=== PATIENT | male | born 1990 | race Caucasian/White ===

== ENCOUNTER 2019-03-31 14:30 | Outpatient (RCR) | payer OTHER, MEDICAID, SELFPAY ==
--- NOTE | 2017-08-19 11:21 | PT.OTN ---
Current Diagnoses Spastic hemiplegia affecting right dominant side (08/19/17) Cerebral infarction due to unspecified occlusion or stenosis of left middle cerebral artery (08/19/17) Difficulty in walking, not elsewhere classified (08/19/17) Repeated falls (08/19/17) Apraxia (08/19/17) Weakness (08/19/17) Transition note: On August 17, 2017 our therapy services consisting of Speech, Occupational, and Physical Therapy transitioned from the [employer] electronic documentation system to a new [employer] electronic documentation system.?? All documentation prior to August 17 can be found under [employer] saved data. From August 17 forward all medical record documentation will be in [employer] 6.1.
--- NOTE | 2017-08-19 18:11 | PT.OTN ---
Current Diagnoses Spastic hemiplegia affecting right dominant side (08/19/17) Cerebral infarction due to unspecified occlusion or stenosis of left middle cerebral artery (08/19/17) Difficulty in walking, not elsewhere classified (08/19/17) Repeated falls (08/19/17) Apraxia (08/19/17) Weakness (08/19/17) Physical Therapy Treatment Note PT-OP-A Visit Information Start: 08/19/17 08:09 Freq: Status: Active Protocol: Activity Type Activity Date Activity User E-Sign Co-Sign Detail Recorded Client Recorded Date Recorded By Document 08/19/17 11:25 [facility] [id number] 08/19/17 11:28 [facility] 08/19/17 11:25 Out-Patient Physical Therapy Visit Information [Visit Information] -Visit Type Treatment Note -Visit Start Time 11:17 -Visit Stop Time 12:15 -Total Visit Minutes 58 -Visit Number 23 -Number of WIRE WRAPPER MACHINE OPERATOR Visits 0 PT-OP-C Subjective Start: 08/19/17 08:09 Freq: Status: Active Protocol: Activity Type Activity Date Activity User E-Sign Co-Sign Detail Recorded Client Recorded Date Recorded By Document 08/19/17 11:14 [facility] [id number] 08/19/17 11:25 [facility] 08/19/17 11:14 OP-PT Subjective [Patient Comments] -Patient Comments No new c/o, hasn't ridden exerise bike yet: I forgot. Planted seeds in greenhouse. No falls recently ; fell while pulling wheel [place] 1 month ago, no injury. PT-OP-Q Treatments Start: 08/19/17 08:09 Freq: Status: Active Protocol: Activity Type Activity Date Activity User E-Sign Co-Sign Detail Recorded Client Recorded Date Recorded By Document 08/19/17 18:06 [facility] [id number] 08/19/17 18:10 [facility] 08/19/17 18:06 Cardio Equipment [Bicycle (Upright)] -Duration (Minutes) 10 -Resistance 9 -Seat Position 6 -Other 4 rounds of 30 :30 intervals Gym Equipment [Shuttle Balance] 1 -Details side to side and fwd/bck without AFO -Reps/Duration 10 Gait Training [Gait Activity] 2 -Description Gait with emphasis on narrowing gait -Surface short carpet -Distance/Duration 6 min -Comments no AFO 1 -Description stair gait on multiple staircases -Device Used rail or PT manual -Comments gait indoors and outdoors 4 , 6, with and without rail ( PT assist without rail) PT-OP-R Modalities Start: 08/19/17 08:09 Freq: Status: Active Protocol: Activity Type Activity Date Activity User E-Sign Co-Sign Detail Recorded Client Recorded Date Recorded By Document 08/19/17 18:10 [facility] [id number] 08/19/17 18:11 [facility] 08/19/17 18:10 Electric Stimulation [Electric Stimulation] [place] Stimulation -Duration (Minutes) 10 -Contraction Type Normal -High/Low High -Cycle 10/10 -Patient Position Sitting PT-OP-T Assessment and Plan Start: 08/19/17 08:09 Freq: Status: Active Protocol: Activity Type Activity Date Activity User E-Sign Co-Sign Detail Recorded Client Recorded Date Recorded By Document 08/19/17 18:10 [facility] [id number] 08/19/17 18:11 [facility] 08/19/17 18:10 Physical Therapy Assessment [Progress Towards Goals] -Progress Towards Goals Progressing Toward Goals Physical Therapy Plan [Next Visit Focus/Plan] -Next Visit Plan Progress PT for improved gait, balance, strength, functional activities
--- NOTE | 2017-08-26 16:48 | PT.OTN ---
Current Diagnoses Spastic hemiplegia affecting right dominant side (08/26/17) Cerebral infarction due to unspecified occlusion or stenosis of left middle cerebral artery (08/26/17) Difficulty in walking, not elsewhere classified (08/26/17) Repeated falls (08/26/17) Apraxia (08/26/17) Weakness (08/26/17) Physical Therapy Treatment Note PT-OP-A Visit Information Start: 08/19/17 08:09 Freq: Status: Active Protocol: Document 08/19/17 11:25 SAK (Rec: 08/19/17 11:28 SAK [id number]) Out-Patient Physical Therapy Visit Information Visit Information Visit Type Treatment Note Visit Start Time 11:17 Visit Stop Time 12:15 Total Visit Minutes 58 Visit Number 23 Number of DATABASES SOFTWARE CONSULTANT Visits 0 PT-OP-C Subjective Start: 08/19/17 08:09 Freq: Status: Active Protocol: Document 08/26/17 11:25 SAK (Rec: 08/26/17 12:59 [facility] [id number]) OP-PT Subjective Patient Comments Patient Comments LE's fatigued after lots of gardening yesterday Patient Reported Progress Improving PT-OP-Q Treatments Start: 08/19/17 08:09 Freq: Status: Active Protocol: Document 08/26/17 11:25 SAK (Rec: 08/26/17 12:59 [facility] [id number]) Cardio Equipment Bicycle (Upright) Duration (Minutes) 10 Resistance 9 Seat Position 6 Other 4 rounds of 30:30 intervals Gym Equipment Shuttle Balance 1 Details side to side and fwd/bck without AFO Reps/Duration 10 Comments no AFO Sport Cord 1 Exercise Details forward, back, side Cord/Resistance 2 Gait Training Gait Activity 2 Description Gait with emphasis on narrowing gait Surface short carpet Distance/Duration 6 min Comments no AFO, mirror for visual feedback, verbal and manual cues for gluteal activation, upright posture for safe gait PT-OP-R Modalities Start: 08/19/17 08:09 Freq: Status: Active Protocol: Document 08/26/17 11:25 SAK (Rec: 08/26/17 12:59 [facility] [id number]) Electric Stimulation Electric Stimulation [place] Stimulation Duration (Minutes) 10 Contraction Type Normal High/Low High Cycle 10/10 Patient Position Sitting PT-OP-T Assessment and Plan Start: 08/19/17 08:09 Freq: Status: Active Protocol: Document 08/26/17 16:32 [facility] (Rec: 08/26/17 16:48 [facility] [id number]) Physical Therapy Assessment Progress Towards Goals Progress Comments Improved gait with use of sport cord and focus on correct gluteal activation and sequencing as well as hutson bag on head for improved core control and upright posture with gait and decreased lateral sway. Physical Therapy Plan Frequency and Duration Frequency of Treatment 2x/Week Duration of Treatment 3 months Plan of Care Start Date 07/21/17 Plan of Care End Date 10/19/17 Therapeutic Interventions Therapeutic Interventions Aquatic Therapy Balance Training Gait Training Home Exercise Program Neuromuscular Re-education Patient/Caregiver Education Self-Care/Home Management Therapeutic Activities Therapeutic Exercises
--- NOTE | 2017-09-23 13:46 | PT.OTN ---
Current Diagnoses Spastic hemiplegia affecting right dominant side (09/23/17) Cerebral infarction due to unspecified occlusion or stenosis of left middle cerebral artery (09/23/17) Difficulty in walking, not elsewhere classified (09/23/17) Repeated falls (09/23/17) Apraxia (09/23/17) Weakness (09/23/17) Physical Therapy Treatment Note PT-OP-A Visit Information Start: 08/19/17 08:09 Freq: Status: Active Protocol: Document 09/23/17 11:22 [facility] (Rec: 09/23/17 13:45 [facility] [id number]) Out-Patient Physical Therapy Visit Information Visit Information Visit Type Treatment Note Visit Start Time 11:15 Visit Stop Time 12:00 Total Visit Minutes 45 PT-OP-C Subjective Start: 08/19/17 08:09 Freq: Status: Active Protocol: Document 09/23/17 11:22 [facility] (Rec: 09/23/17 13:45 [facility] [id number]) OP-PT Subjective Patient Comments Patient Comments Reports he has been using his outdoor tricycle. Notes he wants to work on steps PT-OP-Q Treatments Start: 08/19/17 08:09 Freq: Status: Active Protocol: Document 09/23/17 11:22 [facility] (Rec: 09/23/17 13:45 [facility] [id number]) Cardio Equipment Bicycle (Upright) Duration (Minutes) 10 Resistance 9 Seat Position 6 Other 4 rounds of 30:30 intervals Gym Equipment Shuttle Balance 2 Details shuttle squats 1 Details side to side and fwd/bck without AFO Reps/Duration 10 Comments no AFO balance in each position then wt shifting Therapeutic Exercises Standing Exercises 1 Standing Exercise Name lunge on bosu Reps/Minutes 15 Gait Training Gait Activity 3 Description up 6 in steps and down 4 in steps Comments no rails PT-OP-R Modalities Start: 08/19/17 08:09 Freq: Status: Active Protocol: Document 08/26/17 11:25 [facility] (Rec: 08/26/17 12:59 [facility]AK [id number]) Electric Stimulation Electric Stimulation Bulgarian Stimulation Duration (Minutes) 10 Contraction Type Normal High/Low High Cycle 10/10 Patient Position Sitting PT-OP-T Assessment and Plan Start: 08/19/17 08:09 Freq: Status: Active Protocol: Document 09/23/17 11:22 [facility] (Rec: 09/23/17 13:45 [facility] [id number]) Physical Therapy Assessment Assessment Summary Assessment Pt did well with ascending stairs without rail with minor imbalance but had difficulty w/ decent. Encouraged to cont working on SLS. Unable to get stim contraction today. Physical Therapy Plan Frequency and Duration Frequency of Treatment 2x/Week Duration of Treatment 3 months Plan of Care Start Date 07/21/17 Plan of Care End Date 10/19/17 Therapeutic Interventions Therapeutic Interventions Aquatic Therapy Balance Training Gait Training Home Exercise Program Neuromuscular Re-education Patient/Caregiver Education Self-Care/Home Management Therapeutic Activities Therapeutic Exercises Next Visit Focus/Plan Next Visit Plan Cont to work on strength & balance Please Sign and Return: I have reviewed this Plan of Care and certify that the skilled therapy services above are required to meet the patient?s needs. Physician Signature Date Printed Name and Credentials Clinical Instructor Signature Printed Name and Credentials
--- NOTE | 2017-09-27 14:51 | PT.OTN ---
Current Diagnoses Spastic hemiplegia affecting right dominant side (09/27/17) Cerebral infarction due to unspecified occlusion or stenosis of left middle cerebral artery (09/27/17) Difficulty in walking, not elsewhere classified (09/27/17) Repeated falls (09/27/17) Apraxia (09/27/17) Weakness (09/27/17) Physical Therapy Treatment Note PT-OP-A Visit Information Start: 08/19/17 08:09 Freq: Status: Active Protocol: Document 09/27/17 11:30 [facility] (Rec: 09/27/17 14:51 TMS [email or web address]) Out-Patient Physical Therapy Visit Information Visit Information Visit Type Treatment Note Visit Start Time 11:00 Visit Stop Time 11:45 Total Visit Minutes 45 Number of FAMILY AND MARRIAGE COUNSELLOR Visits 1 PT-OP-C Subjective Start: 08/19/17 08:09 Freq: Status: Active Protocol: Document 09/27/17 11:30 [facility] (Rec: 09/27/17 14:51 [facility]MS [email or web address]) OP-PT Subjective Patient Comments Patient Comments Pt. has estefania godoy. PT-OP-Q Treatments Start: 08/19/17 08:09 Freq: Status: Active Protocol: Document 09/23/17 11:22 [facility] (Rec: 09/23/17 13:45 [facility] [id number]) Cardio Equipment Bicycle (Upright) Duration (Minutes) 10 Resistance 9 Seat Position 6 Other 4 rounds of 30:30 intervals Gym Equipment Shuttle Balance 2 Details shuttle squats 1 Details side to side and fwd/bck without AFO Reps/Duration 10 Comments no AFO balance in each position then wt shifting Therapeutic Exercises Standing Exercises 1 Standing Exercise Name lunge on bosu Reps/Minutes 15 Gait Training Gait Activity 3 Description up 6 in steps and down 4 in steps Comments no rails PT-OP-R Modalities Start: 08/19/17 08:09 Freq: Status: Active Protocol: Document 08/26/17 11:25 [facility]AK (Rec: 08/26/17 12:59 SAK [id number]) Electric Stimulation Electric Stimulation Estonian Stimulation Duration (Minutes) 10 Contraction Type Normal High/Low High Cycle 10/10 Patient Position Sitting PT-OP-S Aquatic Treatment Start: 09/27/17 14:34 Freq: Status: Active Protocol: Document 09/27/17 11:30 [facility] (Rec: 09/27/17 14:51 [facility] [email or web address]) Aquatics Treatment Pool Entry/Exit Pool Entry/Exit Method Stairs Assistance Standby Assistance Comments Down;step over step. Up; Step over for 2, step to for 2. Water Walking Sideways Water Level Chest Level Level of Assistance Standby Assistance Forwards Water Level Chest Level Level of Assistance Standby Assistance Comments Cues Lower Extremity Exercises 5 Details Single leg standing Body Position Standing Water Level Waist Level 4 Details Step ups Body Position Standing Water Level Waist Level Comments 4 and 6 inch boxes 3 Details Lunges Body Position Standing Water Level Waist Level Equipment St 2 Details Squats Body Position Standing Water Level Chest Level 1 Details Clock steps Body Position Standing Water Level Chest Level Lower Extremity Stretches 1 Details Gastroc stretching Body Position Standing Water Level Waist Level Comments Manual assist Orange Activities Orange Activities Bicycle [place] Hip Abduction/Adduction Sit Kicks Equipment Belt Duration 3 minutes of each Swim Strokes Backstroke Comments 6 minutes PT-OP-T Assessment and Plan Start: 08/19/17 08:09 Freq: Status: Active Protocol: Document 09/27/17 11:30 [facility] (Rec: 09/27/17 14:51 [facility] [id number]) Physical Therapy Assessment Assessment Summary Assessment Pt. able to step over step descending into pool, only able to step over step for 2 steps ascending. Able to self correct with balance activities. Physical Therapy Plan Frequency and Duration Frequency of Treatment 2x/Week Duration of Treatment 3 months Plan of Care Start Date 07/21/17 Plan of Care End Date 10/19/17 Next Visit Focus/Plan Next Visit Plan Cont to work on strength & balance Please Sign and Return: I have reviewed this Plan of Care and certify that the skilled therapy services above are required to meet the patient?s needs. Physician Signature Date Printed Name and Credentials Clinical Instructor Signature Printed Name and Credentials
--- NOTE | 2017-10-19 17:08 | PT.OTN ---
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 (10/18/17) Difficulty in walking, not elsewhere classified (10/18/17) Repeated falls (10/18/17) Apraxia (10/18/17) Weakness (10/18/17) Physical Therapy Treatment Note PT-OP-A Visit Information Start: 08/19/17 08:09 Freq: Status: Active Protocol: Document 10/18/17 12:15 SAK (Rec: 10/19/17 17:08 [facility] [id number]) Out-Patient Physical Therapy Visit Information Visit Information Visit Type Treatment Note Visit Start Time 12:15 Visit Stop Time 13:00 Total Visit Minutes 45 Number of SHOPPER'S AIDE Visits 0 PT-OP-C Subjective Start: 08/19/17 08:09 Freq: Status: Active Protocol: Document 10/18/17 12:15 SAK (Rec: 10/19/17 17:08 [facility] [id number]) OP-PT Subjective Patient Comments Patient Comments Reports he feels he is walking faster, continues to benefit from PT. No recent falls or seizures. Patient Reported Progress Improving PT-OP-Q Treatments Start: 08/19/17 08:09 Freq: Status: Active Protocol: Document 09/23/17 11:22 LR (Rec: 09/23/17 13:45 [facility] [id number]) Cardio Equipment Bicycle (Upright) Duration (Minutes) 10 Resistance 9 Seat Position 6 Other 4 rounds of 30:30 intervals Gym Equipment Shuttle Balance 2 Details shuttle squats 1 Details side to side and fwd/bck without AFO Reps/Duration 10 Comments no AFO balance in each position then wt shifting Therapeutic Exercises Standing Exercises 1 Standing Exercise Name lunge on bosu Reps/Minutes 15 Gait Training Gait Activity 3 Description up 6 in steps and down 4 in steps Comments no rails PT-OP-R Modalities Start: 08/19/17 08:09 Freq: Status: Active Protocol: Document 08/26/17 11:25 SAK (Rec: 08/26/17 12:59 SAK [id number]) Electric Stimulation Electric Stimulation [place] Stimulation Duration (Minutes) 10 Contraction Type Normal High/Low High Cycle 10/10 Patient Position Sitting PT-OP-S Aquatic Treatment Start: 09/27/17 14:34 Freq: Status: Active Protocol: Document 10/18/17 12:15 [facility] (Rec: 10/19/17 17:08 [facility] [id number]) Aquatics Treatment Pool Entry/Exit Pool Entry/Exit Method Stairs Assistance Standby Assistance Comments Down;step over step. Up; Step over for 2, step to for 2. Water Walking Backwards Water Level Chest Level Level of Assistance Standby Assistance Comments cues Sideways Water Level Chest Level Level of Assistance Standby Assistance Comments cues Forwards Water Level Chest Level Level of Assistance Standby Assistance Comments Cues Lower Extremity Exercises 5 Details Single leg standing Body Position Standing Water Level Waist Level 4 Details Step ups Body Position Standing Water Level Waist Level Comments 4 and 6 inch boxes 3 Details Lunges Body Position Standing Water Level Waist Level Equipment St 2 Details Squats Body Position Standing Water Level Chest Level Lower Extremity Stretches 1 Details Gastroc stretching Body Position Standing Water Level Waist Level Comments Manual assist Upper Extremity Exercises 1 Details shoulder hor ab/ad, flex/ext, push/pull Body Position Standing Water Level Chest Level Equipment pink resistance barbell Comments cues for core engagement Cary Activities Cary Activities Bicycle [place] Hip Abduction/Adduction Sit Kicks Equipment Belt Swim Strokes Backstroke Comments 5 minutes PT-OP-T Assessment and Plan Start: 08/19/17 08:09 Freq: Status: Active Protocol: Document 10/18/17 12:15 [facility] (Rec: 10/19/17 17:08 [facility] [id number]) Physical Therapy Assessment Rehab Potential Rehabilitation Potential Good Impairments Impairments Balance Functional Activities Functional Mobility Gait Strength Tone Progress Towards Goals Progress Towards Goals Progressing Toward Goals Progress Comments Limited PT over hpast month due to patient vacation, PT vacation and illness. Assessment Summary Assessment Patient continues to benefit from PT, recommend continued combination of land and aquatic PT. Physical Therapy Plan Frequency and Duration Frequency of Treatment 2x/Week Duration of Treatment 3 months Plan of Care Start Date 10/18/17 Plan of Care End Date 01/17/18 Therapeutic Interventions Therapeutic Interventions Aquatic Therapy Balance Training Gait Training Home Exercise Program Neuromuscular Re-education Patient/Caregiver Education Self-Care/Home Management Therapeutic Activities Therapeutic Exercises Next Visit Focus/Plan Next Note Type Re-Evaluation Next Visit Plan Patient seen for aquatic therapy today, unable to perform objective reassessment measures; will reassess next session.
--- NOTE | 2017-10-24 09:43 | PT.OTN ---
Current Diagnoses Spastic hemiplegia affecting right dominant side (10/21/17) Cerebral infarction due to unspecified occlusion or stenosis of left middle cerebral artery (10/21/17) Difficulty in walking, not elsewhere classified (10/21/17) Repeated falls (10/21/17) Apraxia (10/21/17) Weakness (10/21/17) Physical Therapy Treatment Note PT-OP-A Visit Information Start: 08/19/17 08:09 Freq: Status: Active Protocol: Document 10/21/17 11:15 SAK (Rec: 10/24/17 09:43 [facility] [id number]) Out-Patient Physical Therapy Visit Information Visit Information Visit Type Re-Evaluation Visit Start Time 11:15 Visit Stop Time 13:10 Total Visit Minutes 55 Number of SLITTER OPERATOR Visits 0 PT-OP-C Subjective Start: 08/19/17 08:09 Freq: Status: Active Protocol: Document 10/21/17 11:15 SAK (Rec: 10/24/17 09:43 [facility] [id number]) OP-PT Subjective Patient Comments Patient Comments Reports he feels he is walking faster, continues to benefit from PT. No recent falls or seizures. Mother reports noting balance difficulty especially with some functional tasks such as in/ out of car, gait on uneven surfaces. Patient Reported Progress Improving PT-OP-Q Treatments Start: 08/19/17 08:09 Freq: Status: Active Protocol: Document 10/21/17 11:15 SAK (Rec: 10/24/17 09:43 [facility] [id number]) Cardio Equipment Bicycle (Upright) Duration (Minutes) 10 Resistance 9 Seat Position 6 Other 4 rounds of 30:30 intervals Therapeutic Exercises Standing Exercises 2 Standing Exercise Name HC stretch Equipment Used LINNETTE Reps/Minutes 2 1 Standing Exercise Name lunge on bosu Reps/Minutes 15x Gait Training Gait Activity 3 Description up 6 in steps and down 4 in steps Comments no rails 2 Description Gait with emphasis on narrowing gait Surface short carpet Distance/Duration 6 min Comments no AFO, mirror for visual feedback, verbal and manual cues for gluteal activation, upright posture for safe gait Neuro Re-Education Treatment Balance Activities 3 Details lunge walk Reps/Duration 2 min 2 Details obstacle course including stepping over hurdles onto foam, balance beam Comments catches right LE on yana when it is trailing leg, mod assist for balance outside of parallel bars. Fatigues quickly 1 Details SLS Comments mirror for visual feedback. 1 sec right, 12 sec left Self-Care/Home Management Treatment Education Other Education Increase emphasis on SLS, lunge walk for balance and hip stability PT-OP-R Modalities Start: 08/19/17 08:09 Freq: Status: Active Protocol: Document 08/26/17 11:25 [facility] (Rec: 08/26/17 12:59 [facility] [id number]) Electric Stimulation Electric Stimulation Turkish Stimulation Duration (Minutes) 10 Contraction Type Normal High/Low High Cycle 10/10 Patient Position Sitting PT-OP-S Aquatic Treatment Start: 09/27/17 14:34 Freq: Status: Active Protocol: Document 10/18/17 12:15 [facility] (Rec: 10/19/17 17:08 [facility] [id number]) Aquatics Treatment Pool Entry/Exit Pool Entry/Exit Method Stairs Assistance Standby Assistance Comments Down;step over step. Up; Step over for 2, step to for 2. Water Walking Backwards Water Level Chest Level Level of Assistance Standby Assistance Comments cues Sideways Water Level Chest Level Level of Assistance Standby Assistance Comments cues Forwards Water Level Chest Level Level of Assistance Standby Assistance Comments Cues Lower Extremity Exercises 5 Details Single leg standing Body Position Standing Water Level Waist Level 4 Details Step ups Body Position Standing Water Level Waist Level Comments 4 and 6 inch boxes 3 Details Lunges Body Position Standing Water Level Waist Level Equipment St 2 Details Squats Body Position Standing Water Level Chest Level Lower Extremity Stretches 1 Details Gastroc stretching Body Position Standing Water Level Waist Level Comments Manual assist Upper Extremity Exercises 1 Details shoulder hor ab/ad, flex/ext, push/pull Body Position Standing Water Level Chest Level Equipment pink resistance barbell Comments cues for core engagement Holcomb Activities Holcomb Activities Bicycle Cross Country Hip Abduction/Adduction Sit Kicks Equipment Belt Swim Strokes Backstroke Comments 5 minutes PT-OP-T Assessment and Plan Start: 08/19/17 08:09 Freq: Status: Active Protocol: Document 10/21/17 11:15 [facility] (Rec: 10/24/17 09:43 [facility] [id number]) Physical Therapy Assessment Rehab Potential Rehabilitation Potential Good Impairments Impairments Balance Functional Activities Functional Mobility Gait Strength Tone Goals Five Impairment strength Touch Up Painter Goal (LTG) Patient will improve his LE strength to be able to step over a 6 object independently and safely with either LE without catching foot or losing balance LTG Duration 3 months Four Impairment functional mobility Retirement Goal (LTG) Patient able to perform car transfers and floor transfers with ease, without loss of balance to improve his safety and quality of life LTG Duration 3 months Three Impairment Patient education Retirement Goal (LTG) Progress HEP, patient to be independent and compliant with updated HEP as his function continues to improve LTG Duration 3 months Two Impairment balance Touch Up Painter Goal (LTG) Improve Dynamic gait index to 19 or greater out of 24 for decreased fall risk LTG Duration 3 months One Impairment functional mobility/gait Retirement Goal (LTG) Patient to improve 6 min walk test test to 1200 feet. LTG Duration 3 months Progress Towards Goals Progress Comments Improved his 6 min walk test from 703 feet to 923 feet since last tested, and improved his Dynamic Gait Index score from 8 to 13/24; improved fulnctional gaitspeed , no device but wearing AFO, improved stability with gait but still fall risk. Assessment Summary Assessment Patient continues to benefit from PT, recommend continued combination of land and aquatic PT. Recommend continued PT Physical Therapy Plan Frequency and Duration Frequency of Treatment 2x/Week Duration of Treatment 3 months Plan of Care Start Date 10/21/17 Plan of Care End Date 01/21/18 Therapeutic Interventions Therapeutic Interventions Aquatic Therapy Balance Training Gait Training Home Exercise Program Neuromuscular Re-education Patient/Caregiver Education Self-Care/Home Management Therapeutic Activities Therapeutic Exercises Next Visit Focus/Plan Next Note Type Treatment Note Next Visit Plan Progress with balance, gait, strengthening, functional mobility training
--- NOTE | 2017-10-24 09:43 | PT.OPPOC ---
Current Diagnoses Spastic hemiplegia affecting right dominant side (10/21/17) Cerebral infarction due to unspecified occlusion or stenosis of left middle cerebral artery (10/21/17) Difficulty in walking, not elsewhere classified (10/21/17) Repeated falls (10/21/17) Apraxia (10/21/17) Weakness (10/21/17) Provider Visit Care Team Role Provider Type H Naman Olmstead MD Family Provider Non-Staff Primary Care Provider Specialty: Medical Address: [address] [place] [address], [place], [address] Email: Marietta Lawler Attending Provider Non-Staff Specialty: Medical Address: [address] [place] [address], [address] Email: Plan Of Care PT-OP-T Assessment and Plan Start: 08/19/17 08:09 Freq: Status: Active Protocol: Document 10/21/17 11:15 SAK (Rec: 10/24/17 09:43 SAK [id number]) Physical Therapy Assessment Rehab Potential Rehabilitation Potential Good Impairments Impairments Balance Functional Activities Functional Mobility Gait Strength Tone Goals Five Impairment strength Half-Way Goal (LTG) Patient will improve his LE strength to be able to step over a 6 object independently and safely with either LE without catching foot or losing balance LTG Duration 3 months Four Impairment functional mobility Half-Way Goal (LTG) Patient able to perform car transfers and floor transfers with ease, without loss of balance to improve his safety and quality of life LTG Duration 3 months Three Impairment Patient education Extrusion Operator Goal (LTG) Progress HEP, patient to be independent and compliant with updated HEP as his function continues to improve LTG Duration 3 months Two Impairment balance Extrusion Operator Goal (LTG) Improve Dynamic gait index to 19 or greater out of 24 for decreased fall risk LTG Duration 3 months One Impairment functional mobility/gait Half-Way Goal (LTG) Patient to improve 6 min walk test test to 1200 feet. LTG Duration 3 months Progress Towards Goals Progress Comments Improved his 6 min walk test from 703 feet to 923 feet since last tested, and improved his Dynamic Gait Index score from 8 to 13/24; improved fulnctional gaitspeed , no device but wearing AFO, improved stability with gait but still fall risk. Assessment Summary Assessment Patient continues to benefit from PT, recommend continued combination of land and aquatic PT. Recommend continued PT Physical Therapy Plan Frequency and Duration Frequency of Treatment 2x/Week Duration of Treatment 3 months Plan of Care Start Date 10/21/17 Plan of Care End Date 01/21/18 Therapeutic Interventions Therapeutic Interventions Aquatic Therapy Balance Training Gait Training Home Exercise Program Neuromuscular Re-education Patient/Caregiver Education Self-Care/Home Management Therapeutic Activities Therapeutic Exercises Next Visit Focus/Plan Next Note Type Treatment Note Next Visit Plan Progress with balance, gait, strengthening, functional mobility training Plan of Care Dates Plan of Care Start Date 10/21/17 Plan of Care End Date 01/21/18 Please Sign and Return: I have reviewed this Plan of Care and certify that the skilled therapy services above are required to meet the patient?s needs. Physician Signature Date Printed Name and Credentials Clinical Instructor Signature Printed Name and Credentials
--- NOTE | 2017-10-28 12:54 | PT.OTN ---
Current Diagnoses Spastic hemiplegia affecting right dominant side (10/28/17) Cerebral infarction due to unspecified occlusion or stenosis of left middle cerebral artery (10/28/17) Difficulty in walking, not elsewhere classified (10/28/17) Repeated falls (10/28/17) Apraxia (10/28/17) Weakness (10/28/17) Physical Therapy Treatment Note PT-OP-A Visit Information Start: 08/19/17 08:09 Freq: Status: Active Protocol: Document 10/28/17 11:15 SAK (Rec: 10/28/17 12:54 [facility] [id number]) Out-Patient Physical Therapy Visit Information Visit Information Visit Type Treatment Note Visit Start Time 11:15 Visit Stop Time 13:10 Total Visit Minutes 60 Number of SOCIAL MEDIA CAMPAIGN MANAGER Visits 0 PT-OP-C Subjective Start: 08/19/17 08:09 Freq: Status: Active Protocol: Document 10/28/17 11:15 SAK (Rec: 10/28/17 12:54 [facility] [id number]) OP-PT Subjective Patient Comments Patient Comments Mother expressed concern over patient difficulty transferring into family pick- up. PT-OP-Q Treatments Start: 08/19/17 08:09 Freq: Status: Active Protocol: Document 10/28/17 11:15 SAK (Rec: 10/28/17 12:54 [facility] [id number]) Gym Equipment Shuttle Balance 1 Details side to side and fwd/bck without AFO Reps/Duration 10 Comments no AFO balance in each position then wt shifting Therapeutic Exercises Standing Exercises 1 Standing Exercise Name lunge on bosu Side bilateral Reps/Minutes 10x ea Comments CG to mod assist for bal Therapeutic Activity Therapeutic Activity 1 Name transfer training into pick-up Reps/Minutes 15 min Comments Problem-solving transfer into passenger side front and back seats. After instruction patient able to transfer with ease. Unable to transfer into right side of back seat without assistance, step-stool recommended. Gait Training Gait Activity 5 Description stepping over hurdles Level of Assistance CG to min assist 4 Description backward gait Level of Assistance SBA, cues Surface level Treatment Focus increased hip extension Neuro Re-Education Treatment Balance Activities 2 Details balance beam Comments wearing AFO. CG to mod assist for balance. Improved from last session. PT-OP-R Modalities Start: 08/19/17 08:09 Freq: Status: Active Protocol: Document 08/26/17 11:25 SAK (Rec: 08/26/17 12:59 [facility] [id number]) Electric Stimulation Electric Stimulation [place] Stimulation Duration (Minutes) 10 Contraction Type Normal High/Low High Cycle 10/10 Patient Position Sitting PT-OP-S Aquatic Treatment Start: 09/27/17 14:34 Freq: Status: Active Protocol: Document 10/18/17 12:15 [facility] (Rec: 10/19/17 17:08 [facility] [id number]) Aquatics Treatment Pool Entry/Exit Pool Entry/Exit Method Stairs Assistance Standby Assistance Comments Down;step over step. Up; Step over for 2, step to for 2. Water Walking Backwards Water Level Chest Level Level of Assistance Standby Assistance Comments cues Sideways Water Level Chest Level Level of Assistance Standby Assistance Comments cues Forwards Water Level Chest Level Level of Assistance Standby Assistance Comments Cues Lower Extremity Exercises 5 Details Single leg standing Body Position Standing Water Level Waist Level 4 Details Step ups Body Position Standing Water Level Waist Level Comments 4 and 6 inch boxes 3 Details Lunges Body Position Standing Water Level Waist Level Equipment St 2 Details Squats Body Position Standing Water Level Chest Level Lower Extremity Stretches 1 Details Gastroc stretching Body Position Standing Water Level Waist Level Comments Manual assist Upper Extremity Exercises 1 Details shoulder hor ab/ad, flex/ext, push/pull Body Position Standing Water Level Chest Level Equipment pink resistance barbell Comments cues for core engagement [place] Activities [place] Activities Bicycle [place] Hip Abduction/Adduction Sit Kicks Equipment Belt Swim Strokes Backstroke Comments 5 minutes PT-OP-T Assessment and Plan Start: 08/19/17 08:09 Freq: Status: Active Protocol: Document 10/28/17 11:15 [facility] (Rec: 10/28/17 12:54 [facility] [id number]) Physical Therapy Assessment Assessment Summary Assessment Good performance of transfer into passenger side of pick-up after training. Recommend step stool for driver material handler's side back seat Physical Therapy Plan Frequency and Duration Frequency of Treatment 2x/Week Duration of Treatment 3 months Plan of Care Start Date 10/21/17 Plan of Care End Date 01/21/18 Therapeutic Interventions Therapeutic Interventions Aquatic Therapy Balance Training Gait Training Home Exercise Program Neuromuscular Re-education Patient/Caregiver Education Self-Care/Home Management Therapeutic Activities Therapeutic Exercises Next Visit Focus/Plan Next Note Type Treatment Note Next Visit Plan Progress with balance, gait, strengthening, functional mobility training. Emphasize increased active hip extension strength for transfer and activation for improved gait.
--- NOTE | 2017-11-01 13:00 | PT.OTN ---
Current Diagnoses Spastic hemiplegia affecting right dominant side (11/01/17) Cerebral infarction due to unspecified occlusion or stenosis of left middle cerebral artery (11/01/17) Difficulty in walking, not elsewhere classified (11/01/17) Repeated falls (11/01/17) Apraxia (11/01/17) Weakness (11/01/17) Physical Therapy Treatment Note PT-OP-A Visit Information Start: 08/19/17 08:09 Freq: Status: Active Protocol: Document 11/01/17 13:00 TMS (Rec: 11/01/17 15:41 TMS [email or web address]) Out-Patient Physical Therapy Visit Information Visit Information Visit Type Treatment Note Visit Start Time 12:15 Visit Stop Time 13:00 Total Visit Minutes 45 Number of FUR REMODELER Visits 1 PT-OP-C Subjective Start: 08/19/17 08:09 Freq: Status: Active Protocol: Document 11/01/17 13:00 TMS (Rec: 11/01/17 15:41 TMS [email or web address]) OP-PT Subjective Patient Comments Patient Comments No new complaints. PT-OP-Q Treatments Start: 08/19/17 08:09 Freq: Status: Active Protocol: Document 10/28/17 11:15 SAK (Rec: 10/28/17 12:54 SAK [id number]) Gym Equipment Shuttle Balance 1 Details side to side and fwd/bck without AFO Reps/Duration 10 Comments no AFO balance in each position then wt shifting Therapeutic Exercises Standing Exercises 1 Standing Exercise Name lunge on bosu Side bilateral Reps/Minutes 10x ea Comments CG to mod assist for bal Therapeutic Activity Therapeutic Activity 1 Name transfer training into pick-up Reps/Minutes 15 min Comments Problem-solving transfer into passenger side front and back seats. After instruction patient able to transfer with ease. Unable to transfer into right side of back seat without assistance, step-stool recommended. Gait Training Gait Activity 5 Description stepping over hurdles Level of Assistance CG to min assist 4 Description backward gait Level of Assistance SBA, cues Surface level Treatment Focus increased hip extension Neuro Re-Education Treatment Balance Activities 2 Details balance beam Comments wearing AFO. CG to mod assist for balance. Improved from last session. PT-OP-R Modalities Start: 08/19/17 08:09 Freq: Status: Active Protocol: Document 08/26/17 11:25 SAK (Rec: 08/26/17 12:59 SAK [id number]) Electric Stimulation Electric Stimulation [place] Stimulation Duration (Minutes) 10 Contraction Type Normal High/Low High Cycle 10/10 Patient Position Sitting PT-OP-S Aquatic Treatment Start: 09/27/17 14:34 Freq: Status: Active Protocol: Document 11/01/17 13:00 TMS (Rec: 11/01/17 15:41 TMS [id number]) Aquatics Treatment Pool Entry/Exit Pool Entry/Exit Method Stairs Assistance Standby Assistance Comments Down;step over step. Up; Step over for 2, step to for 2. Water Walking Sideways Water Level Chest Level Level of Assistance Standby Assistance Forwards Water Level Chest Level Level of Assistance Standby Assistance Comments Cues Lower Extremity Exercises 5 Details Single leg standing Body Position Standing Water Level Chest Level 4 Details Step ups Body Position Standing Water Level Waist Level Comments 4 inch box (at pt's request) 3 Details Lunges Body Position Standing Water Level Waist Level 2 Details Squats Body Position Standing Water Level Chest Level Lower Extremity Stretches 2 Details Hamstring stretching Body Position Standing Water Level Waist Level Comments Manual 1 Details Gastroc stretching Body Position Standing Water Level Waist Level Comments Manual assist Upper Extremity Exercises 1 Details shoulder hor ab/ad, flex/ext, push/pull Body Position Standing Water Level Chest Level Equipment pink resistance barbell [place] Activities [place] Activities Bicycle [place] Hip Abduction/Adduction Equipment Belt Comments Tethered Swim Strokes Backstroke Comments 5 minutes PT-OP-T Assessment and Plan Start: 08/19/17 08:09 Freq: Status: Active Protocol: Document 11/01/17 13:00 TMS (Rec: 11/01/17 15:41 TMS [email or web address]) Physical Therapy Assessment Assessment Summary Assessment Good ROM of right U.E. with back stroke. Pt. requested to use 4 inch boxes vs. 6 inch today secondary right foot tightness. Physical Therapy Plan Frequency and Duration Frequency of Treatment 2x/Week Duration of Treatment 3 months Plan of Care Start Date 10/21/17 Plan of Care End Date 01/21/18 Next Visit Focus/Plan Next Note Type Treatment Note Next Visit Plan Progress with balance, gait, strengthening, functional mobility training. Emphasize increased active hip extension strength for transfer and activation for improved gait.
--- NOTE | 2017-11-04 15:06 | PT.OTN ---
Current Diagnoses Spastic hemiplegia affecting right dominant side (11/04/17) Cerebral infarction due to unspecified occlusion or stenosis of left middle cerebral artery (11/04/17) Difficulty in walking, not elsewhere classified (11/04/17) Repeated falls (11/04/17) Apraxia (11/04/17) Weakness (11/04/17) Physical Therapy Treatment Note PT-OP-A Visit Information Start: 08/19/17 08:09 Freq: Status: Active Protocol: Document 11/04/17 11:15 GGD (Rec: 11/04/17 15:06 GGD [email or web address]) Out-Patient Physical Therapy Visit Information Visit Information Visit Type Treatment Note Visit Start Time 11:15 Visit Stop Time 12:10 Total Visit Minutes 55 Number of LOG CLERK Visits 2 PT-OP-C Subjective Start: 08/19/17 08:09 Freq: Status: Active Protocol: Document 11/04/17 11:15 GGD (Rec: 11/04/17 15:06 GGD [email or web address]) OP-PT Subjective Patient Comments Patient Comments Pt state he is a little tired. PT-OP-Q Treatments Start: 08/19/17 08:09 Freq: Status: Active Protocol: Document 11/04/17 11:15 GGD (Rec: 11/04/17 15:06 GGD [email or web address]) Cardio Equipment Bicycle (Upright) Duration (Minutes) 5 Resistance 9 Seat Position 6 Gym Equipment Shuttle Balance 1 Details side to side and fwd/bck without AFO Reps/Duration 10 Comments Red no AFO balance in each position then wt shifting Therapeutic Exercises Standing Exercises 3 Standing Exercise Name side steps and backwards Resistance yellow Equipment Used T-band Reps/Minutes 2 1 Standing Exercise Name lunge on bosu Side bilateral Reps/Minutes 10x ea Comments CG to mod assist for bal Gait Training Gait Activity 5 Description stepping over hurdles Level of Assistance CG to min assist Neuro Re-Education Treatment Balance Activities 2 Details balance beam Comments wearing AFO. CG to mod assist for balance. Improved from last session. 1 Details SLS Comments mirror for visual feedback. 1 sec right, 12 sec left PT-OP-T Assessment and Plan Start: 08/19/17 08:09 Freq: Status: Active Protocol: Document 11/04/17 11:15 GGD (Rec: 11/04/17 15:06 GGD [email or web address]) Physical Therapy Assessment Goals Five Impairment strength Alf Goal (LTG) Patient will improve his LE strength to be able to step over a 6 object independently and safely with either LE without catching foot or losing balance LTG Duration 3 months Four Impairment functional mobility Stock Manager Goal (LTG) Patient able to perform car transfers and floor transfers with ease, without loss of balance to improve his safety and quality of life LTG Duration 3 months Three Impairment Patient education Stock Manager Goal (LTG) Progress HEP, patient to be independent and compliant with updated HEP as his function continues to improve LTG Duration 3 months Two Impairment balance Alf Goal (LTG) Improve Dynamic gait index to 19 or greater out of 24 for decreased fall risk LTG Duration 3 months One Impairment functional mobility/gait Stock Manager Goal (LTG) Patient to improve 6 min walk test test to 1200 feet. LTG Duration 3 months Assessment Summary Assessment Pt improving balance with balance beem and shuttle balance. He need cues for backwards gait. Physical Therapy Plan Frequency and Duration Frequency of Treatment 2x/Week Duration of Treatment 3 months Plan of Care Start Date 10/21/17 Plan of Care End Date 01/21/18 Next Visit Focus/Plan Next Note Type Treatment Note Next Visit Plan Progress with balance, gait, strengthening, functional mobility training. Emphasize increased active hip extension strength for transfer and activation for improved gait.
--- NOTE | 2017-11-21 14:18 | PT.OTN ---
Current Diagnoses Spastic hemiplegia affecting right dominant side (11/18/17) Cerebral infarction due to unspecified occlusion or stenosis of left middle cerebral artery (11/18/17) Difficulty in walking, not elsewhere classified (11/18/17) Repeated falls (11/18/17) Apraxia (11/18/17) Weakness (11/18/17) Physical Therapy Treatment Note PT-OP-A Visit Information Start: 08/19/17 08:09 Freq: Status: Active Protocol: Document 11/18/17 11:15 SAK (Rec: 11/21/17 14:17 SAK [id number]) Out-Patient Physical Therapy Visit Information Visit Information Visit Type Treatment Note Visit Start Time 11:15 Visit Stop Time 12:15 Total Visit Minutes 60 Number of MANAGER OF INVESTIGATIONS Visits 3 PT-OP-C Subjective Start: 08/19/17 08:09 Freq: Status: Active Protocol: Document 11/18/17 11:15 SAK (Rec: 11/21/17 14:17 SAK [id number]) OP-PT Subjective Patient Comments Patient Comments Reports improved car transfers , difficulty with gait due to continued lack of dorsiflexor strength. Patient Reported Progress Improving PT-OP-Q Treatments Start: 08/19/17 08:09 Freq: Status: Active Protocol: Document 11/18/17 11:15 SAK (Rec: 11/21/17 14:17 SAK [id number]) Cardio Equipment Bicycle (Upright) Duration (Minutes) 5 Resistance 9 Seat Position 6 Other 4 rounds of 30:30 intervals Gait Training Gait Activity 7 Description step-ups on 4 box (up forward , down backward) Level of Assistance SB to min assist for balance Comments Due to mother expressing patient's difficulty when attempting step at exercise class 6 Description Gait with emphasis on symmetry Comments Patient demonstrates increased side flex to right with lack of hip extension on the right during stance due to hip extensor weakness, plantarflexor weakness, and during swing due to dorsiflexor weakness. 4 Description backward gait Level of Assistance SBA, cues Surface level Treatment Focus increased hip extension Neuro Re-Education Treatment Balance Activities 5 Details BOSU lunge Reps/Duration 10x 4 Details obstacle course Equipment foam pods, hurdles, different height boxes, balance beam Reps/Duration 15 min Comments CG to mod assist for balance PT-OP-R Modalities Start: 08/19/17 08:09 Freq: Status: Active Protocol: Document 11/18/17 11:15 SAK (Rec: 11/21/17 14:18 SAK [id number]) Electric Stimulation Electric Stimulation Cuban Stimulation Duration (Minutes) 10 Contraction Type Normal High/Low High Cycle 10/10 Patient Position Sitting PT-OP-S Aquatic Treatment Start: 09/27/17 14:34 Freq: Status: Active Protocol: Document 11/01/17 13:00 TMS (Rec: 11/01/17 15:41 TMS [email or web address]) Aquatics Treatment Pool Entry/Exit Pool Entry/Exit Method Stairs Assistance Standby Assistance Comments Down;step over step. Up; Step over for 2, step to for 2. Water Walking Sideways Water Level Chest Level Level of Assistance Standby Assistance Forwards Water Level Chest Level Level of Assistance Standby Assistance Comments Cues Lower Extremity Exercises 5 Details Single leg standing Body Position Standing Water Level Chest Level 4 Details Step ups Body Position Standing Water Level Waist Level Comments 4 inch box (at pt's request) 3 Details Lunges Body Position Standing Water Level Waist Level 2 Details Squats Body Position Standing Water Level Chest Level Lower Extremity Stretches 2 Details Hamstring stretching Body Position Standing Water Level Waist Level Comments Manual 1 Details Gastroc stretching Body Position Standing Water Level Waist Level Comments Manual assist Upper Extremity Exercises 1 Details shoulder hor ab/ad, flex/ext, push/pull Body Position Standing Water Level Chest Level Equipment pink resistance barbell [place] Activities [place] Activities Bicycle [place] Hip Abduction/Adduction Equipment Belt Comments Tethered Swim Strokes Backstroke Comments 5 minutes PT-OP-T Assessment and Plan Start: 08/19/17 08:09 Freq: Status: Active Protocol: Document 11/18/17 11:15 [facility] (Rec: 11/21/17 14:17 [facility] [id number]) Physical Therapy Assessment Impairments Impairments Balance Functional Activities Functional Mobility Gait Strength Tone Assessment Summary Assessment Patient requires CG to mod assist for balance on uneven surfaces but is improving. Has difficulty self-correcting gait due to learned patterns of movement and weakness Physical Therapy Plan Frequency and Duration Frequency of Treatment 2x/Week Duration of Treatment 3 months Plan of Care Start Date 10/21/17 Plan of Care End Date 01/21/18 Next Visit Focus/Plan Next Note Type Treatment Note Next Visit Plan Continue PT with focus on balance, strengthening, gait training, FES to ankle df.
--- NOTE | 2017-11-22 13:00 | PT.OTN ---
Current Diagnoses Spastic hemiplegia affecting right dominant side (11/22/17) Cerebral infarction due to unspecified occlusion or stenosis of left middle cerebral artery (11/22/17) Difficulty in walking, not elsewhere classified (11/22/17) Repeated falls (11/22/17) Apraxia (11/22/17) Weakness (11/22/17) Physical Therapy Treatment Note PT-OP-A Visit Information Start: 08/19/17 08:09 Freq: Status: Active Protocol: Document 11/22/17 13:00 TMS (Rec: 11/22/17 16:26 TMS [email or web address]) Out-Patient Physical Therapy Visit Information Visit Information Visit Type Treatment Note Visit Start Time 12:15 Visit Stop Time 13:00 Total Visit Minutes 45 Number of TOBACCO STRIPPER Visits 1 PT-OP-C Subjective Start: 08/19/17 08:09 Freq: Status: Active Protocol: Document 11/22/17 13:00 TMS (Rec: 11/22/17 16:26 TMS [email or web address]) OP-PT Subjective Patient Comments Patient Comments Pt. reports that he registered at [facility] for classes this Fall. PT-OP-Q Treatments Start: 08/19/17 08:09 Freq: Status: Active Protocol: Document 11/18/17 11:15 SAK (Rec: 11/21/17 14:17 SAK [id number]) Cardio Equipment Bicycle (Upright) Duration (Minutes) 5 Resistance 9 Seat Position 6 Other 4 rounds of 30:30 intervals Gait Training Gait Activity 7 Description step-ups on 4 box (up forward , down backward) Level of Assistance SB to min assist for balance Comments Due to mother expressing patient's difficulty when attempting step at exercise class 6 Description Gait with emphasis on symmetry Comments Patient demonstrates increased side flex to right with lack of hip extension on the right during stance due to hip extensor weakness, plantarflexor weakness, and during swing due to dorsiflexor weakness. 4 Description backward gait Level of Assistance SBA, cues Surface level Treatment Focus increased hip extension Neuro Re-Education Treatment Balance Activities 5 Details BOSU lunge Reps/Duration 10x 4 Details obstacle course Equipment foam pods, hurdles, different height boxes, balance beam Reps/Duration 15 min Comments CG to mod assist for balance PT-OP-R Modalities Start: 08/19/17 08:09 Freq: Status: Active Protocol: Document 11/18/17 11:15 SAK (Rec: 11/21/17 14:18 [facility] [id number]) Electric Stimulation Electric Stimulation Togolese Stimulation Duration (Minutes) 10 Contraction Type Normal High/Low High Cycle 10/10 Patient Position Sitting PT-OP-S Aquatic Treatment Start: 09/27/17 14:34 Freq: Status: Active Protocol: Document 11/22/17 13:00 TMS (Rec: 11/22/17 16:26 TMS [email or web address]) Aquatics Treatment Pool Entry/Exit Pool Entry/Exit Method Stairs Assistance Standby Assistance Water Walking Forwards Water Level Chest Level Level of Assistance Standby Assistance Comments Cues, with and without fins. Lower Extremity Exercises 5 Details Single leg standing Body Position Standing Water Level Chest Level 1 Details Right hip AB/AD. Body Position Standing Water Level Chest Level Lower Extremity Stretches 1 Details Gastroc stretching Body Position Standing Water Level Waist Level Comments Manual assist Upper Extremity Stretches 1 Details Horizontal AB/AD Body Position Standing Water Level Chest Level Equipment Large resistance barbells Reps/Duration x 15 reps Swim Strokes Flutter Equipment Fins Kickboard Comments Min-A Backstroke Other Equipment Used With and without fins Comments 5 minutes PT-OP-T Assessment and Plan Start: 08/19/17 08:09 Freq: Status: Active Protocol: Document 11/22/17 13:00 TMS (Rec: 11/22/17 16:26 TMS [email or web address]) Physical Therapy Assessment Assessment Summary Assessment Pt. felt awkward walking with fins on but able to do, had difficulty keeping legs up at surface for fluttering with fins on. Physical Therapy Plan Frequency and Duration Frequency of Treatment 2x/Week Duration of Treatment 3 months Plan of Care Start Date 10/21/17 Plan of Care End Date 01/21/18 Next Visit Focus/Plan Next Note Type Treatment Note Next Visit Plan Continue PT with focus on balance, strengthening, gait training, FES to ankle df.
--- NOTE | 2017-11-25 12:14 | PT.OTN ---
Current Diagnoses Spastic hemiplegia affecting right dominant side (11/25/17) Cerebral infarction due to unspecified occlusion or stenosis of left middle cerebral artery (11/25/17) Difficulty in walking, not elsewhere classified (11/25/17) Repeated falls (11/25/17) Apraxia (11/25/17) Weakness (11/25/17) Physical Therapy Treatment Note PT-OP-A Visit Information Start: 08/19/17 08:09 Freq: Status: Active Protocol: Document 11/25/17 11:15 SAK (Rec: 11/25/17 12:13 SAK [id number]) Out-Patient Physical Therapy Visit Information Visit Information Visit Type Treatment Note Visit Start Time 12:15 Visit Stop Time 13:15 Total Visit Minutes 60 Number of MATERIAL ATTENDANT Visits 1 PT-OP-C Subjective Start: 08/19/17 08:09 Freq: Status: Active Protocol: Document 11/22/17 13:00 TMS (Rec: 11/22/17 16:26 TMS [email or web address]) OP-PT Subjective Patient Comments Patient Comments Pt. reports that he registered at [facility] for classes this Fall. PT-OP-Q Treatments Start: 08/19/17 08:09 Freq: Status: Active Protocol: Document 11/25/17 11:15 SAK (Rec: 11/25/17 12:13 SAK [id number]) Gait Training Gait Activity 7 Description step-ups on 4 box (up forward , down backward) Level of Assistance SB to min assist for balance 3 Description forward/bck quick steps Device Used Metronome Level of Assistance SBA Surface level Comments Max speed 68 Neuro Re-Education Treatment Balance Activities 6 Details Fitter Reps/Duration 6 min Comments low resistance, CG to mod assist for balance with bilateral UE support 4 Details obstacle course Equipment foam pods, hurdles, different height boxes, balance beam Reps/Duration 20 min Comments CG to mod assist for balance Self-Care/Home Management Treatment Education Other Education Download metronome carlos for use at home PT-OP-R Modalities Start: 08/19/17 08:09 Freq: Status: Active Protocol: Document 11/25/17 11:15 SAK (Rec: 11/25/17 12:13 SAK [id number]) Electric Stimulation Electric Stimulation Cambodian Stimulation Duration (Minutes) 10 Contraction Type Normal High/Low High Cycle 10/10 Patient Position Sitting PT-OP-S Aquatic Treatment Start: 09/27/17 14:34 Freq: Status: Active Protocol: Document 11/22/17 13:00 TMS (Rec: 11/22/17 16:26 TMS [email or web address]) Aquatics Treatment Pool Entry/Exit Pool Entry/Exit Method Stairs Assistance Standby Assistance Water Walking Forwards Water Level Chest Level Level of Assistance Standby Assistance Comments Cues, with and without fins. Lower Extremity Exercises 5 Details Single leg standing Body Position Standing Water Level Chest Level 1 Details Right hip AB/AD. Body Position Standing Water Level Chest Level Lower Extremity Stretches 1 Details Gastroc stretching Body Position Standing Water Level Waist Level Comments Manual assist Upper Extremity Stretches 1 Details Horizontal AB/AD Body Position Standing Water Level Chest Level Equipment Large resistance barbells Reps/Duration x 15 reps Swim Strokes Flutter Equipment Fins Kickboard Comments Min-A Backstroke Other Equipment Used With and without fins Comments 5 minutes PT-OP-T Assessment and Plan Start: 08/19/17 08:09 Freq: Status: Active Protocol: Document 11/25/17 11:15 SAK (Rec: 11/25/17 12:13 SAK [id number]) Physical Therapy Assessment Goals Five Impairment strength [facility] Goal (LTG) Patient will improve his LE strength to be able to step over a 6 object independently and safely with either LE without catching foot or losing balance LTG Duration 3 months Four Impairment functional mobility Auto Design Checker Goal (LTG) Patient able to perform car transfers and floor transfers with ease, without loss of balance to improve his safety and quality of life LTG Duration 3 months Three Impairment Patient education Auto Design Checker Goal (LTG) Progress HEP, patient to be independent and compliant with updated HEP as his function continues to improve LTG Duration 3 months Two Impairment balance Auto Design Checker Goal (LTG) Improve Dynamic gait index to 19 or greater out of 24 for decreased fall risk LTG Duration 3 months One Impairment functional mobility/gait Auto Design Checker Goal (LTG) Patient to improve 6 min walk test test to 1200 feet. LTG Duration 3 months Assessment Summary Assessment Decreasing upper extremity support with obstacle course, much difficulty with fitter especially with weight-shift to right Physical Therapy Plan Frequency and Duration Frequency of Treatment 2x/Week Duration of Treatment 3 months Plan of Care Start Date 10/21/17 Plan of Care End Date 01/21/18 Therapeutic Interventions Therapeutic Interventions Aquatic Therapy Balance Training Gait Training Home Exercise Program Neuromuscular Re-education Patient/Caregiver Education Self-Care/Home Management Therapeutic Activities Therapeutic Exercises Next Visit Focus/Plan Next Note Type Treatment Note Next Visit Plan Patient to take 1 month off from PT, is going camping and doing other family activities. Then will return for continued PT.
--- NOTE | 2017-12-31 14:41 | PT.OTN ---
Current Diagnoses Spastic hemiplegia affecting right dominant side (12/31/17) Cerebral infarction due to unspecified occlusion or stenosis of left middle cerebral artery (12/31/17) Difficulty in walking, not elsewhere classified (12/31/17) Repeated falls (12/31/17) Apraxia (12/31/17) Weakness (12/31/17) Physical Therapy Treatment Note PT-OP-A Visit Information Start: 08/19/17 08:09 Freq: Status: Active Protocol: Document 12/31/17 13:33 LRN (Rec: 12/31/17 14:41 LRN [id number]) Out-Patient Physical Therapy Visit Information Visit Information Visit Type Treatment Note Visit Start Time 13:33 Visit Stop Time 14:30 Total Visit Minutes 57 Number of AUGER PRESS OPERATOR Visits 0 PT-OP-C Subjective Start: 08/19/17 08:09 Freq: Status: Active Protocol: Document 12/31/17 13:33 LRN (Rec: 12/31/17 14:41 LRN [id number]) OP-PT Subjective Patient Comments Patient Comments Walking on grass faster without a cane, at home. States the grass is bumpy. PT-OP-Q Treatments Start: 08/19/17 08:09 Freq: Status: Active Protocol: Document 12/31/17 13:33 LRN (Rec: 12/31/17 14:41 LRN [id number]) Cardio Equipment Bicycle (Upright) Duration (Minutes) 5 Resistance 9 Seat Position 6 Other 4 rounds of 30:30 intervals Gait Training Gait Activity 7 Description step-ups on 4 box (up forward , down backward) Level of Assistance SB to min assist for balance 6 Description Side step-ups on 4 steps Distance/Duration 5x each direction Comments CGA as needed Neuro Re-Education Treatment Balance Activities 6 Details Fitter Reps/Duration 8 min Comments low resistance, CG to mod assist for balance with bilateral UE support 4 Details obstacle course Equipment foam pods, hurdles, different height boxes, balance beam Reps/Duration 20 min Comments CG to mod assist for balance PT-OP-R Modalities Start: 08/19/17 08:09 Freq: Status: Active Protocol: Document 12/31/17 13:33 LRN (Rec: 12/31/17 14:41 LRN [id number]) Electric Stimulation Electric Stimulation Egyptian Stimulation Duration (Minutes) 10 Intensity 39 Contraction Type Normal High/Low High Cycle 10/10 Patient Position Sitting Comments Electrodes on R anterior tib for ankle DF PT-OP-S Aquatic Treatment Start: 09/27/17 14:34 Freq: Status: Active Protocol: Document 11/22/17 13:00 TMS (Rec: 11/22/17 16:26 TMS [email or web address]) Aquatics Treatment Pool Entry/Exit Pool Entry/Exit Method Stairs Assistance Standby Assistance Water Walking Forwards Water Level Chest Level Level of Assistance Standby Assistance Comments Cues, with and without fins. Lower Extremity Exercises 5 Details Single leg standing Body Position Standing Water Level Chest Level 1 Details Right hip AB/AD. Body Position Standing Water Level Chest Level Lower Extremity Stretches 1 Details Gastroc stretching Body Position Standing Water Level Waist Level Comments Manual assist Upper Extremity Stretches 1 Details Horizontal AB/AD Body Position Standing Water Level Chest Level Equipment Large resistance barbells Reps/Duration x 15 reps Swim Strokes Flutter Equipment Fins Kickboard Comments Min-A Backstroke Other Equipment Used With and without fins Comments 5 minutes PT-OP-T Assessment and Plan Start: 08/19/17 08:09 Freq: Status: Active Protocol: Document 12/31/17 13:33 LRN (Rec: 12/31/17 14:41 LRN [id number]) Physical Therapy Assessment Goals Five Impairment strength [place] Goal (LTG) Patient will improve his LE strength to be able to step over a 6 object independently and safely with either LE without catching foot or losing balance LTG Duration 3 months Four Impairment functional mobility [facility] Goal (LTG) Patient able to perform car transfers and floor transfers with ease, without loss of balance to improve his safety and quality of life LTG Duration 3 months Three Impairment Patient education [place] Goal (LTG) Progress HEP, patient to be independent and compliant with updated HEP as his function continues to improve LTG Duration 3 months Two Impairment balance [place]yer Goal (LTG) Improve Dynamic gait index to 19 or greater out of 24 for decreased fall risk LTG Duration 3 months One Impairment functional mobility/gait Last Sawyer Goal (LTG) Patient to improve 6 min walk test test to 1200 feet. LTG Duration 3 months Assessment Summary Assessment Pt more confident with Fitter. Added on obstacle course, BOSU to balance board stepping . Physical Therapy Plan Frequency and Duration Frequency of Treatment 2x/Week Duration of Treatment 3 months Plan of Care Start Date 10/21/17 Plan of Care End Date 01/21/18 Next Visit Focus/Plan Next Note Type Re-Evaluation Next Visit Plan Reassess needed by 01/21/18. Continue for balance, strengthening, gait training, FES for ankle DF.
--- NOTE | 2018-01-07 14:34 | PT.OTN ---
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 (Rec: 01/07/18 14:34 [facility] [id number]) Out-Patient Physical Therapy Visit Information Visit Information Visit Type Treatment Note Visit Start Time 13:45 Visit Stop Time 14:30 Total Visit Minutes 45 Number of MANAGER OF SUSTAINABILITY Visits 0 PT-OP-C Subjective Start: 08/19/17 08:09 Freq: Status: Active Protocol: Document 01/07/18 13:34 [facility] (Rec: 01/07/18 14:34 [facility] [id number]) OP-PT Subjective Patient Comments Patient Comments Pt reports his stim unit doesn 't go high enough PT-OP-Q Treatments Start: 08/19/17 08:09 Freq: Status: Active Protocol: Document 01/07/18 13:34 [facility] (Rec: 01/07/18 14:34 [facility] [id number]) Cardio Equipment Elliptical Duration (Minutes) 3 Resistance none Gym Equipment Shuttle Recovery Bilateral Squats Resistance 150 Shuttle Recovery Platform Stable Reps/Time 2x15 Gait Training Gait Activity 7 Description step-ups on 4 box (up forward , down backward) Level of Assistance SB to min assist for balance Comments side stepping on 4 in and 6 in for fwd/back Neuro Re-Education Treatment Balance Activities 5 Details BOSU lunge Reps/Duration 10x 4 Details obstacle course Equipment foam pods, hurdles, different height boxes, balance beam Reps/Duration 20 min Comments CG to mod assist for balance PT-OP-R Modalities Start: 08/19/17 08:09 Freq: Status: Active Protocol: Document 12/31/17 13:33 LRN (Rec: 12/31/17 14:41 [facility]N [id number]) Electric Stimulation Electric Stimulation Mauritanian Stimulation Duration (Minutes) 10 Intensity 39 Contraction Type Normal High/Low High Cycle 10/10 Patient Position Sitting Comments Electrodes on R anterior tib for ankle DF PT-OP-S Aquatic Treatment Start: 09/27/17 14:34 Freq: Status: Active Protocol: Document 11/22/17 13:00 TMS (Rec: 11/22/17 16:26 TMS [id number]) Aquatics Treatment Pool Entry/Exit Pool Entry/Exit Method Stairs Assistance Standby Assistance Water Walking Forwards Water Level Chest Level Level of Assistance Standby Assistance Comments Cues, with and without fins. Lower Extremity Exercises 5 Details Single leg standing Body Position Standing Water Level Chest Level 1 Details Right hip AB/AD. Body Position Standing Water Level Chest Level Lower Extremity Stretches 1 Details Gastroc stretching Body Position Standing Water Level Waist Level Comments Manual assist Upper Extremity Stretches 1 Details Horizontal AB/AD Body Position Standing Water Level Chest Level Equipment Large resistance barbells Reps/Duration x 15 reps Swim Strokes Flutter Equipment Fins Kickboard Comments Min-A Backstroke Other Equipment Used With and without fins Comments 5 minutes PT-OP-T Assessment and Plan Start: 08/19/17 08:09 Freq: Status: Active Protocol: Document 01/07/18 13:34 [facility] (Rec: 01/07/18 14:34 [facility] [id number]) Physical Therapy Assessment Goals Five Impairment strength Breastfeeding Program Coordinator Goal (LTG) Patient will improve his LE strength to be able to step over a 6 object independently and safely with either LE without catching foot or losing balance LTG Duration 3 months Four Impairment functional mobility Skilled Nursing Goal (LTG) Patient able to perform car transfers and floor transfers with ease, without loss of balance to improve his safety and quality of life LTG Duration 3 months Three Impairment Patient education Skilled Nursing Goal (LTG) Progress HEP, patient to be independent and compliant with updated HEP as his function continues to improve LTG Duration 3 months Two Impairment balance Breastfeeding Program Coordinator Goal (LTG) Improve Dynamic gait index to 19 or greater out of 24 for decreased fall risk LTG Duration 3 months One Impairment functional mobility/gait Skilled Nursing Goal (LTG) Patient to improve 6 min walk test test to 1200 feet. LTG Duration 3 months Assessment Summary Assessment Pt with significant difficulty with obstacle course and with bosu lunges. He was challenged by elliptical and fatigued quickly. Physical Therapy Plan Frequency and Duration Frequency of Treatment 2x/Week Duration of Treatment 3 months Plan of Care Start Date 10/21/17 Plan of Care End Date 01/21/18 Next Visit Focus/Plan Next Note Type Progress Note Next Visit Plan Reassess needed by 01/21/18. Continue for balance, strengthening, gait training,
--- NOTE | 2018-01-14 14:33 | PT.OTN ---
Current Diagnoses Spastic hemiplegia affecting right dominant side (01/14/18) Cerebral infarction due to unspecified occlusion or stenosis of left middle cerebral artery (01/14/18) Difficulty in walking, not elsewhere classified (01/14/18) Repeated falls (01/14/18) Apraxia (01/14/18) Weakness (01/14/18) Physical Therapy Treatment Note PT-OP-A Visit Information Start: 08/19/17 08:09 Freq: Status: Active Protocol: Document 01/14/18 13:45 DCW (Rec: 01/14/18 14:32 DCW [id number]) Out-Patient Physical Therapy Visit Information Visit Information Visit Type Treatment Note Visit Start Time 13:45 Visit Stop Time 14:30 Total Visit Minutes 45 Number of PHYSICIAN'S ASSISTANT Visits 0 PT-OP-C Subjective Start: 08/19/17 08:09 Freq: Status: Active Protocol: Document 01/14/18 13:45 DCW (Rec: 01/14/18 14:32 DCW [id number]) OP-PT Subjective Patient Comments Patient Comments Pt reports he has started his classes at [facility], notes they are going well so far. PT-OP-Q Treatments Start: 08/19/17 08:09 Freq: Status: Active Protocol: Document 01/14/18 13:45 DCW (Rec: 01/14/18 14:32 DCW [id number]) Cardio Equipment Elliptical Duration (Minutes) 3 Resistance none Gym Equipment Shuttle Recovery Bilateral Squats Resistance 150 Shuttle Recovery Platform Stable Reps/Time 2x15 Neuro Re-Education Treatment Balance Activities 7 Details SLS Comments Slow knee raise on left 6 Details Fitter Reps/Duration 4 min Comments low resistance, CG to mod assist for balance with bilateral UE support 4 Details obstacle course Equipment foam pods, hurdles, different height boxes, balance beam Reps/Duration 20 min Comments CG to mod assist for balance Other Activities 1 Details Side-stepping over bolster PT-OP-R Modalities Start: 08/19/17 08:09 Freq: Status: Active Protocol: Document 12/31/17 13:33 LRN (Rec: 12/31/17 14:41 LRN [id number]) Electric Stimulation Electric Stimulation Armenian Stimulation Duration (Minutes) 10 Intensity 39 Contraction Type Normal High/Low High Cycle 10/10 Patient Position Sitting Comments Electrodes on R anterior tib for ankle DF PT-OP-S Aquatic Treatment Start: 09/27/17 14:34 Freq: Status: Active Protocol: Document 11/22/17 13:00 TMS (Rec: 11/22/17 16:26 TMS [id number]) Aquatics Treatment Pool Entry/Exit Pool Entry/Exit Method Stairs Assistance Standby Assistance Water Walking Forwards Water Level Chest Level Level of Assistance Standby Assistance Comments Cues, with and without fins. Lower Extremity Exercises 5 Details Single leg standing Body Position Standing Water Level Chest Level 1 Details Right hip AB/AD. Body Position Standing Water Level Chest Level Lower Extremity Stretches 1 Details Gastroc stretching Body Position Standing Water Level Waist Level Comments Manual assist Upper Extremity Stretches 1 Details Horizontal AB/AD Body Position Standing Water Level Chest Level Equipment Large resistance barbells Reps/Duration x 15 reps Swim Strokes Flutter Equipment Fins Kickboard Comments Min-A Backstroke Other Equipment Used With and without fins Comments 5 minutes PT-OP-T Assessment and Plan Start: 08/19/17 08:09 Freq: Status: Active Protocol: Document 01/14/18 13:45 DCW (Rec: 01/14/18 14:32 DCW [id number]) Physical Therapy Assessment Goals Five Impairment strength Usp Goal (LTG) Patient will improve his LE strength to be able to step over a 6 object independently and safely with either LE without catching foot or losing balance LTG Duration 3 months Four Impairment functional mobility Cable Coverer Goal (LTG) Patient able to perform car transfers and floor transfers with ease, without loss of balance to improve his safety and quality of life LTG Duration 3 months Three Impairment Patient education Cable Coverer Goal (LTG) Progress HEP, patient to be independent and compliant with updated HEP as his function continues to improve LTG Duration 3 months Two Impairment balance Cable Coverer Goal (LTG) Improve Dynamic gait index to 19 or greater out of 24 for decreased fall risk LTG Duration 3 months One Impairment functional mobility/gait Cable Coverer Goal (LTG) Patient to improve 6 min walk test test to 1200 feet. LTG Duration 3 months Assessment Summary Assessment Pt performed better today with the obstacle course, able to do much of it without hand- hold assist Physical Therapy Plan Frequency and Duration Frequency of Treatment 2x/Week Duration of Treatment 3 months Plan of Care Start Date 10/21/17 Plan of Care End Date 01/21/18 Next Visit Focus/Plan Next Note Type Progress Note Next Visit Plan Reassess needed by 01/21/18. Continue for balance, strengthening, gait training,
--- NOTE | 2018-01-21 14:54 | PT.OTN ---
Current Diagnoses Spastic hemiplegia affecting right dominant side (01/21/18) Cerebral infarction due to unspecified occlusion or stenosis of left middle cerebral artery (01/21/18) Difficulty in walking, not elsewhere classified (01/21/18) Repeated falls (01/21/18) Apraxia (01/21/18) Weakness (01/21/18) Physical Therapy Treatment Note PT-OP-A Visit Information Start: 08/19/17 08:09 Freq: Status: Active Protocol: Document 01/21/18 13:45 DCW (Rec: 01/21/18 14:54 DCW [id number]) Out-Patient Physical Therapy Visit Information Visit Information Visit Type Progress Note Visit Start Time 13:45 Visit Stop Time 14:30 Total Visit Minutes 45 Number of BRAKE RELINER Visits 0 PT-OP-C Subjective Start: 08/19/17 08:09 Freq: Status: Active Protocol: Document 01/21/18 13:45 DCW (Rec: 01/21/18 14:54 DCW [id number]) OP-PT Subjective Patient Comments Patient Comments Pt doing well today, interested to see if he has been making progress with reassessment today PT-OP-E Functional Tests Start: 01/21/18 14:41 Freq: Status: Active Protocol: Document 01/21/18 13:45 DCW (Rec: 01/21/18 14:44 DCW [id number]) Functional Tests 6 Minute Walk Test Distance 918 Device Used AFO Dynamic Gait Index (DGI) Score 15/24 DGI Impairment Rating 20 to <40% Impaired (Score 15- 19) PT-OP-G Mobility & Gait Start: 01/21/18 14:41 Freq: Status: Active Protocol: Document 01/21/18 13:45 DCW (Rec: 01/21/18 14:44 DCW [id number]) OP Mobility Evaluation Transfers Floor Transfers Modified independent with SPC Functional Movements Other Functional Movements Stepping over 6 object: Independent leading with both left or right foot PT-OP-Q Treatments Start: 08/19/17 08:09 Freq: Status: Active Protocol: Document 01/21/18 13:45 DCW (Rec: 01/21/18 14:54 DCW [id number]) Gym Equipment Shuttle Balance Red Details Wide DONNA, Staggered Stance Comments EO/EC, Vertical head turns, vs perturbation Therapeutic Activity Therapeutic Activity Testing Comments Step-over object, floor transfers, 6 MWT Neuro Re-Education Treatment Other Activities Testing Comments DGI PT-OP-T Assessment and Plan Start: 08/19/17 08:09 Freq: Status: Active Protocol: Document 01/21/18 13:45 DCW (Rec: 01/21/18 14:54 DCW [id number]) Physical Therapy Assessment Impairments Impairments Balance Functional Activities Functional Mobility Gait Strength Tone Goals Five Impairment strength Pan Operator Goal (LTG) Patient will improve his LE strength to be able to step over a 6 object independently and safely with either LE without catching foot or losing balance LTG Duration MET Four Impairment functional mobility Mcfp Goal (LTG) Patient able to perform car transfers and floor transfers with ease, without loss of balance to improve his safety and quality of life LTG Duration MET Three Impairment Patient education Pan Operator Goal (LTG) Progress HEP, patient to be independent and compliant with updated HEP as his function continues to improve LTG Duration 04/23/18 Two Impairment balance Pan Operator Goal (LTG) Improve Dynamic gait index to 19 or greater out of 24 for decreased fall risk LTG Duration 04/23/18 - Improving One Impairment functional mobility/gait Mcfp Goal (LTG) Patient to improve 6 min walk test test to 1200 feet. LTG Duration 04/23/18 Progress Towards Goals Progress Towards Goals Progressing Toward Goals Slow Progress due to Medical Issues Assessment Summary Assessment Pt made progress in the DGI, improving from 13 ->15, and demonstrated ability to independently step over 6 object and transfer floor-> standing. Pt did not show any improvement with 6 MWT. Continued skilled therapy should help improve activity tolerance, strength, gait and balance ability, and decreased burden of care Physical Therapy Plan Frequency and Duration Frequency of Treatment 2x/Week Duration of Treatment 3 months Plan of Care Start Date 01/21/18 Plan of Care End Date 04/23/18 Therapeutic Interventions Therapeutic Interventions Aquatic Therapy Balance Training Gait Training Home Exercise Program Neuromuscular Re-education Patient/Caregiver Education Self-Care/Home Management Therapeutic Activities Therapeutic Exercises Next Visit Focus/Plan Next Note Type Treatment Note Next Visit Plan Continue for balance, strengthening, gait training
--- NOTE | 2018-01-21 14:55 | PT.OPPOC ---
Current Diagnoses Spastic hemiplegia affecting right dominant side (01/21/18) Cerebral infarction due to unspecified occlusion or stenosis of left middle cerebral artery (01/21/18) Difficulty in walking, not elsewhere classified (01/21/18) Repeated falls (01/21/18) Apraxia (01/21/18) Weakness (01/21/18) Provider Visit Care Team Role Provider Type Halina Olmstead MD Family Provider Physician Primary Care Provider Specialty: Medical Address: [address] [place] [address], [phone] Email: Marietta Lawler Attending Provider Non-Staff Specialty: Medical Address: [address] [place] [address], [phone] Email: Plan Of Care PT-OP-T Assessment and Plan Start: 08/19/17 08:09 Freq: Status: Active Protocol: Document 01/21/18 13:45 DCW (Rec: 01/21/18 14:54 DCW [id number]) Physical Therapy Assessment Impairments Impairments Balance Functional Activities Functional Mobility Gait Strength Tone Goals Five Impairment strength Nursing Home Goal (LTG) Patient will improve his LE strength to be able to step over a 6 object independently and safely with either LE without catching foot or losing balance LTG Duration MET Four Impairment functional mobility Nursing Home Goal (LTG) Patient able to perform car transfers and floor transfers with ease, without loss of balance to improve his safety and quality of life LTG Duration MET Three Impairment Patient education Nursing Home Goal (LTG) Progress HEP, patient to be independent and compliant with updated HEP as his function continues to improve LTG Duration 04/23/18 Two Impairment balance Nursing Program Chair Goal (LTG) Improve Dynamic gait index to 19 or greater out of 24 for decreased fall risk LTG Duration 04/23/18 - Improving One Impairment functional mobility/gait Nursing Program Chair Goal (LTG) Patient to improve 6 min walk test test to 1200 feet. LTG Duration 04/23/18 Progress Towards Goals Progress Towards Goals Progressing Toward Goals Slow Progress due to Medical Issues Assessment Summary Assessment Pt made progress in the DGI, improving from 13 ->15, and demonstrated ability to independently step over 6 object and transfer floor-> standing. Pt did not show any improvement with 6 MWT. Continued skilled therapy should help improve activity tolerance, strength, gait and balance ability, and decreased burden of care Physical Therapy Plan Frequency and Duration Frequency of Treatment 2x/Week Duration of Treatment 3 months Plan of Care Start Date 01/21/18 Plan of Care End Date 04/23/18 Therapeutic Interventions Therapeutic Interventions Aquatic Therapy Balance Training Gait Training Home Exercise Program Neuromuscular Re-education Patient/Caregiver Education Self-Care/Home Management Therapeutic Activities Therapeutic Exercises Next Visit Focus/Plan Next Note Type Treatment Note Next Visit Plan Continue for balance, strengthening, gait training Plan of Care Dates Plan of Care Start Date 01/21/18 Plan of Care End Date 04/23/18 Please Sign and Return: I have reviewed this Plan of Care and certify that the skilled therapy services above are required to meet the patient?s needs. Physician Signature Date Printed Name and Credentials Clinical Instructor Signature Printed Name and Credentials
--- NOTE | 2018-01-28 14:32 | PT.OTN ---
Current Diagnoses Spastic hemiplegia affecting right dominant side (01/28/18) Cerebral infarction due to unspecified occlusion or stenosis of left middle cerebral artery (01/28/18) Difficulty in walking, not elsewhere classified (01/28/18) Repeated falls (01/28/18) Apraxia (01/28/18) Weakness (01/28/18) Physical Therapy Treatment Note PT-OP-A Visit Information Start: 08/19/17 08:09 Freq: Status: Active Protocol: Document 01/28/18 13:50 DCW (Rec: 01/28/18 14:32 DCW [id number]) Out-Patient Physical Therapy Visit Information Visit Information Visit Type Treatment Note Visit Start Time 13:50 Visit Stop Time 14:30 Total Visit Minutes 40 Number of ICE CRUSHER Visits 0 PT-OP-C Subjective Start: 08/19/17 08:09 Freq: Status: Active Protocol: Document 01/28/18 13:50 DCW (Rec: 01/28/18 14:32 DCW [id number]) OP-PT Subjective Patient Comments Patient Comments Pt notes that he is wearing his winter boots today to get used to them before the weather worsens. Admits that he loves how sturdy the boots make me. PT-OP-E Functional Tests Start: 01/21/18 14:41 Freq: Status: Active Protocol: Document 01/21/18 13:45 DCW (Rec: 01/21/18 14:44 DCW [id number]) Functional Tests 6 Minute Walk Test Distance 918 Device Used AFO Dynamic Gait Index (DGI) Score 15/24 DGI Impairment Rating 20 to <40% Impaired (Score 15- 19) PT-OP-G Mobility & Gait Start: 01/21/18 14:41 Freq: Status: Active Protocol: Document 01/21/18 13:45 DCW (Rec: 01/21/18 14:44 DCW [id number]) OP Mobility Evaluation Transfers Floor Transfers Modified independent with SPC Functional Movements Other Functional Movements Stepping over 6 object: Independent leading with both left or right foot PT-OP-Q Treatments Start: 08/19/17 08:09 Freq: Status: Active Protocol: Document 01/28/18 13:50 DCW (Rec: 01/28/18 14:32 DCW [id number]) Cardio Equipment Elliptical Duration (Minutes) 5 Resistance none Gym Equipment Shuttle Balance Black Details Uneven (5) turns Neuro Re-Education Treatment Coordination Activities Step to target Details Stepping to numberd targets on floor PT-OP-R Modalities Start: 08/19/17 08:09 Freq: Status: Active Protocol: Document 12/31/17 13:33 LRN (Rec: 12/31/17 14:41 LRN [id number]) Electric Stimulation Electric Stimulation Hungarian Stimulation Duration (Minutes) 10 Intensity 39 Contraction Type Normal High/Low High Cycle 10/10 Patient Position Sitting Comments Electrodes on R anterior tib for ankle DF PT-OP-S Aquatic Treatment Start: 09/27/17 14:34 Freq: Status: Active Protocol: Document 11/22/17 13:00 TMS (Rec: 11/22/17 16:26 TMS [email or web address]) Aquatics Treatment Pool Entry/Exit Pool Entry/Exit Method Stairs Assistance Standby Assistance Water Walking Forwards Water Level Chest Level Level of Assistance Standby Assistance Comments Cues, with and without fins. Lower Extremity Exercises 5 Details Single leg standing Body Position Standing Water Level Chest Level 1 Details Right hip AB/AD. Body Position Standing Water Level Chest Level Lower Extremity Stretches 1 Details Gastroc stretching Body Position Standing Water Level Waist Level Comments Manual assist Upper Extremity Stretches 1 Details Horizontal AB/AD Body Position Standing Water Level Chest Level Equipment Large resistance barbells Reps/Duration x 15 reps Swim Strokes Flutter Equipment Fins Kickboard Comments Min-A Backstroke Other Equipment Used With and without fins Comments 5 minutes PT-OP-T Assessment and Plan Start: 08/19/17 08:09 Freq: Status: Active Protocol: Document 01/28/18 13:50 DCW (Rec: 01/28/18 14:32 DCW [id number]) Physical Therapy Assessment Impairments Impairments Balance Functional Activities Functional Mobility Gait Strength Tone Goals Five Impairment strength Military Lawyer Goal (LTG) Patient will improve his LE strength to be able to step over a 6 object independently and safely with either LE without catching foot or losing balance LTG Duration MET Four Impairment functional mobility Military Lawyer Goal (LTG) Patient able to perform car transfers and floor transfers with ease, without loss of balance to improve his safety and quality of life LTG Duration MET Three Impairment Patient education Military Lawyer Goal (LTG) Progress HEP, patient to be independent and compliant with updated HEP as his function continues to improve LTG Duration 04/23/18 Two Impairment balance Military Lawyer Goal (LTG) Improve Dynamic gait index to 19 or greater out of 24 for decreased fall risk LTG Duration 04/23/18 - Improving One Impairment functional mobility/gait Military Lawyer Goal (LTG) Patient to improve 6 min walk test test to 1200 feet. LTG Duration 04/23/18 Progress Towards Goals Progress Towards Goals Progressing Toward Goals Slow Progress due to Medical Issues Assessment Summary Assessment Pt struggled with uneven Shuttle Balance, should continue to work on targeting foot placement Physical Therapy Plan Frequency and Duration Frequency of Treatment 2x/Week Duration of Treatment 3 months Plan of Care Start Date 01/21/18 Plan of Care End Date 04/23/18 Therapeutic Interventions Therapeutic Interventions Aquatic Therapy Balance Training Gait Training Home Exercise Program Neuromuscular Re-education Patient/Caregiver Education Self-Care/Home Management Therapeutic Activities Therapeutic Exercises Next Visit Focus/Plan Next Note Type Treatment Note Next Visit Plan Continue for balance, strengthening, gait training
--- NOTE | 2018-02-04 14:50 | PT.OTN ---
Current Diagnoses Spastic hemiplegia affecting right dominant side (02/04/18) Cerebral infarction due to unspecified occlusion or stenosis of left middle cerebral artery (02/04/18) Difficulty in walking, not elsewhere classified (02/04/18) Repeated falls (02/04/18) Apraxia (02/04/18) Weakness (02/04/18) Physical Therapy Treatment Note PT-OP-A Visit Information Start: 08/19/17 08:09 Freq: Status: Active Protocol: Document 02/04/18 13:43 LR (Rec: 02/04/18 14:50 [facility] [id number]) Out-Patient Physical Therapy Visit Information Visit Information Visit Type Treatment Note Visit Start Time 13:45 Visit Stop Time 14:30 Total Visit Minutes 45 Number of AIRBORNE OPERATIONS MANAGER Visits 0 PT-OP-C Subjective Start: 08/19/17 08:09 Freq: Status: Active Protocol: Document 02/04/18 13:43 [facility] (Rec: 02/04/18 14:50 [facility] [id number]) OP-PT Subjective Patient Comments Patient Comments Reports R ankle has been a little sore recently especially when he leans when he is walking. Reports he is motivated to work on stairs because he feels like that is why he has to have a cane. PT-OP-E Functional Tests Start: 01/21/18 14:41 Freq: Status: Active Protocol: Document 01/21/18 13:45 DCW (Rec: 01/21/18 14:44 DCW [id number]) Functional Tests 6 Minute Walk Test Distance 918 Device Used AFO Dynamic Gait Index (DGI) Score 15/24 DGI Impairment Rating 20 to <40% Impaired (Score 15- 19) PT-OP-G Mobility & Gait Start: 01/21/18 14:41 Freq: Status: Active Protocol: Document 01/21/18 13:45 DCW (Rec: 01/21/18 14:44 DCW [id number]) OP Mobility Evaluation Transfers Floor Transfers Modified independent with SPC Functional Movements Other Functional Movements Stepping over 6 object: Independent leading with both left or right foot PT-OP-Q Treatments Start: 08/19/17 08:09 Freq: Status: Active Protocol: Document 02/04/18 13:43 [facility] (Rec: 02/04/18 14:50 [facility] [id number]) Cardio Equipment Elliptical Duration (Minutes) 5 Resistance none Gym Equipment Shuttle Balance Black Details Uneven (5) turns Comments 2 each directions Therapeutic Exercises Standing Exercises single leg squats Standing Exercise Name in mirror then by counter Gait Training Gait Activity 6 Description up/down 4in steps no rail Neuro Re-Education Treatment Balance Activities balance beams Details heel to toe on balance beams PT-OP-R Modalities Start: 08/19/17 08:09 Freq: Status: Active Protocol: Document 12/31/17 13:33 LRN (Rec: 12/31/17 14:41 [facility] [id number]) Electric Stimulation Electric Stimulation [place]ese Stimulation Duration (Minutes) 10 Intensity 39 Contraction Type Normal High/Low High Cycle 10/10 Patient Position Sitting Comments Electrodes on R anterior tib for ankle DF PT-OP-S Aquatic Treatment Start: 09/27/17 14:34 Freq: Status: Active Protocol: Document 11/22/17 13:00 TMS (Rec: 11/22/17 16:26 TMS [email or web address]) Aquatics Treatment Pool Entry/Exit Pool Entry/Exit Method Stairs Assistance Standby Assistance Water Walking Forwards Water Level Chest Level Level of Assistance Standby Assistance Comments Cues, with and without fins. Lower Extremity Exercises 5 Details Single leg standing Body Position Standing Water Level Chest Level 1 Details Right hip AB/AD. Body Position Standing Water Level Chest Level Lower Extremity Stretches 1 Details Gastroc stretching Body Position Standing Water Level Waist Level Comments Manual assist Upper Extremity Stretches 1 Details Horizontal AB/AD Body Position Standing Water Level Chest Level Equipment Large resistance barbells Reps/Duration x 15 reps Swim Strokes Flutter Equipment Fins Kickboard Comments Min-A Backstroke Other Equipment Used With and without fins Comments 5 minutes PT-OP-T Assessment and Plan Start: 08/19/17 08:09 Freq: Status: Active Protocol: Document 02/04/18 13:43 [facility] (Rec: 02/04/18 14:50 [facility] [id number]) Physical Therapy Assessment Goals Five Impairment strength Production Solderer Goal (LTG) Patient will improve his LE strength to be able to step over a 6 object independently and safely with either LE without catching foot or losing balance LTG Duration MET Four Impairment functional mobility Production Solderer Goal (LTG) Patient able to perform car transfers and floor transfers with ease, without loss of balance to improve his safety and quality of life LTG Duration MET Three Impairment Patient education Production Solderer Goal (LTG) Progress HEP, patient to be independent and compliant with updated HEP as his function continues to improve LTG Duration 04/23/18 Two Impairment balance Halfway Goal (LTG) Improve Dynamic gait index to 19 or greater out of 24 for decreased fall risk LTG Duration 04/23/18 - Improving One Impairment functional mobility/gait Production Solderer Goal (LTG) Patient to improve 6 min walk test test to 1200 feet. LTG Duration 04/23/18 Assessment Summary Assessment Pt cont to have difficulty with stairs but did well with bosu step ups which he was able to do with min rail use. He reported fatigue at end of session. Physical Therapy Plan Frequency and Duration Frequency of Treatment 2x/Week Duration of Treatment 3 months Plan of Care Start Date 01/21/18 Plan of Care End Date 04/23/18 Next Visit Focus/Plan Next Note Type Treatment Note Next Visit Plan Continue for balance, strengthening, gait training & advance unstable surfaces
--- NOTE | 2018-02-11 14:30 | PT.OTN ---
Current Diagnoses Spastic hemiplegia affecting right dominant side (02/11/18) Cerebral infarction due to unspecified occlusion or stenosis of left middle cerebral artery (02/11/18) Difficulty in walking, not elsewhere classified (02/11/18) Repeated falls (02/11/18) Apraxia (02/11/18) Weakness (02/11/18) Physical Therapy Treatment Note PT-OP-A Visit Information Start: 08/19/17 08:09 Freq: Status: Active Protocol: Document 02/11/18 14:30 RCC (Rec: 02/12/18 13:43 RCC [email or web address]) Out-Patient Physical Therapy Visit Information Visit Information Visit Type Treatment Note Visit Start Time 13:50 Visit Stop Time 14:30 Total Visit Minutes 40 Number of GAME TRAPPER Visits 0 PT-OP-C Subjective Start: 08/19/17 08:09 Freq: Status: Active Protocol: Document 02/11/18 14:30 RCC (Rec: 02/12/18 13:43 RCC [email or web address]) OP-PT Subjective Patient Comments Patient Comments Pt states that R ankle is more painful today than last week. He is not able to do his squatting exercise at home due to pain. Pain is around the joint, medial and anteriorly. PT-OP-E Functional Tests Start: 01/21/18 14:41 Freq: Status: Active Protocol: Document 01/21/18 13:45 DCW (Rec: 01/21/18 14:44 DCW [id number]) Functional Tests 6 Minute Walk Test Distance 918 Device Used AFO Dynamic Gait Index (DGI) Score 15/24 DGI Impairment Rating 20 to <40% Impaired (Score 15- 19) PT-OP-F Manual Assessment Start: 02/12/18 13:26 Freq: Status: Active Protocol: Document 02/11/18 14:30 RCC (Rec: 02/12/18 13:43 RCC [email or web address]) Manual Assessments Joint Mobility Assessment Joint Mobility Assessment hypomobile talocrural joint- posterior glide of talus. PT-OP-G Mobility & Gait Start: 01/21/18 14:41 Freq: Status: Active Protocol: Document 01/21/18 13:45 DCW (Rec: 01/21/18 14:44 DCW [id number]) OP Mobility Evaluation Transfers Floor Transfers Modified independent with SPC Functional Movements Other Functional Movements Stepping over 6 object: Independent leading with both left or right foot PT-OP-Q Treatments Start: 08/19/17 08:09 Freq: Status: Active Protocol: Document 02/11/18 14:30 RCC (Rec: 02/12/18 13:43 RCC [email or web address]) Therapeutic Exercises Supine Exercises SLR- hip flexion Side right Resistance 0 lbs Reps/Minutes 10 Comments VC for quad set prior Sidelying Exercises hip abduction Sidelying Exercise Name hip abduction Side right Resistance 0 lbs Reps/Minutes 5 Comments fatigue Manual Therapy Treatment Joint Mobilizations talocrural joint Joint R talocrural joint Direction A/P Grade II Body Position Supine Comments static and MWM/muscle activation into DF with light traction Other Other Manual Treatments manual stretching of gastroc/ soleus, AAROM in all planes R aknle PT-OP-R Modalities Start: 08/19/17 08:09 Freq: Status: Active Protocol: Document 12/31/17 13:33 LRN (Rec: 12/31/17 14:41 LRN [id number]) Electric Stimulation Electric Stimulation Chadian Stimulation Duration (Minutes) 10 Intensity 39 Contraction Type Normal High/Low High Cycle 10/10 Patient Position Sitting Comments Electrodes on R anterior tib for ankle DF PT-OP-S Aquatic Treatment Start: 09/27/17 14:34 Freq: Status: Active Protocol: Document 11/22/17 13:00 TMS (Rec: 11/22/17 16:26 TMS [email or web address]) Aquatics Treatment Pool Entry/Exit Pool Entry/Exit Method Stairs Assistance Standby Assistance Water Walking Forwards Water Level Chest Level Level of Assistance Standby Assistance Comments Cues, with and without fins. Lower Extremity Exercises 5 Details Single leg standing Body Position Standing Water Level Chest Level 1 Details Right hip AB/AD. Body Position Standing Water Level Chest Level Lower Extremity Stretches 1 Details Gastroc stretching Body Position Standing Water Level Waist Level Comments Manual assist Upper Extremity Stretches 1 Details Horizontal AB/AD Body Position Standing Water Level Chest Level Equipment Large resistance barbells Reps/Duration x 15 reps Swim Strokes Flutter Equipment Fins Kickboard Comments Min-A Backstroke Other Equipment Used With and without fins Comments 5 minutes PT-OP-T Assessment and Plan Start: 08/19/17 08:09 Freq: Status: Active Protocol: Document 02/11/18 14:30 RCC (Rec: 02/12/18 13:43 RCC [email or web address]) Physical Therapy Assessment Assessment Summary Assessment Pt not tolerating WB well today. He presented with stiffness of the R talocrural joint, but pain decreased after joint mobilizations today and open chain activity. Pt had OT after this session, not enough time to perform Ch[place] stimulation today. Pt was ambulation with less discomfort after manual therapy, recommended to perform SL hip abduction and supine SLR hip flexion for the next week. Physical Therapy Plan Frequency and Duration Frequency of Treatment 2x/Week Duration of Treatment 3 months Plan of Care Start Date 01/21/18 Plan of Care End Date 04/23/18 Next Visit Focus/Plan Next Note Type Treatment Note Next Visit Plan assess R ankle tolerance to this treatment, prog. as tolerated with R ankle stability/mobility and gait toward unstable surfaces
--- NOTE | 2018-02-18 14:32 | PT.OTN ---
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 (02/18/18) Difficulty in walking, not elsewhere classified (02/18/18) Repeated falls (02/18/18) Apraxia (02/18/18) Weakness (02/18/18) Physical Therapy Treatment Note PT-OP-A Visit Information Start: 08/19/17 08:09 Freq: Status: Active Protocol: Document 02/18/18 13:45 DCW (Rec: 02/18/18 14:32 DCW [id number]) Out-Patient Physical Therapy Visit Information Visit Information Visit Type Treatment Note Visit Start Time 13:45 Visit Stop Time 14:30 Total Visit Minutes 45 Number of PREVENTIVE MAINTENANCE COORDINATOR Visits 0 PT-OP-C Subjective Start: 08/19/17 08:09 Freq: Status: Active Protocol: Document 02/18/18 13:45 DCW (Rec: 02/18/18 14:32 DCW [id number]) OP-PT Subjective Patient Comments Patient Comments Pt reports his ankle is a little better today, he has been paying closer attention to how his foot moves while he is walking. Pt also brought his NMES device, he is unsure why, but thinks that his mother wants to see if it can be turned up higher to get increased anterior tib contraction. PT-OP-E Functional Tests Start: 01/21/18 14:41 Freq: Status: Active Protocol: Document 01/21/18 13:45 DCW (Rec: 01/21/18 14:44 DCW [id number]) Functional Tests 6 Minute Walk Test Distance 918 Device Used AFO Dynamic Gait Index (DGI) Score 15/24 DGI Impairment Rating 20 to <40% Impaired (Score 15- 19) PT-OP-F Manual Assessment Start: 02/12/18 13:26 Freq: Status: Active Protocol: Document 02/11/18 14:30 RCC (Rec: 02/12/18 13:43 RCC [email or web address]) Manual Assessments Joint Mobility Assessment Joint Mobility Assessment hypomobile talocrural joint- posterior glide of talus. PT-OP-G Mobility & Gait Start: 01/21/18 14:41 Freq: Status: Active Protocol: Document 01/21/18 13:45 DCW (Rec: 01/21/18 14:44 DCW [id number]) OP Mobility Evaluation Transfers Floor Transfers Modified independent with SPC Functional Movements Other Functional Movements Stepping over 6 object: Independent leading with both left or right foot PT-OP-Q Treatments Start: 08/19/17 08:09 Freq: Status: Active Protocol: Document 02/18/18 13:45 DCW (Rec: 02/18/18 14:32 DCW [id number]) Cardio Equipment Elliptical Duration (Minutes) 5 Resistance none Gym Equipment Shuttle Balance Black Details Uneven (5) Comments Turns, Perturbations, Eyes closed. Manual Therapy Treatment Joint Mobilizations talocrural joint Joint R talocrural joint Direction A/P Grade II Body Position Supine Comments static and MWM/muscle activation into DF with light traction Other Other Manual Treatments manual stretching of gastroc/ soleus, AAROM in all planes R aknle PT-OP-R Modalities Start: 08/19/17 08:09 Freq: Status: Active Protocol: Document 12/31/17 13:33 LRN (Rec: 12/31/17 14:41 LRN [id number]) Electric Stimulation Electric Stimulation [place] Stimulation Duration (Minutes) 10 Intensity 39 Contraction Type Normal High/Low High Cycle 10/10 Patient Position Sitting Comments Electrodes on R anterior tib for ankle DF PT-OP-S Aquatic Treatment Start: 09/27/17 14:34 Freq: Status: Active Protocol: Document 11/22/17 13:00 TMS (Rec: 11/22/17 16:26 TMS [email or web address]) Aquatics Treatment Pool Entry/Exit Pool Entry/Exit Method Stairs Assistance Standby Assistance Water Walking Forwards Water Level Chest Level Level of Assistance Standby Assistance Comments Cues, with and without fins. Lower Extremity Exercises 5 Details Single leg standing Body Position Standing Water Level Chest Level 1 Details Right hip AB/AD. Body Position Standing Water Level Chest Level Lower Extremity Stretches 1 Details Gastroc stretching Body Position Standing Water Level Waist Level Comments Manual assist Upper Extremity Stretches 1 Details Horizontal AB/AD Body Position Standing Water Level Chest Level Equipment Large resistance barbells Reps/Duration x 15 reps Swim Strokes Flutter Equipment Fins Kickboard Comments Min-A Backstroke Other Equipment Used With and without fins Comments 5 minutes PT-OP-T Assessment and Plan Start: 08/19/17 08:09 Freq: Status: Active Protocol: Document 02/18/18 13:45 DCW (Rec: 02/18/18 14:32 DCW [id number]) Physical Therapy Assessment Impairments Impairments Balance Functional Activities Functional Mobility Gait Strength Tone Goals Five Impairment strength Correction Goal (LTG) Patient will improve his LE strength to be able to step over a 6 object independently and safely with either LE without catching foot or losing balance LTG Duration MET Four Impairment functional mobility Patient Intake Coordinator Goal (LTG) Patient able to perform car transfers and floor transfers with ease, without loss of balance to improve his safety and quality of life LTG Duration MET Three Impairment Patient education Correction Goal (LTG) Progress HEP, patient to be independent and compliant with updated HEP as his function continues to improve LTG Duration 04/23/18 Two Impairment balance Correction Goal (LTG) Improve Dynamic gait index to 19 or greater out of 24 for decreased fall risk LTG Duration 04/23/18 - Improving One Impairment functional mobility/gait Correction Goal (LTG) Patient to improve 6 min walk test test to 1200 feet. LTG Duration 04/23/18 Progress Towards Goals Progress Towards Goals Progressing Toward Goals Slow Progress due to Medical Issues Assessment Summary Assessment Pt began treatment session today tolerating normal activity, however following time on the Shuttle Balance, requested manual treatment on his ankle, as it was beginning to bother him again. Physical Therapy Plan Frequency and Duration Frequency of Treatment 2x/Week Duration of Treatment 3 months Plan of Care Start Date 01/21/18 Plan of Care End Date 04/23/18 Therapeutic Interventions Therapeutic Interventions Aquatic Therapy Balance Training Gait Training Home Exercise Program Neuromuscular Re-education Patient/Caregiver Education Self-Care/Home Management Therapeutic Activities Therapeutic Exercises Next Visit Focus/Plan Next Note Type Treatment Note Next Visit Plan assess R ankle tolerance to this treatment, prog. as tolerated with R ankle stability/mobility and gait toward unstable surfaces
--- NOTE | 2018-02-25 14:32 | PT.OTN ---
Current Diagnoses Spastic hemiplegia affecting right dominant side (02/25/18) Cerebral infarction due to unspecified occlusion or stenosis of left middle cerebral artery (02/25/18) Difficulty in walking, not elsewhere classified (02/25/18) Repeated falls (02/25/18) Apraxia (02/25/18) Weakness (02/25/18) Physical Therapy Treatment Note PT-OP-A Visit Information Start: 08/19/17 08:09 Freq: Status: Active Protocol: Document 02/25/18 13:45 DCW (Rec: 02/25/18 14:32 DCW [id number]) Out-Patient Physical Therapy Visit Information Visit Information Visit Type Treatment Note Visit Start Time 13:45 Visit Stop Time 14:30 Total Visit Minutes 45 Number of SERVICE OBSERVER Visits 0 PT-OP-C Subjective Start: 08/19/17 08:09 Freq: Status: Active Protocol: Document 02/25/18 13:45 DCW (Rec: 02/25/18 14:32 DCW [id number]) OP-PT Subjective Patient Comments Patient Comments Pt notes his ankle has continued to improve, but he believes his ankle pain is related to the recent decline in weather. PT-OP-E Functional Tests Start: 01/21/18 14:41 Freq: Status: Active Protocol: Document 01/21/18 13:45 DCW (Rec: 01/21/18 14:44 DCW [id number]) Functional Tests 6 Minute Walk Test Distance 918 Device Used AFO Dynamic Gait Index (DGI) Score 15/24 DGI Impairment Rating 20 to <40% Impaired (Score 15- 19) PT-OP-F Manual Assessment Start: 02/12/18 13:26 Freq: Status: Active Protocol: Document 02/11/18 14:30 RCC (Rec: 02/12/18 13:43 RCC [email or web address]) Manual Assessments Joint Mobility Assessment Joint Mobility Assessment hypomobile talocrural joint- posterior glide of talus. PT-OP-G Mobility & Gait Start: 01/21/18 14:41 Freq: Status: Active Protocol: Document 01/21/18 13:45 DCW (Rec: 01/21/18 14:44 DCW [id number]) OP Mobility Evaluation Transfers Floor Transfers Modified independent with SPC Functional Movements Other Functional Movements Stepping over 6 object: Independent leading with both left or right foot PT-OP-Q Treatments Start: 08/19/17 08:09 Freq: Status: Active Protocol: Document 02/25/18 13:45 DCW (Rec: 02/25/18 14:32 DCW [id number]) Cardio Equipment Elliptical Duration (Minutes) 5 Resistance 3 Gym Equipment Shuttle Balance Black Details Uneven (5) Comments Turns, Perturbations, Eyes closed. Manual Therapy Treatment Joint Mobilizations talocrural joint Joint R talocrural joint Direction A/P Grade II Body Position Supine Comments static and MWM/muscle activation into DF with light traction Other Other Manual Treatments manual stretching of gastroc/ soleus, AAROM in all planes R aknle PT-OP-R Modalities Start: 08/19/17 08:09 Freq: Status: Active Protocol: Document 12/31/17 13:33 LRN (Rec: 12/31/17 14:41 LRN [id number]) Electric Stimulation Electric Stimulation Czech Stimulation Duration (Minutes) 10 Intensity 39 Contraction Type Normal High/Low High Cycle 10/10 Patient Position Sitting Comments Electrodes on R anterior tib for ankle DF PT-OP-S Aquatic Treatment Start: 09/27/17 14:34 Freq: Status: Active Protocol: Document 11/22/17 13:00 TMS (Rec: 11/22/17 16:26 TMS [email or web address]) Aquatics Treatment Pool Entry/Exit Pool Entry/Exit Method Stairs Assistance Standby Assistance Water Walking Forwards Water Level Chest Level Level of Assistance Standby Assistance Comments Cues, with and without fins. Lower Extremity Exercises 5 Details Single leg standing Body Position Standing Water Level Chest Level 1 Details Right hip AB/AD. Body Position Standing Water Level Chest Level Lower Extremity Stretches 1 Details Gastroc stretching Body Position Standing Water Level Waist Level Comments Manual assist Upper Extremity Stretches 1 Details Horizontal AB/AD Body Position Standing Water Level Chest Level Equipment Large resistance barbells Reps/Duration x 15 reps Swim Strokes Flutter Equipment Fins Kickboard Comments Min-A Backstroke Other Equipment Used With and without fins Comments 5 minutes PT-OP-T Assessment and Plan Start: 08/19/17 08:09 Freq: Status: Active Protocol: Document 02/25/18 13:45 DCW (Rec: 02/25/18 14:32 DCW [id number]) Physical Therapy Assessment Impairments Impairments Balance Functional Activities Functional Mobility Gait Strength Tone Goals Five Impairment strength Senior Living Goal (LTG) Patient will improve his LE strength to be able to step over a 6 object independently and safely with either LE without catching foot or losing balance LTG Duration MET Four Impairment functional mobility Senior Living Goal (LTG) Patient able to perform car transfers and floor transfers with ease, without loss of balance to improve his safety and quality of life LTG Duration MET Three Impairment Patient education Building Associate Goal (LTG) Progress HEP, patient to be independent and compliant with updated HEP as his function continues to improve LTG Duration 04/23/18 Two Impairment balance Senior Living Goal (LTG) Improve Dynamic gait index to 19 or greater out of 24 for decreased fall risk LTG Duration 04/23/18 - Improving One Impairment functional mobility/gait Building Associate Goal (LTG) Patient to improve 6 min walk test test to 1200 feet. LTG Duration 04/23/18 Assessment Summary Assessment Improved, but still limited, tolerance to activity secondary to complaints of ankle stiffness. Physical Therapy Plan Frequency and Duration Frequency of Treatment 2x/Week Duration of Treatment 3 months Plan of Care Start Date 01/21/18 Plan of Care End Date 04/23/18 Therapeutic Interventions Therapeutic Interventions Aquatic Therapy Balance Training Gait Training Home Exercise Program Neuromuscular Re-education Patient/Caregiver Education Self-Care/Home Management Therapeutic Activities Therapeutic Exercises Next Visit Focus/Plan Next Note Type Treatment Note Next Visit Plan prog. as tolerated with R ankle stability/mobility and gait toward unstable surfaces
--- NOTE | 2018-03-04 14:29 | PT.OTN ---
Current Diagnoses Spastic hemiplegia affecting right dominant side (03/04/18) Cerebral infarction due to unspecified occlusion or stenosis of left middle cerebral artery (03/04/18) Difficulty in walking, not elsewhere classified (03/04/18) Repeated falls (03/04/18) Apraxia (03/04/18) Weakness (03/04/18) Physical Therapy Treatment Note PT-OP-A Visit Information Start: 08/19/17 08:09 Freq: Status: Active Protocol: Document 03/04/18 13:45 DCW (Rec: 03/04/18 14:29 DCW [id number]) Out-Patient Physical Therapy Visit Information Visit Information Visit Type Treatment Note Visit Start Time 13:45 Visit Stop Time 14:30 Total Visit Minutes 45 Number of RICE FARMER Visits 0 PT-OP-C Subjective Start: 08/19/17 08:09 Freq: Status: Active Protocol: Document 03/04/18 13:45 DCW (Rec: 03/04/18 14:29 DCW [id number]) OP-PT Subjective Patient Comments Patient Comments Pt reports that his foot is feeling a lot better, and he thinks it may have been due to his boots being too tight and squeezing his AFO into his foot. PT-OP-E Functional Tests Start: 01/21/18 14:41 Freq: Status: Active Protocol: Document 01/21/18 13:45 DCW (Rec: 01/21/18 14:44 DCW [id number]) Functional Tests 6 Minute Walk Test Distance 918 Device Used AFO Dynamic Gait Index (DGI) Score 15/24 DGI Impairment Rating 20 to <40% Impaired (Score 15- 19) PT-OP-F Manual Assessment Start: 02/12/18 13:26 Freq: Status: Active Protocol: Document 02/11/18 14:30 RCC (Rec: 02/12/18 13:43 RCC [email or web address]) Manual Assessments Joint Mobility Assessment Joint Mobility Assessment hypomobile talocrural joint- posterior glide of talus. PT-OP-G Mobility & Gait Start: 01/21/18 14:41 Freq: Status: Active Protocol: Document 01/21/18 13:45 DCW (Rec: 01/21/18 14:44 DCW [id number]) OP Mobility Evaluation Transfers Floor Transfers Modified independent with SPC Functional Movements Other Functional Movements Stepping over 6 object: Independent leading with both left or right foot PT-OP-Q Treatments Start: 08/19/17 08:09 Freq: Status: Active Protocol: Document 03/04/18 13:45 DCW (Rec: 03/04/18 14:29 DCW [id number]) Cardio Equipment Elliptical Duration (Minutes) 5 Resistance 3 Gym Equipment Shuttle Balance Red Details Wide DONNA (EO/EC), Lateral weight shift Comments EO/EC, Vertical head turns, vs perturbation Therapeutic Exercises Standing Exercises 3 Standing Exercise Name side-stepping, forward, and backwards Resistance yellow Equipment Used T-band Reps/Minutes x2 laps each 1 Standing Exercise Name lunge on bosu Side bilateral Reps/Minutes 10x ea Comments CG to mod assist for bal Neuro Re-Education Treatment Balance Activities 7 Details SLS Surface Blue foam PT-OP-R Modalities Start: 08/19/17 08:09 Freq: Status: Active Protocol: Document 12/31/17 13:33 LRN (Rec: 12/31/17 14:41 LRN [id number]) Electric Stimulation Electric Stimulation [place]ian Stimulation Duration (Minutes) 10 Intensity 39 Contraction Type Normal High/Low High Cycle 10/10 Patient Position Sitting Comments Electrodes on R anterior tib for ankle DF PT-OP-S Aquatic Treatment Start: 09/27/17 14:34 Freq: Status: Active Protocol: Document 11/22/17 13:00 TMS (Rec: 11/22/17 16:26 TMS [email or web address]) Aquatics Treatment Pool Entry/Exit Pool Entry/Exit Method Stairs Assistance Standby Assistance Water Walking Forwards Water Level Chest Level Level of Assistance Standby Assistance Comments Cues, with and without fins. Lower Extremity Exercises 5 Details Single leg standing Body Position Standing Water Level Chest Level 1 Details Right hip AB/AD. Body Position Standing Water Level Chest Level Lower Extremity Stretches 1 Details Gastroc stretching Body Position Standing Water Level Waist Level Comments Manual assist Upper Extremity Stretches 1 Details Horizontal AB/AD Body Position Standing Water Level Chest Level Equipment Large resistance barbells Reps/Duration x 15 reps Swim Strokes Flutter Equipment Fins Kickboard Comments Min-A Backstroke Other Equipment Used With and without fins Comments 5 minutes PT-OP-T Assessment and Plan Start: 08/19/17 08:09 Freq: Status: Active Protocol: Document 03/04/18 13:45 DCW (Rec: 03/04/18 14:29 DCW [id number]) Physical Therapy Assessment Impairments Impairments Balance Functional Activities Functional Mobility Gait Strength Tone Goals Five Impairment strength Bookie Goal (LTG) Patient will improve his LE strength to be able to step over a 6 object independently and safely with either LE without catching foot or losing balance LTG Duration MET Four Impairment functional mobility Alf Goal (LTG) Patient able to perform car transfers and floor transfers with ease, without loss of balance to improve his safety and quality of life LTG Duration MET Three Impairment Patient education Bookie Goal (LTG) Progress HEP, patient to be independent and compliant with updated HEP as his function continues to improve LTG Duration 04/23/18 Two Impairment balance Bookie Goal (LTG) Improve Dynamic gait index to 19 or greater out of 24 for decreased fall risk LTG Duration 04/23/18 - Improving One Impairment functional mobility/gait Bookie Goal (LTG) Patient to improve 6 min walk test test to 1200 feet. LTG Duration 04/23/18 Assessment Summary Assessment Pt able to tolerate full session of activity with no stopping due to ankle or foot pain. Physical Therapy Plan Frequency and Duration Frequency of Treatment 2x/Week Duration of Treatment 3 months Plan of Care Start Date 01/21/18 Plan of Care End Date 04/23/18 Therapeutic Interventions Therapeutic Interventions Aquatic Therapy Balance Training Gait Training Home Exercise Program Neuromuscular Re-education Patient/Caregiver Education Self-Care/Home Management Therapeutic Activities Therapeutic Exercises Next Visit Focus/Plan Next Note Type Treatment Note Next Visit Plan prog. as tolerated with R ankle stability/mobility and gait toward unstable surfaces
--- NOTE | 2018-03-18 14:28 | PT.OTN ---
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 (03/18/18) Difficulty in walking, not elsewhere classified (03/18/18) Repeated falls (03/18/18) Apraxia (03/18/18) Weakness (03/18/18) Physical Therapy Treatment Note PT-OP-A Visit Information Start: 08/19/17 08:09 Freq: Status: Active Protocol: Document 03/18/18 13:45 DCW (Rec: 03/18/18 14:28 DCW [id number]) Out-Patient Physical Therapy Visit Information Visit Information Visit Type Treatment Note Visit Start Time 13:45 Visit Stop Time 14:30 Total Visit Minutes 45 Number of BUTT SAWYER Visits 0 PT-OP-C Subjective Start: 08/19/17 08:09 Freq: Status: Active Protocol: Document 03/18/18 13:45 DCW (Rec: 03/18/18 14:28 DCW [id number]) OP-PT Subjective Patient Comments Patient Comments Pt reports that last week, he had his senior grants officer remove the toenail on the second toe of his right foot, as his toe curls under and puts pressure directly on the end of the nail. Pt reports his foot now feels fantastic, and is no longer causing him pain. PT-OP-E Functional Tests Start: 01/21/18 14:41 Freq: Status: Active Protocol: Document 01/21/18 13:45 DCW (Rec: 01/21/18 14:44 DCW [id number]) Functional Tests 6 Minute Walk Test Distance 918 Device Used AFO Dynamic Gait Index (DGI) Score 15/24 DGI Impairment Rating 20 to <40% Impaired (Score 15- 19) PT-OP-F Manual Assessment Start: 02/12/18 13:26 Freq: Status: Active Protocol: Document 02/11/18 14:30 RCC (Rec: 02/12/18 13:43 RCC [id number]) Manual Assessments Joint Mobility Assessment Joint Mobility Assessment hypomobile talocrural joint- posterior glide of talus. PT-OP-G Mobility & Gait Start: 01/21/18 14:41 Freq: Status: Active Protocol: Document 01/21/18 13:45 DCW (Rec: 01/21/18 14:44 DCW [id number]) OP Mobility Evaluation Transfers Floor Transfers Modified independent with SPC Functional Movements Other Functional Movements Stepping over 6 object: Independent leading with both left or right foot PT-OP-Q Treatments Start: 08/19/17 08:09 Freq: Status: Active Protocol: Document 03/18/18 13:45 DCW (Rec: 03/18/18 14:28 DCW [id number]) Cardio Equipment Elliptical Duration (Minutes) 5 Resistance 5 Gym Equipment Shuttle Balance Red Details Wide DONNA (EO/EC), Lateral weight shift Comments EO/EC, Vertical head turns, vs perturbation Therapeutic Exercises Supine Exercises Bridging /c SLR Supine Exercise Name Bridging /c alternating leg lift Side bilateral Sidelying Exercises Clamshell Sidelying Exercise Name Clamshell Side right hip abduction Sidelying Exercise Name hip abduction Side right Resistance 0 lbs Standing Exercises 3 Standing Exercise Name side-stepping, forward, and backwards Resistance yellow Equipment Used T-band Reps/Minutes x2 laps each Neuro Re-Education Treatment Balance Activities balance beams Details heel to toe on balance beams 7 Details SLS Surface Blue foam PT-OP-R Modalities Start: 08/19/17 08:09 Freq: Status: Active Protocol: Document 12/31/17 13:33 LRN (Rec: 12/31/17 14:41 LRN [id number]) Electric Stimulation Electric Stimulation Senegalese Stimulation Duration (Minutes) 10 Intensity 39 Contraction Type Normal High/Low High Cycle 10/10 Patient Position Sitting Comments Electrodes on R anterior tib for ankle DF PT-OP-S Aquatic Treatment Start: 09/27/17 14:34 Freq: Status: Active Protocol: Document 11/22/17 13:00 TMS (Rec: 11/22/17 16:26 TMS [email or web address]) Aquatics Treatment Pool Entry/Exit Pool Entry/Exit Method Stairs Assistance Standby Assistance Water Walking Forwards Water Level Chest Level Level of Assistance Standby Assistance Comments Cues, with and without fins. Lower Extremity Exercises 5 Details Single leg standing Body Position Standing Water Level Chest Level 1 Details Right hip AB/AD. Body Position Standing Water Level Chest Level Lower Extremity Stretches 1 Details Gastroc stretching Body Position Standing Water Level Waist Level Comments Manual assist Upper Extremity Stretches 1 Details Horizontal AB/AD Body Position Standing Water Level Chest Level Equipment Large resistance barbells Reps/Duration x 15 reps Swim Strokes Flutter Equipment Fins Kickboard Comments Min-A Backstroke Other Equipment Used With and without fins Comments 5 minutes PT-OP-T Assessment and Plan Start: 08/19/17 08:09 Freq: Status: Active Protocol: Document 03/18/18 13:45 DCW (Rec: 03/18/18 14:28 DCW [id number]) Physical Therapy Assessment Impairments Impairments Balance Functional Activities Functional Mobility Gait Strength Tone Goals Five Impairment strength Research Administrator Goal (LTG) Patient will improve his LE strength to be able to step over a 6 object independently and safely with either LE without catching foot or losing balance LTG Duration MET Four Impairment functional mobility Fci Goal (LTG) Patient able to perform car transfers and floor transfers with ease, without loss of balance to improve his safety and quality of life LTG Duration MET Three Impairment Patient education Research Administrator Goal (LTG) Progress HEP, patient to be independent and compliant with updated HEP as his function continues to improve LTG Duration 04/23/18 Two Impairment balance Research Administrator Goal (LTG) Improve Dynamic gait index to 19 or greater out of 24 for decreased fall risk LTG Duration 04/23/18 - Improving One Impairment functional mobility/gait Fci Goal (LTG) Patient to improve 6 min walk test test to 1200 feet. LTG Duration 04/23/18 Assessment Summary Assessment Pt c/o mild foot pain with aggressive perturbation of Shuttle Balance, but tolerated all other TherEx with no complaints Physical Therapy Plan Frequency and Duration Frequency of Treatment 2x/Week Duration of Treatment 3 months Plan of Care Start Date 01/21/18 Plan of Care End Date 04/23/18 Therapeutic Interventions Therapeutic Interventions Aquatic Therapy Balance Training Gait Training Home Exercise Program Neuromuscular Re-education Patient/Caregiver Education Self-Care/Home Management Therapeutic Activities Therapeutic Exercises Next Visit Focus/Plan Next Note Type Treatment Note Next Visit Plan prog. as tolerated with R ankle stability/mobility and gait toward unstable surfaces
--- NOTE | 2018-03-25 14:29 | PT.OTN ---
Current Diagnoses Spastic hemiplegia affecting right dominant side (03/25/18) Cerebral infarction due to unspecified occlusion or stenosis of left middle cerebral artery (03/25/18) Difficulty in walking, not elsewhere classified (03/25/18) Repeated falls (03/25/18) Apraxia (03/25/18) Weakness (03/25/18) Physical Therapy Treatment Note PT-OP-A Visit Information Start: 08/19/17 08:09 Freq: Status: Active Protocol: Document 03/25/18 13:45 DCW (Rec: 03/25/18 14:29 DCW [id number]) Out-Patient Physical Therapy Visit Information Visit Information Visit Type Treatment Note Visit Start Time 13:45 Visit Stop Time 14:30 Total Visit Minutes 45 Number of WOOD CAULKER Visits 0 PT-OP-C Subjective Start: 08/19/17 08:09 Freq: Status: Active Protocol: Document 03/25/18 13:45 DCW (Rec: 03/25/18 14:29 DCW [id number]) OP-PT Subjective Patient Comments Patient Comments Pt reports his foot is better , but not today. PT-OP-E Functional Tests Start: 01/21/18 14:41 Freq: Status: Active Protocol: Document 01/21/18 13:45 DCW (Rec: 01/21/18 14:44 DCW [id number]) Functional Tests 6 Minute Walk Test Distance 918 Device Used AFO Dynamic Gait Index (DGI) Score 15/24 DGI Impairment Rating 20 to <40% Impaired (Score 15- 19) PT-OP-F Manual Assessment Start: 02/12/18 13:26 Freq: Status: Active Protocol: Document 02/11/18 14:30 RCC (Rec: 02/12/18 13:43 RCC [email or web address]) Manual Assessments Joint Mobility Assessment Joint Mobility Assessment hypomobile talocrural joint- posterior glide of talus. PT-OP-G Mobility & Gait Start: 01/21/18 14:41 Freq: Status: Active Protocol: Document 01/21/18 13:45 DCW (Rec: 01/21/18 14:44 DCW [id number]) OP Mobility Evaluation Transfers Floor Transfers Modified independent with SPC Functional Movements Other Functional Movements Stepping over 6 object: Independent leading with both left or right foot PT-OP-Q Treatments Start: 08/19/17 08:09 Freq: Status: Active Protocol: Document 03/25/18 13:45 DCW (Rec: 03/25/18 14:29 DCW [id number]) Cardio Equipment Elliptical Duration (Minutes) 5 Resistance 5 Gym Equipment Shuttle Balance Red Details Wide DONNA (EO/EC), Lateral weight shift Comments EO/EC, Vertical head turns, vs perturbation Therapeutic Exercises Standing Exercises 3 Standing Exercise Name side-stepping, forward, and backwards Resistance Green Equipment Used T-band Reps/Minutes x2 laps each 1 Standing Exercise Name lunge on bosu Side bilateral Reps/Minutes 10x ea Comments CG to mod assist for bal PT-OP-R Modalities Start: 08/19/17 08:09 Freq: Status: Active Protocol: Document 12/31/17 13:33 LRN (Rec: 12/31/17 14:41 LRN [id number]) Electric Stimulation Electric Stimulation Gabonese Stimulation Duration (Minutes) 10 Intensity 39 Contraction Type Normal High/Low High Cycle 10/10 Patient Position Sitting Comments Electrodes on R anterior tib for ankle DF PT-OP-S Aquatic Treatment Start: 09/27/17 14:34 Freq: Status: Active Protocol: Document 11/22/17 13:00 TMS (Rec: 11/22/17 16:26 TMS [email or web address]) Aquatics Treatment Pool Entry/Exit Pool Entry/Exit Method Stairs Assistance Standby Assistance Water Walking Forwards Water Level Chest Level Level of Assistance Standby Assistance Comments Cues, with and without fins. Lower Extremity Exercises 5 Details Single leg standing Body Position Standing Water Level Chest Level 1 Details Right hip AB/AD. Body Position Standing Water Level Chest Level Lower Extremity Stretches 1 Details Gastroc stretching Body Position Standing Water Level Waist Level Comments Manual assist Upper Extremity Stretches 1 Details Horizontal AB/AD Body Position Standing Water Level Chest Level Equipment Large resistance barbells Reps/Duration x 15 reps Swim Strokes Flutter Equipment Fins Kickboard Comments Min-A Backstroke Other Equipment Used With and without fins Comments 5 minutes PT-OP-T Assessment and Plan Start: 08/19/17 08:09 Freq: Status: Active Protocol: Document 03/25/18 13:45 DCW (Rec: 03/25/18 14:29 DCW [id number]) Physical Therapy Assessment Impairments Impairments Balance Functional Activities Functional Mobility Gait Strength Tone Goals Five Impairment strength Bolter Helper Goal (LTG) Patient will improve his LE strength to be able to step over a 6 object independently and safely with either LE without catching foot or losing balance LTG Duration MET Four Impairment functional mobility Bolter Helper Goal (LTG) Patient able to perform car transfers and floor transfers with ease, without loss of balance to improve his safety and quality of life LTG Duration MET Three Impairment Patient education Detention Goal (LTG) Progress HEP, patient to be independent and compliant with updated HEP as his function continues to improve LTG Duration 04/23/18 Two Impairment balance Detention Goal (LTG) Improve Dynamic gait index to 19 or greater out of 24 for decreased fall risk LTG Duration 04/23/18 - Improving One Impairment functional mobility/gait Detention Goal (LTG) Patient to improve 6 min walk test test to 1200 feet. LTG Duration 04/23/18 Assessment Summary Assessment Pt did well today, mild fatigue corrected with quick rest breaks. Physical Therapy Plan Frequency and Duration Frequency of Treatment 2x/Week Duration of Treatment 3 months Plan of Care Start Date 01/21/18 Plan of Care End Date 04/23/18 Therapeutic Interventions Therapeutic Interventions Aquatic Therapy Balance Training Gait Training Home Exercise Program Neuromuscular Re-education Patient/Caregiver Education Self-Care/Home Management Therapeutic Activities Therapeutic Exercises Next Visit Focus/Plan Next Note Type Treatment Note Next Visit Plan prog. as tolerated with R ankle stability/mobility and gait toward unstable surfaces
--- NOTE | 2018-04-01 14:27 | PT.OTN ---
Current Diagnoses Spastic hemiplegia affecting right dominant side (04/01/18) Cerebral infarction due to unspecified occlusion or stenosis of left middle cerebral artery (04/01/18) Difficulty in walking, not elsewhere classified (04/01/18) Repeated falls (04/01/18) Apraxia (04/01/18) Weakness (04/01/18) Physical Therapy Treatment Note PT-OP-A Visit Information Start: 08/19/17 08:09 Freq: Status: Active Protocol: Document 04/01/18 14:27 RCC (Rec: 04/03/18 16:57 RCC [email or web address]) Out-Patient Physical Therapy Visit Information Visit Information Visit Type Treatment Note Visit Start Time 13:45 Visit Stop Time 14:27 Total Visit Minutes 42 Number of MIDDLE [employer]ATE [employer] PRINCIPAL Visits 0 PT-OP-C Subjective Start: 08/19/17 08:09 Freq: Status: Active Protocol: Document 04/01/18 14:27 RCC (Rec: 04/03/18 16:57 RCC [email or web address]) OP-PT Subjective Patient Comments Patient Comments Pt denies any pain in the ankle or foot today. PT-OP-E Functional Tests Start: 01/21/18 14:41 Freq: Status: Active Protocol: Document 01/21/18 13:45 DCW (Rec: 01/21/18 14:44 DCW [id number]) Functional Tests 6 Minute Walk Test Distance 918 Device Used AFO Dynamic Gait Index (DGI) Score 15/24 DGI Impairment Rating 20 to <40% Impaired (Score 15- 19) PT-OP-F Manual Assessment Start: 02/12/18 13:26 Freq: Status: Active Protocol: Document 02/11/18 14:30 RCC (Rec: 02/12/18 13:43 RCC [email or web address]) Manual Assessments Joint Mobility Assessment Joint Mobility Assessment hypomobile talocrural joint- posterior glide of talus. PT-OP-G Mobility & Gait Start: 01/21/18 14:41 Freq: Status: Active Protocol: Document 01/21/18 13:45 DCW (Rec: 01/21/18 14:44 DCW [id number]) OP Mobility Evaluation Transfers Floor Transfers Modified independent with SPC Functional Movements Other Functional Movements Stepping over 6 object: Independent leading with both left or right foot PT-OP-Q Treatments Start: 08/19/17 08:09 Freq: Status: Active Protocol: Document 04/01/18 14:27 RCC (Rec: 04/03/18 16:57 RCC [email or web address]) Cardio Equipment Elliptical Duration (Minutes) 6 Resistance 5 Gym Equipment Shuttle Balance Balloon Volley Details Red- balloon volley using both hands Reps/Duration 6 min Red Details Wide DONNA (EO/EC), Lateral weight shift Comments EO/EC, Vertical head turns, vs perturbation Therapeutic Exercises Standing Exercises 1 Standing Exercise Name lunge on bosu Side bilateral Reps/Minutes 10x ea Comments CG to mod assist for bal Gait Training Gait Activity uneven surfaces Description forward gait Device Used // bars Level of Assistance CGA Surface uneven- foam and discs on ground covered with yoga mat Distance/Duration 10 min PT-OP-R Modalities Start: 08/19/17 08:09 Freq: Status: Active Protocol: Document 12/31/17 13:33 LRN (Rec: 12/31/17 14:41 LRN [id number]) Electric Stimulation Electric Stimulation Iraqi Stimulation Duration (Minutes) 10 Intensity 39 Contraction Type Normal High/Low High Cycle 10/10 Patient Position Sitting Comments Electrodes on R anterior tib for ankle DF PT-OP-S Aquatic Treatment Start: 09/27/17 14:34 Freq: Status: Active Protocol: Document 11/22/17 13:00 TMS (Rec: 11/22/17 16:26 TMS [email or web address]) Aquatics Treatment Pool Entry/Exit Pool Entry/Exit Method Stairs Assistance Standby Assistance Water Walking Forwards Water Level Chest Level Level of Assistance Standby Assistance Comments Cues, with and without fins. Lower Extremity Exercises 5 Details Single leg standing Body Position Standing Water Level Chest Level 1 Details Right hip AB/AD. Body Position Standing Water Level Chest Level Lower Extremity Stretches 1 Details Gastroc stretching Body Position Standing Water Level Waist Level Comments Manual assist Upper Extremity Stretches 1 Details Horizontal AB/AD Body Position Standing Water Level Chest Level Equipment Large resistance barbells Reps/Duration x 15 reps Swim Strokes Flutter Equipment Fins Kickboard Comments Min-A Backstroke Other Equipment Used With and without fins Comments 5 minutes PT-OP-T Assessment and Plan Start: 08/19/17 08:09 Freq: Status: Active Protocol: Document 04/01/18 14:27 RCC (Rec: 04/03/18 16:57 RCC [email or web address]) Physical Therapy Assessment Assessment Summary Assessment Pt required frequent LUE assistance for standing balance with balloon volley today. He was able to manage uneven gait with very slow gait and repositioning of his feet multiple times throughout session, as well as the need for occasional UE assistance. No c/o pain. Physical Therapy Plan Frequency and Duration Frequency of Treatment 2x/Week Duration of Treatment 3 months Plan of Care Start Date 01/21/18 Plan of Care End Date 04/23/18 Next Visit Focus/Plan Next Note Type Treatment Note Next Visit Plan prog. gait on uneven surfaces, balance, coordination and strength
--- NOTE | 2018-04-15 14:33 | PT.OTN ---
Current Diagnoses Spastic hemiplegia affecting right dominant side (04/15/18) Cerebral infarction due to unspecified occlusion or stenosis of left middle cerebral artery (04/15/18) Difficulty in walking, not elsewhere classified (04/15/18) Repeated falls (04/15/18) Apraxia (04/15/18) Weakness (04/15/18) Physical Therapy Treatment Note PT-OP-A Visit Information Start: 08/19/17 08:09 Freq: Status: Active Protocol: Document 04/15/18 13:45 DCW (Rec: 04/15/18 14:33 DCW [id number]) Out-Patient Physical Therapy Visit Information Visit Information Visit Type Treatment Note Visit Start Time 13:45 Visit Stop Time 14:30 Total Visit Minutes 45 Number of SERVICE GREETER Visits 0 PT-OP-C Subjective Start: 08/19/17 08:09 Freq: Status: Active Protocol: Document 04/15/18 13:45 DCW (Rec: 04/15/18 14:33 DCW [id number]) OP-PT Subjective Patient Comments Patient Comments Pt reports his foot is acting up again, but in a different location, more along his medial arch. PT-OP-E Functional Tests Start: 01/21/18 14:41 Freq: Status: Active Protocol: Document 01/21/18 13:45 DCW (Rec: 01/21/18 14:44 DCW [id number]) Functional Tests 6 Minute Walk Test Distance 918 Device Used AFO Dynamic Gait Index (DGI) Score 15/24 DGI Impairment Rating 20 to <40% Impaired (Score 15- 19) PT-OP-F Manual Assessment Start: 02/12/18 13:26 Freq: Status: Active Protocol: Document 02/11/18 14:30 RCC (Rec: 02/12/18 13:43 RCC [id number]) Manual Assessments Joint Mobility Assessment Joint Mobility Assessment hypomobile talocrural joint- posterior glide of talus. PT-OP-G Mobility & Gait Start: 01/21/18 14:41 Freq: Status: Active Protocol: Document 01/21/18 13:45 DCW (Rec: 01/21/18 14:44 DCW [id number]) OP Mobility Evaluation Transfers Floor Transfers Modified independent with SPC Functional Movements Other Functional Movements Stepping over 6 object: Independent leading with both left or right foot PT-OP-Q Treatments Start: 08/19/17 08:09 Freq: Status: Active Protocol: Document 04/15/18 13:45 DCW (Rec: 04/15/18 14:33 DCW [id number]) Cardio Equipment Elliptical Duration (Minutes) 5 Resistance 5 Gym Equipment Shuttle Balance Red Comments Wide DONNA (EO/EC, vs perturbations), Staggered Stance (Vertical head turns, vs perturbation) Neuro Re-Education Treatment Balance Activities DL BOSU Comments DL Standing, Marching /c B UE support 3 Details Slow marching Comments 5 each step 2 Details Tandem Ambulation Comments Forward/Backward PT-OP-R Modalities Start: 08/19/17 08:09 Freq: Status: Active Protocol: Document 12/31/17 13:33 LRN (Rec: 12/31/17 14:41 LRN [id number]) Electric Stimulation Electric Stimulation Hungarian Stimulation Duration (Minutes) 10 Intensity 39 Contraction Type Normal High/Low High Cycle 10/10 Patient Position Sitting Comments Electrodes on R anterior tib for ankle DF PT-OP-S Aquatic Treatment Start: 09/27/17 14:34 Freq: Status: Active Protocol: Document 11/22/17 13:00 TMS (Rec: 11/22/17 16:26 TMS [email or web address]) Aquatics Treatment Pool Entry/Exit Pool Entry/Exit Method Stairs Assistance Standby Assistance Water Walking Forwards Water Level Chest Level Level of Assistance Standby Assistance Comments Cues, with and without fins. Lower Extremity Exercises 5 Details Single leg standing Body Position Standing Water Level Chest Level 1 Details Right hip AB/AD. Body Position Standing Water Level Chest Level Lower Extremity Stretches 1 Details Gastroc stretching Body Position Standing Water Level Waist Level Comments Manual assist Upper Extremity Stretches 1 Details Horizontal AB/AD Body Position Standing Water Level Chest Level Equipment Large resistance barbells Reps/Duration x 15 reps Swim Strokes Flutter Equipment Fins Kickboard Comments Min-A Backstroke Other Equipment Used With and without fins Comments 5 minutes PT-OP-T Assessment and Plan Start: 08/19/17 08:09 Freq: Status: Active Protocol: Document 04/15/18 13:45 DCW (Rec: 04/15/18 14:33 DCW [id number]) Physical Therapy Assessment Impairments Impairments Balance Functional Activities Functional Mobility Gait Strength Tone Goals Five Impairment strength [facility] Goal (LTG) Patient will improve his LE strength to be able to step over a 6 object independently and safely with either LE without catching foot or losing balance LTG Duration MET Four Impairment functional mobility [facility] Goal (LTG) Patient able to perform car transfers and floor transfers with ease, without loss of balance to improve his safety and quality of life LTG Duration MET Three Impairment Patient education Security Business Analyst Goal (LTG) Progress HEP, patient to be independent and compliant with updated HEP as his function continues to improve LTG Duration 04/23/18 Two Impairment balance [facility] Goal (LTG) Improve Dynamic gait index to 19 or greater out of 24 for decreased fall risk LTG Duration 04/23/18 - Improving One Impairment functional mobility/gait [facility] Goal (LTG) Patient to improve 6 min walk test test to 1200 feet. LTG Duration 04/23/18 Assessment Summary Assessment Pt did well today despite his initial complaint of foot pain . Pt's foot was assessed, and there does not appear to be any notable change from baseline. Physical Therapy Plan Frequency and Duration Frequency of Treatment 2x/Week Duration of Treatment 3 months Plan of Care Start Date 01/21/18 Plan of Care End Date 04/23/18 Therapeutic Interventions Therapeutic Interventions Aquatic Therapy Balance Training Gait Training Home Exercise Program Neuromuscular Re-education Patient/Caregiver Education Self-Care/Home Management Therapeutic Activities Therapeutic Exercises Next Visit Focus/Plan Next Note Type Treatment Note Next Visit Plan prog. as tolerated with R ankle stability/mobility and gait toward unstable surfaces
--- NOTE | 2018-05-25 18:05 | PT.OTN ---
Current Diagnoses Spastic hemiplegia affecting right dominant side (05/25/18) Cerebral infarction due to unspecified occlusion or stenosis of left middle cerebral artery (05/25/18) Difficulty in walking, not elsewhere classified (05/25/18) Repeated falls (05/25/18) Apraxia (05/25/18) Weakness (05/25/18) Physical Therapy Treatment Note PT-OP-A Visit Information Start: 08/19/17 08:09 Freq: Status: Active Protocol: Document 05/25/18 15:15 DCW (Rec: 05/25/18 18:04 DCW [id number]) Out-Patient Physical Therapy Visit Information Visit Information Visit Type Progress Note Visit Start Time 15:15 Visit Stop Time 16:00 Total Visit Minutes 45 Number of SENIOR PEOPLESOFT DEVELOPER Visits 0 PT-OP-C Subjective Start: 08/19/17 08:09 Freq: Status: Active Protocol: Document 05/25/18 15:15 DCW (Rec: 05/25/18 18:04 DCW [id number]) OP-PT Subjective Patient Comments Patient Comments Pt reports his ankle has been feeling great overall, but was a little problematic earlier today. PT-OP-E Functional Tests Start: 01/21/18 14:41 Freq: Status: Active Protocol: Document 05/25/18 15:15 DCW (Rec: 05/25/18 15:58 DCW [id number]) Functional Tests 6 Minute Walk Test Distance 904 Device Used AFO Dynamic Gait Index (DGI) Score 18/24 DGI Impairment Rating 20 to <40% Impaired (Score 15- 19) Functional Gait Assessment Score 18/30 Functional Gait Assessment Impairment 40 to <60% Impaired (Score 13- Rating 18) PT-OP-F Manual Assessment Start: 02/12/18 13:26 Freq: Status: Active Protocol: Document 05/25/18 15:15 DCW (Rec: 05/25/18 17:56 DCW [id number]) Manual Assessments Joint Mobility Assessment Joint Mobility Assessment Pt no longer experiencing ankle pain/limitations PT-OP-G Mobility & Gait Start: 01/21/18 14:41 Freq: Status: Active Protocol: Document 05/25/18 15:15 DCW (Rec: 05/25/18 17:56 DCW [id number]) OP Mobility Evaluation Transfers Floor Transfers Modified independent with SPC Functional Movements Other Functional Movements Stepping over 6 object: Independent leading with both left or right foot PT-OP-Q Treatments Start: 08/19/17 08:09 Freq: Status: Active Protocol: Document 05/25/18 15:15 DCW (Rec: 05/25/18 18:04 DCW [id number]) Gym Equipment Shuttle Balance Red Details Wide DONNA (EO/EC), Lateral weight shift Comments EO/EC, Vertical head turns, vs perturbation Neuro Re-Education Treatment Balance Activities 1 Details 6 MWT, DGI, FGA testing PT-OP-R Modalities Start: 08/19/17 08:09 Freq: Status: Active Protocol: Document 12/31/17 13:33 LRN (Rec: 12/31/17 14:41 LRN [id number]) Electric Stimulation Electric Stimulation Iranian Stimulation Duration (Minutes) 10 Intensity 39 Contraction Type Normal High/Low High Cycle 10/10 Patient Position Sitting Comments Electrodes on R anterior tib for ankle DF PT-OP-S Aquatic Treatment Start: 09/27/17 14:34 Freq: Status: Active Protocol: Document 11/22/17 13:00 TMS (Rec: 11/22/17 16:26 TMS [id number]) Aquatics Treatment Pool Entry/Exit Pool Entry/Exit Method Stairs Assistance Standby Assistance Water Walking Forwards Water Level Chest Level Level of Assistance Standby Assistance Comments Cues, with and without fins. Lower Extremity Exercises 5 Details Single leg standing Body Position Standing Water Level Chest Level 1 Details Right hip AB/AD. Body Position Standing Water Level Chest Level Lower Extremity Stretches 1 Details Gastroc stretching Body Position Standing Water Level Waist Level Comments Manual assist Upper Extremity Stretches 1 Details Horizontal AB/AD Body Position Standing Water Level Chest Level Equipment Large resistance barbells Reps/Duration x 15 reps Swim Strokes Flutter Equipment Fins Kickboard Comments Min-A Backstroke Other Equipment Used With and without fins Comments 5 minutes PT-OP-T Assessment and Plan Start: 08/19/17 08:09 Freq: Status: Active Protocol: Document 05/25/18 15:15 DCW (Rec: 05/25/18 18:04 DCW [id number]) Physical Therapy Assessment Impairments Impairments Balance Functional Activities Functional Mobility Gait Strength Tone Goals Five Impairment strength Shelter Goal (LTG) Patient will improve his LE strength to be able to step over a 6 object independently and safely with either LE without catching foot or losing balance LTG Duration MET Four Impairment functional mobility Master Yacht Goal (LTG) Patient able to perform car transfers and floor transfers with ease, without loss of balance to improve his safety and quality of life LTG Duration MET Three Impairment Patient education Master Yacht Goal (LTG) Progress HEP, patient to be independent and compliant with updated HEP as his function continues to improve LTG Duration MET Two Impairment balance [employer] Yacht Goal (LTG) Improve Dynamic gait index to 19 or greater out of 24 for decreased fall risk LTG Duration 06/21/18 - Improving () One Impairment functional mobility/gait Shel[facility] Goal (LTG) Patient to improve 6 min walk test test to 1200 feet. LTG Duration 06/21/18 Assessment Summary Assessment Pt returns today from an extended break from therapy. Pt has been working hard at home, and has begun to learn Gustavo Chi, which he reports he improving his balance and helping to strengthen his hips . His DGI improved from a 15 to an 18 since last reassessment. Pt reports his current biggest daily obstacle is stepping out of his tub. Physical Therapy Plan Frequency and Duration Frequency of Treatment 2x/Week Duration of Treatment 3 months Plan of Care Start Date 05/25/18 Plan of Care End Date 08/22/18 Therapeutic Interventions Therapeutic Interventions Aquatic Therapy Balance Training Gait Training Home Exercise Program Neuromuscular Re-education Patient/Caregiver Education Self-Care/Home Management Therapeutic Activities Therapeutic Exercises Next Visit Focus/Plan Next Note Type Treatment Note Next Visit Plan prog. as tolerated with mobility and gait toward unstable surfaces
--- NOTE | 2018-05-25 18:05 | PT.OPPOC ---
Current Diagnoses Spastic hemiplegia affecting right dominant side (05/25/18) Cerebral infarction due to unspecified occlusion or stenosis of left middle cerebral artery (05/25/18) Difficulty in walking, not elsewhere classified (05/25/18) Repeated falls (05/25/18) Apraxia (05/25/18) Weakness (05/25/18) Provider Visit Care Team Role Provider Type H Naman Olmstead MD Family Provider Physician Primary Care Provider Specialty: Medical Address: [address] [place] [address], [place], [address] Email: Marietta Lawler Attending Provider Non-Staff Specialty: Medical Address: [address] [place] [address], [address] Email: Plan Of Care PT-OP-T Assessment and Plan Start: 08/19/17 08:09 Freq: Status: Active Protocol: Document 05/25/18 15:15 DCW (Rec: 05/25/18 18:04 DCW [id number]) Physical Therapy Assessment Impairments Impairments Balance Functional Activities Functional Mobility Gait Strength Tone Goals Five Impairment strength Fpc Goal (LTG) Patient will improve his LE strength to be able to step over a 6 object independently and safely with either LE without catching foot or losing balance LTG Duration MET Four Impairment functional mobility [facility]pc Goal (LTG) Patient able to perform car transfers and floor transfers with ease, without loss of balance to improve his safety and quality of life LTG Duration MET Three Impairment Patient education Fpc Goal (LTG) Progress HEP, patient to be independent and compliant with updated HEP as his function continues to improve LTG Duration MET Two Impairment balance Parts Counter Associate Goal (LTG) Improve Dynamic gait index to 19 or greater out of 24 for decreased fall risk LTG Duration 06/21/18 - Improving () One Impairment functional mobility/gait [facility] Goal (LTG) Patient to improve 6 min walk test test to 1200 feet. LTG Duration 06/21/18 Assessment Summary Assessment Pt returns today from an extended break from therapy. Pt has been working hard at home, and has begun to learn Gustavo Chi, which he reports he improving his balance and helping to strengthen his hips . His DGI improved from a 15/ 24 to an 18/24 since last reassessment. Pt reports his current biggest daily obstacle is stepping out of his tub. Physical Therapy Plan Frequency and Duration Frequency of Treatment 2x/Week Duration of Treatment 3 months Plan of Care Start Date 05/25/18 Plan of Care End Date 08/22/18 Therapeutic Interventions Therapeutic Interventions Aquatic Therapy Balance Training Gait Training Home Exercise Program Neuromuscular Re-education Patient/Caregiver Education Self-Care/Home Management Therapeutic Activities Therapeutic Exercises Next Visit Focus/Plan Next Note Type Treatment Note Next Visit Plan prog. as tolerated with mobility and gait toward unstable surfaces Plan of Care Dates Plan of Care Start Date 05/25/18 Plan of Care End Date 08/22/18 Please Sign and Return: I have reviewed this Plan of Care and certify that the skilled therapy services above are required to meet the patient?s needs. Physician Signature Date Printed Name and Credentials Clinical Instructor Signature Printed Name and Credentials
--- NOTE | 2018-06-08 16:02 | PT.OTN ---
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 (06/08/18) Difficulty in walking, not elsewhere classified (06/08/18) Repeated falls (06/08/18) Apraxia (06/08/18) Weakness (06/08/18) Physical Therapy Treatment Note PT-OP-A Visit Information Start: 08/19/17 08:09 Freq: Status: Active Protocol: Document 06/08/18 15:15 DCW (Rec: 06/08/18 16:02 DCW [id number]) Out-Patient Physical Therapy Visit Information Visit Information Visit Type Treatment Note Visit Start Time 15:15 Visit Stop Time 16:00 Total Visit Minutes 45 Number of PAI GOW MANAGER Visits 0 PT-OP-C Subjective Start: 08/19/17 08:09 Freq: Status: Active Protocol: Document 06/08/18 15:15 DCW (Rec: 06/08/18 16:02 DCW [id number]) OP-PT Subjective Patient Comments Patient Comments Pt reports he had had some moderate pain in my foot, but that's because I was being lazy. I started picking my foot up more, and then the pain went away. PT-OP-E Functional Tests Start: 01/21/18 14:41 Freq: Status: Active Protocol: Document 05/25/18 15:15 DCW (Rec: 05/25/18 15:58 DCW [id number]) Functional Tests 6 Minute Walk Test Distance 904 Device Used AFO Dynamic Gait Index (DGI) Score 18/24 DGI Impairment Rating 20 to <40% Impaired (Score 15- 19) Functional Gait Assessment Score 18/30 Functional Gait Assessment Impairment 40 to <60% Impaired (Score 13- Rating 18) PT-OP-F Manual Assessment Start: 02/12/18 13:26 Freq: Status: Active Protocol: Document 05/25/18 15:15 DCW (Rec: 05/25/18 17:56 DCW [id number]) Manual Assessments Joint Mobility Assessment Joint Mobility Assessment Pt no longer experiencing ankle pain/limitations PT-OP-G Mobility & Gait Start: 01/21/18 14:41 Freq: Status: Active Protocol: Document 05/25/18 15:15 DCW (Rec: 05/25/18 17:56 DCW [id number]) OP Mobility Evaluation Transfers Floor Transfers Modified independent with SPC Functional Movements Other Functional Movements Stepping over 6 object: Independent leading with both left or right foot PT-OP-Q Treatments Start: 08/19/17 08:09 Freq: Status: Active Protocol: Document 06/08/18 15:15 DCW (Rec: 06/08/18 16:02 DCW [id number]) Cardio Equipment Elliptical Duration (Minutes) 5 Resistance 5 Gym Equipment Therapeutic Ball Bridging /c HS curls Exercise Details Bridging /c HS curls Ball Size/Color Red - 55 cm Body Position Supine Therapeutic Exercises Standing Exercises 1 Standing Exercise Name lunge on bosu Side bilateral Reps/Minutes 10x ea Comments CG to min assist for bal Neuro Re-Education Treatment Balance Activities 7 Details SLS /c ball bounce Comments R SLS, bounce rubber ball from R to L hand 6 Details Double-length hurdles Comments Fwd, Side-stepping PT-OP-R Modalities Start: 08/19/17 08:09 Freq: Status: Active Protocol: Document 12/31/17 13:33 LRN (Rec: 12/31/17 14:41 LRN [id number]) Electric Stimulation Electric Stimulation Latvian Stimulation Duration (Minutes) 10 Intensity 39 Contraction Type Normal High/Low High Cycle 10/10 Patient Position Sitting Comments Electrodes on R anterior tib for ankle DF PT-OP-S Aquatic Treatment Start: 09/27/17 14:34 Freq: Status: Active Protocol: Document 11/22/17 13:00 TMS (Rec: 11/22/17 16:26 TMS [id number]) Aquatics Treatment Pool Entry/Exit Pool Entry/Exit Method Stairs Assistance Standby Assistance Water Walking Forwards Water Level Chest Level Level of Assistance Standby Assistance Comments Cues, with and without fins. Lower Extremity Exercises 5 Details Single leg standing Body Position Standing Water Level Chest Level 1 Details Right hip AB/AD. Body Position Standing Water Level Chest Level Lower Extremity Stretches 1 Details Gastroc stretching Body Position Standing Water Level Waist Level Comments Manual assist Upper Extremity Stretches 1 Details Horizontal AB/AD Body Position Standing Water Level Chest Level Equipment Large resistance barbells Reps/Duration x 15 reps Swim Strokes Flutter Equipment Fins Kickboard Comments Min-A Backstroke Other Equipment Used With and without fins Comments 5 minutes PT-OP-T Assessment and Plan Start: 08/19/17 08:09 Freq: Status: Active Protocol: Document 06/08/18 15:15 DCW (Rec: 06/08/18 16:02 DCW [id number]) Physical Therapy Assessment Impairments Impairments Balance Functional Activities Functional Mobility Gait Strength Tone Goals Five Impairment strength Coal Tower Operator Goal (LTG) Patient will improve his LE strength to be able to step over a 6 object independently and safely with either LE without catching foot or losing balance LTG Duration MET Four Impairment functional mobility Half-Way Goal (LTG) Patient able to perform car transfers and floor transfers with ease, without loss of balance to improve his safety and quality of life LTG Duration MET Three Impairment Patient education Coal Tower Operator Goal (LTG) Progress HEP, patient to be independent and compliant with updated HEP as his function continues to improve LTG Duration MET Two Impairment balance Coal Tower Operator Goal (LTG) Improve Dynamic gait index to 19 or greater out of 24 for decreased fall risk LTG Duration 06/21/18 - Improving () One Impairment functional mobility/gait Half-Way Goal (LTG) Patient to improve 6 min walk test test to 1200 feet. LTG Duration 06/21/18 Assessment Summary Assessment Pt was challenged with new activities today, after initially expressing doubts about his ability to perform activities, he was able to perform all requested actions with minimal assistance Physical Therapy Plan Frequency and Duration Frequency of Treatment 2x/Week Duration of Treatment 3 months Plan of Care Start Date 05/25/18 Plan of Care End Date 08/22/18 Therapeutic Interventions Therapeutic Interventions Aquatic Therapy Balance Training Gait Training Home Exercise Program Neuromuscular Re-education Patient/Caregiver Education Self-Care/Home Management Therapeutic Activities Therapeutic Exercises Next Visit Focus/Plan Next Note Type Treatment Note Next Visit Plan prog. as tolerated with mobility and gait toward unstable surfaces
--- NOTE | 2018-06-15 16:01 | PT.OTN ---
Current Diagnoses Spastic hemiplegia affecting right dominant side (06/15/18) Cerebral infarction due to unspecified occlusion or stenosis of left middle cerebral artery (06/15/18) Difficulty in walking, not elsewhere classified (06/15/18) Repeated falls (06/15/18) Apraxia (06/15/18) Weakness (06/15/18) Physical Therapy Treatment Note PT-OP-A Visit Information Start: 08/19/17 08:09 Freq: Status: Active Protocol: Document 06/15/18 15:15 DCW (Rec: 06/15/18 16:00 DCW [id number]) Out-Patient Physical Therapy Visit Information Visit Information Visit Type Treatment Note Visit Start Time 15:15 Visit Stop Time 16:00 Total Visit Minutes 45 Number of GROCERY STORE BAGGER Visits 0 PT-OP-C Subjective Start: 08/19/17 08:09 Freq: Status: Active Protocol: Document 06/15/18 15:15 DCW (Rec: 06/15/18 16:00 DCW [id number]) OP-PT Subjective Patient Comments Patient Comments Pt notes some increased pain in his foot today after walking a lot at class. PT-OP-E Functional Tests Start: 01/21/18 14:41 Freq: Status: Active Protocol: Document 05/25/18 15:15 DCW (Rec: 05/25/18 15:58 DCW [id number]) Functional Tests 6 Minute Walk Test Distance 904 Device Used AFO Dynamic Gait Index (DGI) Score 18/24 DGI Impairment Rating 20 to <40% Impaired (Score 15- 19) Functional Gait Assessment Score 18/30 Functional Gait Assessment Impairment 40 to <60% Impaired (Score 13- Rating 18) PT-OP-F Manual Assessment Start: 02/12/18 13:26 Freq: Status: Active Protocol: Document 05/25/18 15:15 DCW (Rec: 05/25/18 17:56 DCW [id number]) Manual Assessments Joint Mobility Assessment Joint Mobility Assessment Pt no longer experiencing ankle pain/limitations PT-OP-G Mobility & Gait Start: 01/21/18 14:41 Freq: Status: Active Protocol: Document 05/25/18 15:15 DCW (Rec: 05/25/18 17:56 DCW [id number]) OP Mobility Evaluation Transfers Floor Transfers Modified independent with SPC Functional Movements Other Functional Movements Stepping over 6 object: Independent leading with both left or right foot PT-OP-Q Treatments Start: 08/19/17 08:09 Freq: Status: Active Protocol: Document 06/15/18 15:15 DCW (Rec: 06/15/18 16:00 DCW [id number]) Gym Equipment Shuttle Balance Red Details Wide DONNA, Staggered Stance Comments EO/EC, Vertical head turns, vs perturbation Manual Therapy Treatment Joint Mobilizations talocrural joint Joint R talocrural joint Direction A/P Grade II Body Position Supine Comments static and MWM/muscle activation into DF with light traction Neuro Re-Education Treatment Balance Activities 7 Details SLS /c ball bounce Comments R SLS, bounce rubber ball from R to L hand 2 Details Tandem Ambulation Comments Forward/Backward PT-OP-R Modalities Start: 08/19/17 08:09 Freq: Status: Active Protocol: Document 12/31/17 13:33 LRN (Rec: 12/31/17 14:41 LRN [id number]) Electric Stimulation Electric Stimulation Gibraltarian Stimulation Duration (Minutes) 10 Intensity 39 Contraction Type Normal High/Low High Cycle 10/10 Patient Position Sitting Comments Electrodes on R anterior tib for ankle DF PT-OP-S Aquatic Treatment Start: 09/27/17 14:34 Freq: Status: Active Protocol: Document 11/22/17 13:00 TMS (Rec: 11/22/17 16:26 TMS [id number]) Aquatics Treatment Pool Entry/Exit Pool Entry/Exit Method Stairs Assistance Standby Assistance Water Walking Forwards Water Level Chest Level Level of Assistance Standby Assistance Comments Cues, with and without fins. Lower Extremity Exercises 5 Details Single leg standing Body Position Standing Water Level Chest Level 1 Details Right hip AB/AD. Body Position Standing Water Level Chest Level Lower Extremity Stretches 1 Details Gastroc stretching Body Position Standing Water Level Waist Level Comments Manual assist Upper Extremity Stretches 1 Details Horizontal AB/AD Body Position Standing Water Level Chest Level Equipment Large resistance barbells Reps/Duration x 15 reps Swim Strokes Flutter Equipment Fins Kickboard Comments Min-A Backstroke Other Equipment Used With and without fins Comments 5 minutes PT-OP-T Assessment and Plan Start: 08/19/17 08:09 Freq: Status: Active Protocol: Document 06/15/18 15:15 DCW (Rec: 06/15/18 16:00 DCW [id number]) Physical Therapy Assessment Impairments Impairments Balance Functional Activities Functional Mobility Gait Strength Tone Goals Five Impairment strength Hospital Insurance Clerk Goal (LTG) Patient will improve his LE strength to be able to step over a 6 object independently and safely with either LE without catching foot or losing balance LTG Duration MET Four Impairment functional mobility Custodial Goal (LTG) Patient able to perform car transfers and floor transfers with ease, without loss of balance to improve his safety and quality of life LTG Duration MET Three Impairment Patient education Hospital Insurance Clerk Goal (LTG) Progress HEP, patient to be independent and compliant with updated HEP as his function continues to improve LTG Duration MET Two Impairment balance Hospital Insurance Clerk Goal (LTG) Improve Dynamic gait index to 19 or greater out of 24 for decreased fall risk LTG Duration 06/21/18 - Improving () One Impairment functional mobility/gait Hospital Insurance Clerk Goal (LTG) Patient to improve 6 min walk test test to 1200 feet. LTG Duration 06/21/18 Assessment Summary Assessment Focused more on pt's foot/ ankle pain today, as he was unable to attempt the elliptical today due to pain from walking at school today. Physical Therapy Plan Frequency and Duration Frequency of Treatment 2x/Week Duration of Treatment 3 months Plan of Care Start Date 05/25/18 Plan of Care End Date 08/22/18 Therapeutic Interventions Therapeutic Interventions Aquatic Therapy Balance Training Gait Training Home Exercise Program Neuromuscular Re-education Patient/Caregiver Education Self-Care/Home Management Therapeutic Activities Therapeutic Exercises Next Visit Focus/Plan Next Note Type Treatment Note Next Visit Plan prog. as tolerated with mobility and gait toward unstable surfaces
--- NOTE | 2018-06-22 15:58 | PT.OTN ---
Current Diagnoses Spastic hemiplegia affecting right dominant side (06/22/18) Cerebral infarction due to unspecified occlusion or stenosis of left middle cerebral artery (06/22/18) Difficulty in walking, not elsewhere classified (06/22/18) Repeated falls (06/22/18) Apraxia (06/22/18) Weakness (06/22/18) Physical Therapy Treatment Note PT-OP-A Visit Information Start: 08/19/17 08:09 Freq: Status: Active Protocol: Document 06/22/18 15:15 DCW (Rec: 06/22/18 15:58 DCW [id number]) Out-Patient Physical Therapy Visit Information Visit Information Visit Type Treatment Note Visit Start Time 15:15 Visit Stop Time 16:00 Total Visit Minutes 45 Number of PAYROLL SECRETARY Visits 0 PT-OP-C Subjective Start: 08/19/17 08:09 Freq: Status: Active Protocol: Document 06/22/18 15:15 DCW (Rec: 06/22/18 15:58 DCW [id number]) OP-PT Subjective Patient Comments Patient Comments Pt notes that he is fine today, admits his ankle is fine now that I've taken some pills. PT-OP-E Functional Tests Start: 01/21/18 14:41 Freq: Status: Active Protocol: Document 05/25/18 15:15 DCW (Rec: 05/25/18 15:58 DCW [id number]) Functional Tests 6 Minute Walk Test Distance 904 Device Used AFO Dynamic Gait Index (DGI) Score 18/24 DGI Impairment Rating 20 to <40% Impaired (Score 15- 19) Functional Gait Assessment Score 18/30 Functional Gait Assessment Impairment 40 to <60% Impaired (Score 13- Rating 18) PT-OP-F Manual Assessment Start: 02/12/18 13:26 Freq: Status: Active Protocol: Document 05/25/18 15:15 DCW (Rec: 05/25/18 17:56 DCW [id number]) Manual Assessments Joint Mobility Assessment Joint Mobility Assessment Pt no longer experiencing ankle pain/limitations PT-OP-G Mobility & Gait Start: 01/21/18 14:41 Freq: Status: Active Protocol: Document 05/25/18 15:15 DCW (Rec: 05/25/18 17:56 DCW [id number]) OP Mobility Evaluation Transfers Floor Transfers Modified independent with SPC Functional Movements Other Functional Movements Stepping over 6 object: Independent leading with both left or right foot PT-OP-Q Treatments Start: 08/19/17 08:09 Freq: Status: Active Protocol: Document 06/22/18 15:15 DCW (Rec: 06/22/18 15:58 DCW [id number]) Cardio Equipment Elliptical Duration (Minutes) 5 Resistance 5 Gym Equipment Shuttle Balance Red Details Wide DONNA, Staggered Stance, Lateral Weight-shift Comments EO/EC, Vertical head turns, vs perturbation Therapeutic Activity Therapeutic Activity 1 Name Into/Out of tub Comments Stepping over two wedge bolsters /s AFO Neuro Re-Education Treatment Balance Activities 7 Details SLS /s AFO 5 Details Sharpened Romberg /c head turns PT-OP-R Modalities Start: 08/19/17 08:09 Freq: Status: Active Protocol: Document 12/31/17 13:33 LRN (Rec: 12/31/17 14:41 LRN [id number]) Electric Stimulation Electric Stimulation Qatari Stimulation Duration (Minutes) 10 Intensity 39 Contraction Type Normal High/Low High Cycle 10/10 Patient Position Sitting Comments Electrodes on R anterior tib for ankle DF PT-OP-S Aquatic Treatment Start: 09/27/17 14:34 Freq: Status: Active Protocol: Document 11/22/17 13:00 TMS (Rec: 11/22/17 16:26 TMS [id number]) Aquatics Treatment Pool Entry/Exit Pool Entry/Exit Method Stairs Assistance Standby Assistance Water Walking Forwards Water Level Chest Level Level of Assistance Standby Assistance Comments Cues, with and without fins. Lower Extremity Exercises 5 Details Single leg standing Body Position Standing Water Level Chest Level 1 Details Right hip AB/AD. Body Position Standing Water Level Chest Level Lower Extremity Stretches 1 Details Gastroc stretching Body Position Standing Water Level Waist Level Comments Manual assist Upper Extremity Stretches 1 Details Horizontal AB/AD Body Position Standing Water Level Chest Level Equipment Large resistance barbells Reps/Duration x 15 reps Swim Strokes Flutter Equipment Fins Kickboard Comments Min-A Backstroke Other Equipment Used With and without fins Comments 5 minutes PT-OP-T Assessment and Plan Start: 08/19/17 08:09 Freq: Status: Active Protocol: Document 06/22/18 15:15 DCW (Rec: 06/22/18 15:58 DCW [id number]) Physical Therapy Assessment Impairments Impairments Balance Functional Activities Functional Mobility Gait Strength Tone Goals Five Impairment strength Group Home Goal (LTG) Patient will improve his LE strength to be able to step over a 6 object independently and safely with either LE without catching foot or losing balance LTG Duration MET Four Impairment functional mobility Account Collector Goal (LTG) Patient able to perform car transfers and floor transfers with ease, without loss of balance to improve his safety and quality of life LTG Duration MET Three Impairment Patient education Group Home Goal (LTG) Progress HEP, patient to be independent and compliant with updated HEP as his function continues to improve LTG Duration MET Two Impairment balance Group Home Goal (LTG) Improve Dynamic gait index to 19 or greater out of 24 for decreased fall risk LTG Duration 06/21/18 - Improving () One Impairment functional mobility/gait Account Collector Goal (LTG) Patient to improve 6 min walk test test to 1200 feet. 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 Physical Therapy Plan Frequency and Duration Frequency of Treatment 2x/Week Duration of Treatment 3 months Plan of Care Start Date 05/25/18 Plan of Care End Date 08/22/18 Therapeutic Interventions Therapeutic Interventions Aquatic Therapy Balance Training Gait Training Home Exercise Program Neuromuscular Re-education Patient/Caregiver Education Self-Care/Home Management Therapeutic Activities Therapeutic Exercises Next Visit Focus/Plan Next Note Type Treatment Note Next Visit Plan prog. as tolerated with mobility and gait toward unstable surfaces
--- NOTE | 2018-06-29 16:01 | PT.OTN ---
Current Diagnoses Spastic hemiplegia affecting right dominant side (06/29/18) Cerebral infarction due to unspecified occlusion or stenosis of left middle cerebral artery (06/29/18) Difficulty in walking, not elsewhere classified (06/29/18) Repeated falls (06/29/18) Apraxia (06/29/18) Weakness (06/29/18) Physical Therapy Treatment Note PT-OP-A Visit Information Start: 08/19/17 08:09 Freq: Status: Active Protocol: Document 06/29/18 15:15 DCW (Rec: 06/29/18 16:01 DCW [id number]) Out-Patient Physical Therapy Visit Information Visit Information Visit Type Treatment Note Visit Start Time 15:15 Visit Stop Time 16:00 Total Visit Minutes 45 Number of FACULTY PHYSICIAN Visits 0 PT-OP-C Subjective Start: 08/19/17 08:09 Freq: Status: Active Protocol: Document 06/29/18 15:15 DCW (Rec: 06/29/18 16:01 DCW [id number]) OP-PT Subjective Patient Comments Patient Comments Pt reports no pain today. PT-OP-E Functional Tests Start: 01/21/18 14:41 Freq: Status: Active Protocol: Document 05/25/18 15:15 DCW (Rec: 05/25/18 15:58 DCW [id number]) Functional Tests 6 Minute Walk Test Distance 904 Device Used AFO Dynamic Gait Index (DGI) Score 18/24 DGI Impairment Rating 20 to <40% Impaired (Score 15- 19) Functional Gait Assessment Score 18/30 Functional Gait Assessment Impairment 40 to <60% Impaired (Score 13- Rating 18) PT-OP-F Manual Assessment Start: 02/12/18 13:26 Freq: Status: Active Protocol: Document 05/25/18 15:15 DCW (Rec: 05/25/18 17:56 DCW [id number]) Manual Assessments Joint Mobility Assessment Joint Mobility Assessment Pt no longer experiencing ankle pain/limitations PT-OP-G Mobility & Gait Start: 01/21/18 14:41 Freq: Status: Active Protocol: Document 05/25/18 15:15 DCW (Rec: 05/25/18 17:56 DCW [id number]) OP Mobility Evaluation Transfers Floor Transfers Modified independent with SPC Functional Movements Other Functional Movements Stepping over 6 object: Independent leading with both left or right foot PT-OP-Q Treatments Start: 08/19/17 08:09 Freq: Status: Active Protocol: Document 06/29/18 15:15 DCW (Rec: 06/29/18 16:01 DCW [id number]) Cardio Equipment Elliptical Duration (Minutes) 5 Resistance 5 Gym Equipment Shuttle Balance Red Details Wide DONNA, Staggered Stance Comments EO/EC, ball toss /c perturbations, tandem stance along fulcrum Therapeutic Exercises Standing Exercises 2 Standing Exercise Name Step-ups Side bilateral Equipment Used 8 step Neuro Re-Education Treatment Balance Activities 7 Details SLS /c ball bounce Comments R SLS, bounce rubber ball from R to L hand PT-OP-R Modalities Start: 08/19/17 08:09 Freq: Status: Active Protocol: Document 12/31/17 13:33 LRN (Rec: 12/31/17 14:41 LRN [id number]) Electric Stimulation Electric Stimulation Nigerian Stimulation Duration (Minutes) 10 Intensity 39 Contraction Type Normal High/Low High Cycle 10/10 Patient Position Sitting Comments Electrodes on R anterior tib for ankle DF PT-OP-S Aquatic Treatment Start: 09/27/17 14:34 Freq: Status: Active Protocol: Document 11/22/17 13:00 TMS (Rec: 11/22/17 16:26 TMS [email or web address]) Aquatics Treatment Pool Entry/Exit Pool Entry/Exit Method Stairs Assistance Standby Assistance Water Walking Forwards Water Level Chest Level Level of Assistance Standby Assistance Comments Cues, with and without fins. Lower Extremity Exercises 5 Details Single leg standing Body Position Standing Water Level Chest Level 1 Details Right hip AB/AD. Body Position Standing Water Level Chest Level Lower Extremity Stretches 1 Details Gastroc stretching Body Position Standing Water Level Waist Level Comments Manual assist Upper Extremity Stretches 1 Details Horizontal AB/AD Body Position Standing Water Level Chest Level Equipment Large resistance barbells Reps/Duration x 15 reps Swim Strokes Flutter Equipment Fins Kickboard Comments Min-A Backstroke Other Equipment Used With and without fins Comments 5 minutes PT-OP-T Assessment and Plan Start: 08/19/17 08:09 Freq: Status: Active Protocol: Document 06/29/18 15:15 DCW (Rec: 06/29/18 16:01 DCW [id number]) Physical Therapy Assessment Impairments Impairments Balance Functional Activities Functional Mobility Gait Strength Tone Goals Five Impairment strength Custodial Goal (LTG) Patient will improve his LE strength to be able to step over a 6 object independently and safely with either LE without catching foot or losing balance LTG Duration MET Four Impairment functional mobility Custodial Goal (LTG) Patient able to perform car transfers and floor transfers with ease, without loss of balance to improve his safety and quality of life LTG Duration MET Three Impairment Patient education Custodial Goal (LTG) Progress HEP, patient to be independent and compliant with updated HEP as his function continues to improve LTG Duration MET Two Impairment balance Custodial Goal (LTG) Improve Dynamic gait index to 19 or greater out of 24 for decreased fall risk LTG Duration 06/21/18 - Improving () One Impairment functional mobility/gait Farrowing Manager Goal (LTG) Patient to improve 6 min walk test test to 1200 feet. LTG Duration 06/21/18 Assessment Summary Assessment Pt tolerated addition of new exercises well, particularly tandem stance on Shuttle Balance. Physical Therapy Plan Frequency and Duration Frequency of Treatment 2x/Week Duration of Treatment 3 months Plan of Care Start Date 05/25/18 Plan of Care End Date 08/22/18 Therapeutic Interventions Therapeutic Interventions Aquatic Therapy Balance Training Gait Training Home Exercise Program Neuromuscular Re-education Patient/Caregiver Education Self-Care/Home Management Therapeutic Activities Therapeutic Exercises Next Visit Focus/Plan Next Note Type Treatment Note Next Visit Plan prog. as tolerated with mobility and gait toward unstable surfaces
--- NOTE | 2018-07-06 16:02 | PT.OTN ---
Current Diagnoses Spastic hemiplegia affecting right dominant side (07/06/18) Cerebral infarction due to unspecified occlusion or stenosis of left middle cerebral artery (07/06/18) Difficulty in walking, not elsewhere classified (07/06/18) Repeated falls (07/06/18) Apraxia (07/06/18) Weakness (07/06/18) Physical Therapy Treatment Note PT-OP-A Visit Information Start: 08/19/17 08:09 Freq: Status: Active Protocol: Document 07/06/18 15:15 DCW (Rec: 07/06/18 16:01 DCW [id number]) Out-Patient Physical Therapy Visit Information Visit Information Visit Type Treatment Note Visit Start Time 15:15 Visit Stop Time 16:00 Total Visit Minutes 45 Number of PRODUCTION TEAM MEMBER Visits 0 PT-OP-C Subjective Start: 08/19/17 08:09 Freq: Status: Active Protocol: Document 07/06/18 15:15 DCW (Rec: 07/06/18 16:01 DCW [id number]) OP-PT Subjective Patient Comments Patient Comments Pt notes his ankle has been hurting more after spending more time out in his garden PT-OP-E Functional Tests Start: 01/21/18 14:41 Freq: Status: Active Protocol: Document 05/25/18 15:15 DCW (Rec: 05/25/18 15:58 DCW [id number]) Functional Tests 6 Minute Walk Test Distance 904 Device Used AFO Dynamic Gait Index (DGI) Score 18/24 DGI Impairment Rating 20 to <40% Impaired (Score 15- 19) Functional Gait Assessment Score 18/30 Functional Gait Assessment Impairment 40 to <60% Impaired (Score 13- Rating 18) PT-OP-F Manual Assessment Start: 02/12/18 13:26 Freq: Status: Active Protocol: Document 05/25/18 15:15 DCW (Rec: 05/25/18 17:56 DCW [id number]) Manual Assessments Joint Mobility Assessment Joint Mobility Assessment Pt no longer experiencing ankle pain/limitations PT-OP-G Mobility & Gait Start: 01/21/18 14:41 Freq: Status: Active Protocol: Document 05/25/18 15:15 DCW (Rec: 05/25/18 17:56 DCW [id number]) OP Mobility Evaluation Transfers Floor Transfers Modified independent with SPC Functional Movements Other Functional Movements Stepping over 6 object: Independent leading with both left or right foot PT-OP-Q Treatments Start: 08/19/17 08:09 Freq: Status: Active Protocol: Document 07/06/18 15:15 DCW (Rec: 07/06/18 16:01 DCW [id number]) Cardio Equipment Elliptical Duration (Minutes) 3 Resistance 5 Gym Equipment Shuttle Balance Red Details Wide DONNA, Staggered Stance Comments EO/EC, ball toss /c perturbations, tandem stance along fulcrum Neuro Re-Education Treatment Balance Activities 7 Details SLS /c ball toss Comments R SLS, bounce rubber ball from R hand to bucket 5 Details Tandem Stance Comments Reaching for target 2 Details Tandem Ambulation Comments Forward/Backward PT-OP-R Modalities Start: 08/19/17 08:09 Freq: Status: Active Protocol: Document 12/31/17 13:33 LRN (Rec: 12/31/17 14:41 LRN [id number]) Electric Stimulation Electric Stimulation Afghan Stimulation Duration (Minutes) 10 Intensity 39 Contraction Type Normal High/Low High Cycle 10/10 Patient Position Sitting Comments Electrodes on R anterior tib for ankle DF PT-OP-S Aquatic Treatment Start: 09/27/17 14:34 Freq: Status: Active Protocol: Document 11/22/17 13:00 TMS (Rec: 11/22/17 16:26 TMS [id number]) Aquatics Treatment Pool Entry/Exit Pool Entry/Exit Method Stairs Assistance Standby Assistance Water Walking Forwards Water Level Chest Level Level of Assistance Standby Assistance Comments Cues, with and without fins. Lower Extremity Exercises 5 Details Single leg standing Body Position Standing Water Level Chest Level 1 Details Right hip AB/AD. Body Position Standing Water Level Chest Level Lower Extremity Stretches 1 Details Gastroc stretching Body Position Standing Water Level Waist Level Comments Manual assist Upper Extremity Stretches 1 Details Horizontal AB/AD Body Position Standing Water Level Chest Level Equipment Large resistance barbells Reps/Duration x 15 reps Swim Strokes Flutter Equipment Fins Kickboard Comments Min-A Backstroke Other Equipment Used With and without fins Comments 5 minutes PT-OP-T Assessment and Plan Start: 08/19/17 08:09 Freq: Status: Active Protocol: Document 07/06/18 15:15 DCW (Rec: 07/06/18 16:01 DCW [id number]) Physical Therapy Assessment Impairments Impairments Balance Functional Activities Functional Mobility Gait Strength Tone Goals Five Impairment strength Correction Goal (LTG) Patient will improve his LE strength to be able to step over a 6 object independently and safely with either LE without catching foot or losing balance LTG Duration MET Four Impairment functional mobility Correction Goal (LTG) Patient able to perform car transfers and floor transfers with ease, without loss of balance to improve his safety and quality of life LTG Duration MET Three Impairment Patient education Correction Goal (LTG) Progress HEP, patient to be independent and compliant with updated HEP as his function continues to improve LTG Duration MET Two Impairment balance Mixer Lever Operator Goal (LTG) Improve Dynamic gait index to 19 or greater out of 24 for decreased fall risk LTG Duration 06/21/18 - Improving () One Impairment functional mobility/gait Correction Goal (LTG) Patient to improve 6 min walk test test to 1200 feet. LTG Duration 06/21/18 Assessment Summary Assessment Pt complained of mild stiffness/tenderness in right pelvis when in tandem stance with right leg forward, but overall was able to perform activity with no problems. Physical Therapy Plan Frequency and Duration Frequency of Treatment 2x/Week Duration of Treatment 3 months Plan of Care Start Date 05/25/18 Plan of Care End Date 08/22/18 Therapeutic Interventions Therapeutic Interventions Aquatic Therapy Balance Training Gait Training Home Exercise Program Neuromuscular Re-education Patient/Caregiver Education Self-Care/Home Management Therapeutic Activities Therapeutic Exercises Next Visit Focus/Plan Next Note Type Treatment Note Next Visit Plan prog. as tolerated with mobility and gait toward unstable surfaces
--- NOTE | 2018-07-13 16:04 | PT.OTN ---
Current Diagnoses Spastic hemiplegia affecting right dominant side (07/13/18) Cerebral infarction due to unspecified occlusion or stenosis of left middle cerebral artery (07/13/18) Difficulty in walking, not elsewhere classified (07/13/18) Repeated falls (07/13/18) Apraxia (07/13/18) Weakness (07/13/18) Physical Therapy Treatment Note PT-OP-A Visit Information Start: 08/19/17 08:09 Freq: Status: Active Protocol: Document 07/13/18 15:20 DCW (Rec: 07/13/18 16:04 DCW [id number]) Out-Patient Physical Therapy Visit Information Visit Information Visit Type Treatment Note Visit Start Time 15:20 Visit Stop Time 16:00 Total Visit Minutes 40 Number of WINE MASTER Visits 0 PT-OP-C Subjective Start: 08/19/17 08:09 Freq: Status: Active Protocol: Document 07/13/18 15:20 DCW (Rec: 07/13/18 16:04 DCW [id number]) OP-PT Subjective Patient Comments Patient Comments Pt reports he is feeling pretty good, he has been out working in his garden every day. PT-OP-E Functional Tests Start: 01/21/18 14:41 Freq: Status: Active Protocol: Document 05/25/18 15:15 DCW (Rec: 05/25/18 15:58 DCW [id number]) Functional Tests 6 Minute Walk Test Distance 904 Device Used AFO Dynamic Gait Index (DGI) Score 18/24 DGI Impairment Rating 20 to <40% Impaired (Score 15- 19) Functional Gait Assessment Score 18/30 Functional Gait Assessment Impairment 40 to <60% Impaired (Score 13- Rating 18) PT-OP-F Manual Assessment Start: 02/12/18 13:26 Freq: Status: Active Protocol: Document 05/25/18 15:15 DCW (Rec: 05/25/18 17:56 DCW [id number]) Manual Assessments Joint Mobility Assessment Joint Mobility Assessment Pt no longer experiencing ankle pain/limitations PT-OP-G Mobility & Gait Start: 01/21/18 14:41 Freq: Status: Active Protocol: Document 05/25/18 15:15 DCW (Rec: 05/25/18 17:56 DCW [id number]) OP Mobility Evaluation Transfers Floor Transfers Modified independent with SPC Functional Movements Other Functional Movements Stepping over 6 object: Independent leading with both left or right foot PT-OP-Q Treatments Start: 08/19/17 08:09 Freq: Status: Active Protocol: Document 07/13/18 15:20 DCW (Rec: 07/13/18 16:04 DCW [id number]) Cardio Equipment Elliptical Duration (Minutes) 3 Resistance 5 Gym Equipment Shuttle Balance Red Details Wide DONNA, Staggered Stance Comments EO/EC, ball toss /c perturbations, tandem stance along fulcrum Manual Therapy Treatment Joint Mobilizations talocrural joint Joint R talocrural joint Direction A/P Grade II Body Position Supine Comments static and MWM/muscle activation into DF with light traction Neuro Re-Education Treatment Balance Activities 7 Details SLS /c ball toss Comments R SLS, bounce rubber ball from R hand to bucket PT-OP-R Modalities Start: 08/19/17 08:09 Freq: Status: Active Protocol: Document 12/31/17 13:33 LRN (Rec: 12/31/17 14:41 LRN [id number]) Electric Stimulation Electric Stimulation [place]i Stimulation Duration (Minutes) 10 Intensity 39 Contraction Type Normal High/Low High Cycle 10/10 Patient Position Sitting Comments Electrodes on R anterior tib for ankle DF PT-OP-S Aquatic Treatment Start: 09/27/17 14:34 Freq: Status: Active Protocol: Document 11/22/17 13:00 TMS (Rec: 11/22/17 16:26 TMS [id number]) Aquatics Treatment Pool Entry/Exit Pool Entry/Exit Method Stairs Assistance Standby Assistance Water Walking Forwards Water Level Chest Level Level of Assistance Standby Assistance Comments Cues, with and without fins. Lower Extremity Exercises 5 Details Single leg standing Body Position Standing Water Level Chest Level 1 Details Right hip AB/AD. Body Position Standing Water Level Chest Level Lower Extremity Stretches 1 Details Gastroc stretching Body Position Standing Water Level Waist Level Comments Manual assist Upper Extremity Stretches 1 Details Horizontal AB/AD Body Position Standing Water Level Chest Level Equipment Large resistance barbells Reps/Duration x 15 reps Swim Strokes Flutter Equipment Fins Kickboard Comments Min-A Backstroke Other Equipment Used With and without fins Comments 5 minutes PT-OP-T Assessment and Plan Start: 08/19/17 08:09 Freq: Status: Active Protocol: Document 07/13/18 15:20 DCW (Rec: 07/13/18 16:04 DCW [id number]) Physical Therapy Assessment Impairments Impairments Balance Functional Activities Functional Mobility Gait Strength Tone Goals Five Impairment strength [facility] Goal (LTG) Patient will improve his LE strength to be able to step over a 6 object independently and safely with either LE without catching foot or losing balance LTG Duration MET Four Impairment functional mobility [facility] Goal (LTG) Patient able to perform car transfers and floor transfers with ease, without loss of balance to improve his safety and quality of life LTG Duration MET Three Impairment Patient education [facility] Goal (LTG) Progress HEP, patient to be independent and compliant with updated HEP as his function continues to improve LTG Duration MET Two Impairment balance Molder Apprentice Goal (LTG) Improve Dynamic gait index to 19 or greater out of 24 for decreased fall risk LTG Duration 06/21/18 - Improving () One Impairment functional mobility/gait [facility] Goal (LTG) Patient to improve 6 min walk test test to 1200 feet. LTG Duration 06/21/18 Assessment Summary Assessment PT did well today with balance training, reported his ankle felt much better following his manual therapy. Physical Therapy Plan Frequency and Duration Frequency of Treatment 2x/Week Duration of Treatment 3 months Plan of Care Start Date 05/25/18 Plan of Care End Date 08/22/18 Therapeutic Interventions Therapeutic Interventions Aquatic Therapy Balance Training Gait Training Home Exercise Program Neuromuscular Re-education Patient/Caregiver Education Self-Care/Home Management Therapeutic Activities Therapeutic Exercises Next Visit Focus/Plan Next Note Type Treatment Note Next Visit Plan prog. as tolerated with mobility and gait toward unstable surfaces
--- NOTE | 2018-07-28 10:15 | PT.OTN ---
Current Diagnoses Spastic hemiplegia affecting right dominant side (07/27/18) Cerebral infarction due to unspecified occlusion or stenosis of left middle cerebral artery (07/27/18) Difficulty in walking, not elsewhere classified (07/27/18) Repeated falls (07/27/18) Apraxia (07/27/18) Weakness (07/27/18) Physical Therapy Treatment Note PT-OP-A Visit Information Start: 08/19/17 08:09 Freq: Status: Active Protocol: Document 07/27/18 13:15 SAK (Rec: 07/28/18 10:15 SAK [id number]) Out-Patient Physical Therapy Visit Information Visit Information Visit Type Treatment Note Visit Start Time 15:15 Visit Stop Time 16:00 Total Visit Minutes 45 Number of CLOTHESPIN MACHINE OPERATOR Visits 0 PT-OP-C Subjective Start: 08/19/17 08:09 Freq: Status: Active Protocol: Document 07/27/18 13:15 SAK (Rec: 07/28/18 10:15 SAK [id number]) OP-PT Subjective Patient Comments Patient Comments Patient reports he wants to work on walking straighter. PT-OP-E Functional Tests Start: 01/21/18 14:41 Freq: Status: Active Protocol: Document 05/25/18 15:15 DCW (Rec: 05/25/18 15:58 DCW [id number]) Functional Tests 6 Minute Walk Test Distance 904 Device Used AFO Dynamic Gait Index (DGI) Score 18/24 DGI Impairment Rating 20 to <40% Impaired (Score 15- 19) Functional Gait Assessment Score 18/30 Functional Gait Assessment Impairment 40 to <60% Impaired (Score 13- Rating 18) PT-OP-F Manual Assessment Start: 02/12/18 13:26 Freq: Status: Active Protocol: Document 05/25/18 15:15 DCW (Rec: 05/25/18 17:56 DCW [id number]) Manual Assessments Joint Mobility Assessment Joint Mobility Assessment Pt no longer experiencing ankle pain/limitations PT-OP-G Mobility & Gait Start: 01/21/18 14:41 Freq: Status: Active Protocol: Document 05/25/18 15:15 DCW (Rec: 05/25/18 17:56 DCW [id number]) OP Mobility Evaluation Transfers Floor Transfers Modified independent with SPC Functional Movements Other Functional Movements Stepping over 6 object: Independent leading with both left or right foot PT-OP-Q Treatments Start: 08/19/17 08:09 Freq: Status: Active Protocol: Document 07/27/18 13:15 SAK (Rec: 07/28/18 10:15 SAK [id number]) Cardio Equipment Elliptical Duration (Minutes) 5 Resistance 5 Other verbal and manual cues for right LE alignment Therapeutic Exercises Standing Exercises UE arm swing for gait Equipment Used mirror Comments emphasis on upright postural alignment and symmetrical UE use SLS Side bilateral Comments verbal and manual cues, mirror for visual feedback Gait Training Gait Activity sideways Device Used mirror Treatment Focus symmetry, alignment, increased stance time right Pre-gait steps fwd and back Device Used mirror Treatment Focus symmetry, alignment, increased stance time right 4 Description backward gait Level of Assistance SBA, cues Surface level Treatment Focus increased hip extension, symmetry Comments verbal and manual cues, visual feedback from mirror PT-OP-R Modalities Start: 08/19/17 08:09 Freq: Status: Active Protocol: Document 12/31/17 13:33 LRN (Rec: 12/31/17 14:41 LRN [id number]) Electric Stimulation Electric Stimulation [place] Stimulation Duration (Minutes) 10 Intensity 39 Contraction Type Normal High/Low High Cycle 10/10 Patient Position Sitting Comments Electrodes on R anterior tib for ankle DF PT-OP-S Aquatic Treatment Start: 09/27/17 14:34 Freq: Status: Active Protocol: Document 11/22/17 13:00 TMS (Rec: 11/22/17 16:26 TMS [id number]) Aquatics Treatment Pool Entry/Exit Pool Entry/Exit Method Stairs Assistance Standby Assistance Water Walking Forwards Water Level Chest Level Level of Assistance Standby Assistance Comments Cues, with and without fins. Lower Extremity Exercises 5 Details Single leg standing Body Position Standing Water Level Chest Level 1 Details Right hip AB/AD. Body Position Standing Water Level Chest Level Lower Extremity Stretches 1 Details Gastroc stretching Body Position Standing Water Level Waist Level Comments Manual assist Upper Extremity Stretches 1 Details Horizontal AB/AD Body Position Standing Water Level Chest Level Equipment Large resistance barbells Reps/Duration x 15 reps Swim Strokes Flutter Equipment Fins Kickboard Comments Min-A Backstroke Other Equipment Used With and without fins Comments 5 minutes PT-OP-T Assessment and Plan Start: 08/19/17 08:09 Freq: Status: Active Protocol: Document 07/27/18 13:15 LYNDA (Rec: 07/28/18 10:15 [facility] [id number]) Physical Therapy Assessment Impairments Impairments Balance Functional Activities Functional Mobility Gait Strength Tone Goals Five Impairment strength Fpc Goal (LTG) Patient will improve his LE strength to be able to step over a 6 object independently and safely with either LE without catching foot or losing balance LTG Duration MET Four Impairment functional mobility Fpc Goal (LTG) Patient able to perform car transfers and floor transfers with ease, without loss of balance to improve his safety and quality of life LTG Duration MET Three Impairment Patient education Regulatory Coordinator Goal (LTG) Progress HEP, patient to be independent and compliant with updated HEP as his function continues to improve LTG Duration MET Two Impairment balance Regulatory Coordinator Goal (LTG) Improve Dynamic gait index to 19 or greater out of 24 for decreased fall risk LTG Duration 06/21/18 - Improving () One Impairment functional mobility/gait Regulatory Coordinator Goal (LTG) Patient to improve 6 min walk test test to 1200 feet. LTG Duration 06/21/18 Assessment Summary Assessment due to patient request spent majority of treatment focused on pre-gait and gait exercises with much cueing and use of mirror for feedback. Patient highly motivated and attentive asking for verbal feedback. Improvement in right LE stance time, elizabeth UE use for swing, and trunk alignment noted with session. Physical Therapy Plan Frequency and Duration Frequency of Treatment 2x/Week Duration of Treatment 3 months Plan of Care Start Date 05/25/18 Plan of Care End Date 08/22/18 Therapeutic Interventions Therapeutic Interventions Aquatic Therapy Balance Training Gait Training Home Exercise Program Neuromuscular Re-education Patient/Caregiver Education Self-Care/Home Management Therapeutic Activities Therapeutic Exercises Next Visit Focus/Plan Next Note Type Treatment Note Next Visit Plan prog. as tolerated with mobility and gait toward unstable surfaces
--- NOTE | 2018-08-03 08:12 | PT.OTN ---
Current Diagnoses Spastic hemiplegia affecting right dominant side (08/03/18) Cerebral infarction due to unspecified occlusion or stenosis of left middle cerebral artery (08/03/18) Difficulty in walking, not elsewhere classified (08/03/18) Repeated falls (08/03/18) Apraxia (08/03/18) Weakness (08/03/18) Physical Therapy Treatment Note PT-OP-A Visit Information Start: 08/19/17 08:09 Freq: Status: Active Protocol: Document 08/04/18 08:07 SAK (Rec: 08/04/18 08:12 SAK [id number]) Out-Patient Physical Therapy Visit Information Visit Information Visit Type Treatment Note Visit Start Time 15:15 Visit Stop Time 16:00 Total Visit Minutes 45 Number of CORE INSPECTOR Visits 0 PT-OP-C Subjective Start: 08/19/17 08:09 Freq: Status: Active Protocol: Document 08/04/18 08:07 SAK (Rec: 08/04/18 08:12 SAK [id number]) OP-PT Subjective Patient Comments Patient Comments Reports last session helpful for his gait, working hard on walking with decreased compensation, has been working on SLS at home. Less time in garden due to the weather. PT-OP-E Functional Tests Start: 01/21/18 14:41 Freq: Status: Active Protocol: Document 05/25/18 15:15 DCW (Rec: 05/25/18 15:58 DCW [id number]) Functional Tests 6 Minute Walk Test Distance 904 Device Used AFO Dynamic Gait Index (DGI) Score 18/24 DGI Impairment Rating 20 to <40% Impaired (Score 15- 19) Functional Gait Assessment Score 18/30 Functional Gait Assessment Impairment 40 to <60% Impaired (Score 13- Rating 18) PT-OP-F Manual Assessment Start: 02/12/18 13:26 Freq: Status: Active Protocol: Document 05/25/18 15:15 DCW (Rec: 05/25/18 17:56 DCW [id number]) Manual Assessments Joint Mobility Assessment Joint Mobility Assessment Pt no longer experiencing ankle pain/limitations PT-OP-G Mobility & Gait Start: 01/21/18 14:41 Freq: Status: Active Protocol: Document 05/25/18 15:15 DCW (Rec: 05/25/18 17:56 DCW [id number]) OP Mobility Evaluation Transfers Floor Transfers Modified independent with SPC Functional Movements Other Functional Movements Stepping over 6 object: Independent leading with both left or right foot PT-OP-Q Treatments Start: 08/19/17 08:09 Freq: Status: Active Protocol: Document 08/04/18 08:07 SAK (Rec: 08/04/18 08:12 SAK [id number]) Cardio Equipment Elliptical Duration (Minutes) 6 Resistance 5 Other verbal and manual cues for right LE alignment Gym Equipment Shuttle Balance Red Details Wide DONNA, Staggered Stance Comments EO/EC, ball toss /c perturbations, tandem stance along fulcrum Therapeutic Exercises Standing Exercises step-overs Equipment Used over balance beam Reps/Minutes 5x ea LE UE arm swing for gait Equipment Used mirror Comments emphasis on upright postural alignment and symmetrical UE use SLS Side bilateral Comments verbal and manual cues, mirror for visual feedback Gait Training Gait Activity gait with mirror feedback, varying speed Treatment Focus dec compensatory patterns sideways Device Used mirror Treatment Focus symmetry, alignment, increased stance time right Pre-gait steps fwd and back Device Used mirror Treatment Focus symmetry, alignment, increased stance time right 4 Description backward gait Level of Assistance SBA, cues Surface level Treatment Focus increased hip extension, symmetry Comments verbal and manual cues, visual feedback from mirror Neuro Re-Education Treatment Balance Activities 7 Details SLS /c ball toss Comments R SLS, bounce rubber ball from R hand to bucket PT-OP-R Modalities Start: 08/19/17 08:09 Freq: Status: Active Protocol: Document 12/31/17 13:33 LRN (Rec: 12/31/17 14:41 LRN [id number]) Electric Stimulation Electric Stimulation Citizen [place] Stimulation Duration (Minutes) 10 Intensity 39 Contraction Type Normal High/Low High Cycle 10/10 Patient Position Sitting Comments Electrodes on R anterior tib for ankle DF PT-OP-S Aquatic Treatment Start: 09/27/17 14:34 Freq: Status: Active Protocol: Document 11/22/17 13:00 TMS (Rec: 11/22/17 16:26 TMS [id number]) Aquatics Treatment Pool Entry/Exit Pool Entry/Exit Method Stairs Assistance Standby Assistance Water Walking Forwards Water Level Chest Level Level of Assistance Standby Assistance Comments Cues, with and without fins. Lower Extremity Exercises 5 Details Single leg standing Body Position Standing Water Level Chest Level 1 Details Right hip AB/AD. Body Position Standing Water Level Chest Level Lower Extremity Stretches 1 Details Gastroc stretching Body Position Standing Water Level Waist Level Comments Manual assist Upper Extremity Stretches 1 Details Horizontal AB/AD Body Position Standing Water Level Chest Level Equipment Large resistance barbells Reps/Duration x 15 reps Swim Strokes Flutter Equipment Fins Kickboard Comments Min-A Backstroke Other Equipment Used With and without fins Comments 5 minutes PT-OP-T Assessment and Plan Start: 08/19/17 08:09 Freq: Status: Active Protocol: Document 08/04/18 08:07 LYNDA (Rec: 08/04/18 08:12 [facility] [id number]) Physical Therapy Assessment Impairments Impairments Balance Functional Activities Functional Mobility Gait Strength Tone Goals Five Impairment strength Ready To Wear Department Manager Goal (LTG) Patient will improve his LE strength to be able to step over a 6 object independently and safely with either LE without catching foot or losing balance LTG Duration MET Four Impairment functional mobility Senior Care Goal (LTG) Patient able to perform car transfers and floor transfers with ease, without loss of balance to improve his safety and quality of life LTG Duration MET Three Impairment Patient education Ready To Wear Department Manager Goal (LTG) Progress HEP, patient to be independent and compliant with updated HEP as his function continues to improve LTG Duration MET Two Impairment balance Senior Care Goal (LTG) Improve Dynamic gait index to 19 or greater out of 24 for decreased fall risk LTG Duration 06/21/18 - Improving () One Impairment functional mobility/gait Senior Care Goal (LTG) Patient to improve 6 min walk test test to 1200 feet. LTG Duration 06/21/18 Assessment Summary Assessment Patient demonstrating improvement in ability to activate gluteals and increase weight shift to right LE with gait. Physical Therapy Plan Frequency and Duration Frequency of Treatment 2x/Week Duration of Treatment 3 months Plan of Care Start Date 05/25/18 Plan of Care End Date 08/22/18 Therapeutic Interventions Therapeutic Interventions Aquatic Therapy Balance Training Gait Training Home Exercise Program Neuromuscular Re-education Patient/Caregiver Education Self-Care/Home Management Therapeutic Activities Therapeutic Exercises Next Visit Focus/Plan Next Note Type Treatment Note Next Visit Plan prog. as tolerated with mobility and gait toward unstable surfaces
--- NOTE | 2018-08-10 16:26 | PT.OTN ---
Current Diagnoses Spastic hemiplegia affecting right dominant side (08/10/18) Cerebral infarction due to unspecified occlusion or stenosis of left middle cerebral artery (08/10/18) Difficulty in walking, not elsewhere classified (08/10/18) Repeated falls (08/10/18) Apraxia (08/10/18) Weakness (08/10/18) Physical Therapy Treatment Note PT-OP-A Visit Information Start: 08/19/17 08:09 Freq: Status: Active Protocol: Document 08/10/18 15:15 SAK (Rec: 08/10/18 16:26 SAK [id number]) Out-Patient Physical Therapy Visit Information Visit Information Visit Type Treatment Note Visit Start Time 15:15 Visit Stop Time 16:05 Total Visit Minutes 50 Number of SUBSTATION OPERATOR Visits 0 PT-OP-C Subjective Start: 08/19/17 08:09 Freq: Status: Active Protocol: Document 08/10/18 15:15 SAK (Rec: 08/10/18 16:26 SAK [id number]) OP-PT Subjective Patient Comments Patient Comments Walking around entire yard without cane for first time. Has stopped using cane in the house this past week. Wants to work on stair ambulation; states he has difficulty at home especially descending. PT-OP-E Functional Tests Start: 01/21/18 14:41 Freq: Status: Active Protocol: Document 05/25/18 15:15 DCW (Rec: 05/25/18 15:58 DCW [id number]) Functional Tests 6 Minute Walk Test Distance 904 Device Used AFO Dynamic Gait Index (DGI) Score DGI Impairment Rating 20 to <40% Impaired (Score 15- 19) Functional Gait Assessment Score 18/ Functional Gait Assessment Impairment 40 to <60% Impaired (Score 13- Rating 18) PT-OP-F Manual Assessment Start: 02/12/18 13:26 Freq: Status: Active Protocol: Document 05/25/18 15:15 DCW (Rec: 05/25/18 17:56 DCW [id number]) Manual Assessments Joint Mobility Assessment Joint Mobility Assessment Pt no longer experiencing ankle pain/limitations PT-OP-G Mobility & Gait Start: 01/21/18 14:41 Freq: Status: Active Protocol: Document 05/25/18 15:15 DCW (Rec: 05/25/18 17:56 DCW [id number]) OP Mobility Evaluation Transfers Floor Transfers Modified independent with SPC Functional Movements Other Functional Movements Stepping over 6 object: Independent leading with both left or right foot PT-OP-Q Treatments Start: 08/19/17 08:09 Freq: Status: Active Protocol: Document 08/10/18 15:15 SAK (Rec: 08/10/18 16:26 SAK [id number]) Therapeutic Exercises Standing Exercises squats Reps/Minutes 10x Comments mirror for visual feedback step-ups Equipment Used 6 stairs Comments 5x2, no UE support Gait Training Gait Activity gait with mirror feedback, varying speed Treatment Focus dec compensatory patterns uneven surfaces Level of Assistance CGA to mod assist for bal Surface 4, 8 box, hurdles, foam pods , foam discs Distance/Duration 10 min 6 Description up/down 4in steps l Treatment Focus min UE use Comments No UE use ascend, none to mod with descend 4 Description backward gait Level of Assistance SBA, cues Surface level Treatment Focus increased hip extension, symmetry Comments verbal and manual cues, visual feedback from mirror Manual Therapy Treatment Joint Mobilizations talocrural joint Joint R talocrural joint Direction A/P Grade II Body Position Supine Comments static and MWM/muscle activation into DF with light traction PT-OP-R Modalities Start: 08/19/17 08:09 Freq: Status: Active Protocol: Document 12/31/17 13:33 LRN (Rec: 12/31/17 14:41 LRN [id number]) Electric Stimulation Electric Stimulation Prydeinig Stimulation Duration (Minutes) 10 Intensity 39 Contraction Type Normal High/Low High Cycle 10/10 Patient Position Sitting Comments Electrodes on R anterior tib for ankle DF PT-OP-S Aquatic Treatment Start: 09/27/17 14:34 Freq: Status: Active Protocol: Document 11/22/17 13:00 TMS (Rec: 11/22/17 16:26 TMS [id number]) Aquatics Treatment Pool Entry/Exit Pool Entry/Exit Method Stairs Assistance Standby Assistance Water Walking Forwards Water Level Chest Level Level of Assistance Standby Assistance Comments Cues, with and without fins. Lower Extremity Exercises 5 Details Single leg standing Body Position Standing Water Level Chest Level 1 Details Right hip AB/AD. Body Position Standing Water Level Chest Level Lower Extremity Stretches 1 Details Gastroc stretching Body Position Standing Water Level Waist Level Comments Manual assist Upper Extremity Stretches 1 Details Horizontal AB/AD Body Position Standing Water Level Chest Level Equipment Large resistance barbells Reps/Duration x 15 reps Swim Strokes Flutter Equipment Fins Kickboard Comments Min-A Backstroke Other Equipment Used With and without fins Comments 5 minutes PT-OP-T Assessment and Plan Start: 08/19/17 08:09 Freq: Status: Active Protocol: Document 08/10/18 15:15 [facility] (Rec: 08/10/18 16:26 [facility] [id number]) Physical Therapy Assessment Goals Five Impairment strength Correction Goal (LTG) Patient will improve his LE strength to be able to step over a 6 object independently and safely with either LE without catching foot or losing balance LTG Duration MET Four Impairment functional mobility Correction Goal (LTG) Patient able to perform car transfers and floor transfers with ease, without loss of balance to improve his safety and quality of life LTG Duration MET Three Impairment Patient education Clinical Rehab Specialist Goal (LTG) Progress HEP, patient to be independent and compliant with updated HEP as his function continues to improve LTG Duration MET Two Impairment balance Clinical Rehab Specialist Goal (LTG) Improve Dynamic gait index to 19 or greater out of 24 for decreased fall risk LTG Duration 06/21/18 - Improving () One Impairment functional mobility/gait Correction Goal (LTG) Patient to improve 6 min walk test test to 1200 feet. LTG Duration 06/21/18 Assessment Summary Assessment Some right foot pain with descending 4 stairs after 5x. No pain with stepping backward with step-ups at end of session after HC stretch and manual mobilization. Physical Therapy Plan Frequency and Duration Frequency of Treatment 2x/Week Duration of Treatment 3 months Plan of Care Start Date 05/25/18 Plan of Care End Date 08/22/18 Therapeutic Interventions Therapeutic Interventions Aquatic Therapy Balance Training Gait Training Home Exercise Program Neuromuscular Re-education Patient/Caregiver Education Self-Care/Home Management Therapeutic Activities Therapeutic Exercises Next Visit Focus/Plan Next Note Type Treatment Note Next Visit Plan Continue PT to progress with functional gait and balance especially on uneven surfaces.
--- NOTE | 2018-08-22 17:16 | PT.OTN ---
Current Diagnoses Spastic hemiplegia affecting right dominant side (08/22/18) Cerebral infarction due to unspecified occlusion or stenosis of left middle cerebral artery (08/22/18) Difficulty in walking, not elsewhere classified (08/22/18) Repeated falls (08/22/18) Apraxia (08/22/18) Weakness (08/22/18) Physical Therapy Treatment Note PT-OP-A Visit Information Start: 08/19/17 08:09 Freq: Status: Active Protocol: Document 08/22/18 08:23 SAK (Rec: 08/22/18 08:52 SAK [id number]) Out-Patient Physical Therapy Visit Information Visit Information Visit Type Treatment Note Visit Start Time 08:15 Visit Stop Time 09:00 Total Visit Minutes 51 Number of SURGICAL SCRUB TECHNOLOGIST Visits 0 PT-OP-C Subjective Start: 08/19/17 08:09 Freq: Status: Active Protocol: Document 08/22/18 08:23 SAK (Rec: 08/22/18 08:52 SAK [id number]) OP-PT Subjective Patient Comments Patient Comments Bought new soft ankle brace online, allows increased mobility; reports he is being careful not to let his ankle roll. PT-OP-E Functional Tests Start: 01/21/18 14:41 Freq: Status: Active Protocol: Document 05/25/18 15:15 DCW (Rec: 05/25/18 15:58 DCW [id number]) Functional Tests 6 Minute Walk Test Distance 904 Device Used AFO Dynamic Gait Index (DGI) Score 18/24 DGI Impairment Rating 20 to <40% Impaired (Score 15- 19) Functional Gait Assessment Score 18/30 Functional Gait Assessment Impairment 40 to <60% Impaired (Score 13- Rating 18) PT-OP-F Manual Assessment Start: 02/12/18 13:26 Freq: Status: Active Protocol: Document 05/25/18 15:15 DCW (Rec: 05/25/18 17:56 DCW [id number]) Manual Assessments Joint Mobility Assessment Joint Mobility Assessment Pt no longer experiencing ankle pain/limitations PT-OP-G Mobility & Gait Start: 01/21/18 14:41 Freq: Status: Active Protocol: Document 05/25/18 15:15 DCW (Rec: 05/25/18 17:56 DCW [id number]) OP Mobility Evaluation Transfers Floor Transfers Modified independent with SPC Functional Movements Other Functional Movements Stepping over 6 object: Independent leading with both left or right foot PT-OP-Q Treatments Start: 08/19/17 08:09 Freq: Status: Active Protocol: Document 08/22/18 08:23 SAK (Rec: 08/22/18 08:52 SAK [id number]) Cardio Equipment Elliptical Duration (Minutes) 4 Resistance 5 Other verbal and manual cues for right LE alignment Bicycle (Upright) Duration (Minutes) 5 Resistance 9 Seat Position 6 Other soft brace Gym Equipment Shuttle Balance Red Details Wide DONNA, Staggered Stance Comments EO/EC, ball toss /c perturbations, tandem stance along fulcrum Therapeutic Exercises Standing Exercises squats Resistance L1 TB around lower thighs to facilitation hip ER Reps/Minutes 10x Comments mirror for visual feedback Gait Training Gait Activity uneven surfaces Level of Assistance CGA to mod assist for bal Surface 4, 8 box, hurdles, foam pods , foam discs Distance/Duration 10 min Comments trial balance beam but patient too fearful without solid brace. 6 Description up/down 4in steps l Treatment Focus min UE use Comments No UE use ascend, none to mod with descend PT-OP-R Modalities Start: 08/19/17 08:09 Freq: Status: Active Protocol: Document 12/31/17 13:33 LRN (Rec: 12/31/17 14:41 LRN [id number]) Electric Stimulation Electric Stimulation [place] Stimulation Duration (Minutes) 10 Intensity 39 Contraction Type Normal High/Low High Cycle 10/10 Patient Position Sitting Comments Electrodes on R anterior tib for ankle DF PT-OP-S Aquatic Treatment Start: 09/27/17 14:34 Freq: Status: Active Protocol: Document 11/22/17 13:00 TMS (Rec: 11/22/17 16:26 TMS [id number]) Aquatics Treatment Pool Entry/Exit Pool Entry/Exit Method Stairs Assistance Standby Assistance Water Walking Forwards Water Level Chest Level Level of Assistance Standby Assistance Comments Cues, with and without fins. Lower Extremity Exercises 5 Details Single leg standing Body Position Standing Water Level Chest Level 1 Details Right hip AB/AD. Body Position Standing Water Level Chest Level Lower Extremity Stretches 1 Details Gastroc stretching Body Position Standing Water Level Waist Level Comments Manual assist Upper Extremity Stretches 1 Details Horizontal AB/AD Body Position Standing Water Level Chest Level Equipment Large resistance barbells Reps/Duration x 15 reps Swim Strokes Flutter Equipment Fins Kickboard Comments Min-A Backstroke Other Equipment Used With and without fins Comments 5 minutes PT-OP-T Assessment and Plan Start: 08/19/17 08:09 Freq: Status: Active Protocol: Document 08/22/18 08:23 LYNDA (Rec: 08/22/18 08:52 [facility] [id number]) Physical Therapy Assessment Impairments Impairments Balance Functional Activities Functional Mobility Gait Strength Tone Goals Seven Impairment gait mechanics Rip Machine Operator Goal (LTG) Josiah will demonstrate 50% decrease in compensatory strategies in his gait which include excessive right hip inversion, excessive right trunk sidebending. LTG Duration 11/22/18 Six Impairment gait Rip Machine Operator Goal (LTG) Josiah will be able to safely walk on uneven surfaces with use of soft ankle brace instead of his metal AFO including in his garden. LTG Duration 11/22/18 Five Impairment strength Rip Machine Operator Goal (LTG) Patient will improve his LE strength to be able to step over a 6 object independently and safely with either LE without catching foot or losing balance LTG Duration MET Four Impairment functional mobility Penitentiary Goal (LTG) Patient able to perform car transfers and floor transfers with ease, without loss of balance to improve his safety and quality of life LTG Duration MET Three Impairment Patient education Rip Machine Operator Goal (LTG) Progress HEP, patient to be independent and compliant with updated HEP as his function continues to improve LTG Duration MET Two Impairment balance Rip Machine Operator Goal (LTG) Improve Dynamic gait index to 19 or greater out of 24 for decreased fall risk 08/22/18: . new goal of LTG Duration 11/22/18 One Impairment functional mobility/gait Rip Machine Operator Goal (LTG) Patient to improve 6 min walk test test to 1200 feet. 08/22/18: goal progress at 1025 ft LTG Duration 11/22/18 Assessment Summary Assessment Josiah continues to benefit from physical therapy for functional strengthening, gait training, balance training. He is trying to progress to use of soft ankle brace for gait on all surfaces. He remains highly motivated and has good potential for further improvements in his function. Physical Therapy Plan Frequency and Duration Frequency of Treatment 2x/Week Duration of Treatment 3 months Plan of Care Start Date 08/22/18 Plan of Care End Date 11/22/18 Therapeutic Interventions Therapeutic Interventions Aquatic Therapy Balance Training Gait Training Home Exercise Program Neuromuscular Re-education Patient/Caregiver Education Self-Care/Home Management Therapeutic Activities Therapeutic Exercises Next Visit Focus/Plan Next Note Type Treatment Note Next Visit Plan Continue PT to progress with functional gait and balance especially on uneven surfaces.
--- NOTE | 2018-08-22 17:17 | PT.OPPOC ---
Current Diagnoses Spastic hemiplegia affecting right dominant side (08/22/18) Cerebral infarction due to unspecified occlusion or stenosis of left middle cerebral artery (08/22/18) Difficulty in walking, not elsewhere classified (08/22/18) Repeated falls (08/22/18) Apraxia (08/22/18) Weakness (08/22/18) Provider Visit Care Team Role Provider Type Halina Olmstead MD Family Provider Physician Primary Care Provider Specialty: Medical Address: [address] [place] [address], [place], [phone] Email: Marietta Lawler Attending Provider Non-Staff Specialty: Medical Address: [address] [place] [address], [id number] Email: Plan Of Care PT-OP-T Assessment and Plan Start: 08/19/17 08:09 Freq: Status: Active Protocol: Document 08/22/18 08:23 [facility] (Rec: 08/22/18 08:52 [facility] [id number]) Physical Therapy Assessment Impairments Impairments Balance Functional Activities Functional Mobility Gait Strength Tone Goals Seven Impairment gait mechanics Assisted Goal (LTG) Josiah will demonstrate 50% decrease in compensatory strategies in his gait which include excessive right hip inversion, excessive right trunk sidebending. LTG Duration 11/22/18 Six Impairment gait Director Of Sustainability Programs Goal (LTG) Josiah will be able to safely walk on uneven surfaces with use of soft ankle brace instead of his metal AFO including in his garden. LTG Duration 11/22/18 Five Impairment strength Assisted Goal (LTG) Patient will improve his LE strength to be able to step over a 6 object independently and safely with either LE without catching foot or losing balance LTG Duration MET Four Impairment functional mobility Assisted Goal (LTG) Patient able to perform car transfers and floor transfers with ease, without loss of balance to improve his safety and quality of life LTG Duration MET Three Impairment Patient education Assisted Goal (LTG) Progress HEP, patient to be independent and compliant with updated HEP as his function continues to improve LTG Duration MET Two Impairment balance Director Of Sustainability Programs Goal (LTG) Improve Dynamic gait index to 19 or greater out of 24 for decreased fall risk 08/22/18: . new goal of LTG Duration 11/22/18 One Impairment functional mobility/gait Director Of Sustainability Programs Goal (LTG) Patient to improve 6 min walk test test to 1200 feet. 08/22/18: goal progress at 1025 ft LTG Duration 11/22/18 Assessment Summary Assessment Josiah continues to benefit from physical therapy for functional strengthening, gait training, balance training. He is trying to progress to use of soft ankle brace for gait on all surfaces. He remains highly motivated and has good potential for further improvements in his function. Physical Therapy Plan Frequency and Duration Frequency of Treatment 2x/Week Duration of Treatment 3 months Plan of Care Start Date 08/22/18 Plan of Care End Date 11/22/18 Therapeutic Interventions Therapeutic Interventions Aquatic Therapy Balance Training Gait Training Home Exercise Program Neuromuscular Re-education Patient/Caregiver Education Self-Care/Home Management Therapeutic Activities Therapeutic Exercises Next Visit Focus/Plan Next Note Type Treatment Note Next Visit Plan Continue PT to progress with functional gait and balance especially on uneven surfaces. Plan of Care Dates Plan of Care Start Date 08/22/18 Plan of Care End Date 11/22/18 Please Sign and Return: I have reviewed this Plan of Care and certify that the skilled therapy services above are required to meet the patient?s needs. Physician Signature Date Printed Name and Credentials Clinical Instructor Signature Printed Name and Credentials
--- NOTE | 2018-09-08 16:51 | PT.OTN ---
Current Diagnoses Spastic hemiplegia affecting right dominant side (09/08/18) Cerebral infarction due to unspecified occlusion or stenosis of left middle cerebral artery (09/08/18) Difficulty in walking, not elsewhere classified (09/08/18) Repeated falls (09/08/18) Apraxia (09/08/18) Weakness (09/08/18) Physical Therapy Treatment Note PT-OP-A Visit Information Start: 08/19/17 08:09 Freq: Status: Active Protocol: Document 09/08/18 10:33 LRN (Rec: 09/08/18 11:19 LRN [id number]) Out-Patient Physical Therapy Visit Information Visit Information Visit Type Treatment Note Visit Start Time 10:33 Visit Stop Time 11:17 Total Visit Minutes 44 Number of AMMUNITION SPECIALIST Visits 0 PT-OP-C Subjective Start: 08/19/17 08:09 Freq: Status: Active Protocol: Document 09/08/18 10:33 LRN (Rec: 09/08/18 11:19 LRN [id number]) OP-PT Subjective Patient Comments Patient Comments Prefers soft ankle brace. Feels it makes him more stable . He has walked on yard without problem. PT-OP-E Functional Tests Start: 01/21/18 14:41 Freq: Status: Active Protocol: Document 05/25/18 15:15 DCW (Rec: 05/25/18 15:58 DCW [id number]) Functional Tests 6 Minute Walk Test Distance 904 Device Used AFO Dynamic Gait Index (DGI) Score 18/24 DGI Impairment Rating 20 to <40% Impaired (Score 15- 19) Functional Gait Assessment Score 18/30 Functional Gait Assessment Impairment 40 to <60% Impaired (Score 13- Rating 18) PT-OP-F Manual Assessment Start: 02/12/18 13:26 Freq: Status: Active Protocol: Document 05/25/18 15:15 DCW (Rec: 05/25/18 17:56 DCW [id number]) Manual Assessments Joint Mobility Assessment Joint Mobility Assessment Pt no longer experiencing ankle pain/limitations PT-OP-G Mobility & Gait Start: 01/21/18 14:41 Freq: Status: Active Protocol: Document 05/25/18 15:15 DCW (Rec: 05/25/18 17:56 DCW [id number]) OP Mobility Evaluation Transfers Floor Transfers Modified independent with SPC Functional Movements Other Functional Movements Stepping over 6 object: Independent leading with both left or right foot PT-OP-Q Treatments Start: 08/19/17 08:09 Freq: Status: Active Protocol: Document 09/08/18 10:33 LRN (Rec: 09/08/18 11:19 LRN [id number]) Cardio Equipment Elliptical Duration (Minutes) 5 Resistance 5 Other verbal and manual cues for right LE alignment Bicycle (Upright) Duration (Minutes) 5 Resistance 9 Seat Position 6 Other soft brace Therapeutic Exercises Other Exercises BAPS strengthening Other Exercise Name Single and double standing for R ankle IV Side right Reps/Minutes 5' Gait Training Gait Activity uneven surfaces Level of Assistance CGA to mod assist for bal Surface 4, 8 box, hurdles, foam pods , foam discs Distance/Duration 20 min Comments balance beam with solid brace. Extra time taken to assist pt. Attempted 2nd pass, but pt became fatigued in legs. Neuro Re-Education Treatment Balance Activities balance beams Details heel to toe on balance beams Self-Care/Home Management Treatment Education Patient Education Joint Protection Activities Self-Care/Home Management Activities Reviewed with pt donning of R soft ankle brace. Extra time taken with pt donning/doffing brace by self. PT-OP-R Modalities Start: 08/19/17 08:09 Freq: Status: Active Protocol: Document 12/31/17 13:33 LRN (Rec: 12/31/17 14:41 LRN [id number]) Electric Stimulation Electric Stimulation [place] Stimulation Duration (Minutes) 10 Intensity 39 Contraction Type Normal High/Low High Cycle 10/10 Patient Position Sitting Comments Electrodes on R anterior tib for ankle DF PT-OP-S Aquatic Treatment Start: 09/27/17 14:34 Freq: Status: Active Protocol: Document 11/22/17 13:00 TMS (Rec: 11/22/17 16:26 TMS [email or web address]) Aquatics Treatment Pool Entry/Exit Pool Entry/Exit Method Stairs Assistance Standby Assistance Water Walking Forwards Water Level Chest Level Level of Assistance Standby Assistance Comments Cues, with and without fins. Lower Extremity Exercises 5 Details Single leg standing Body Position Standing Water Level Chest Level 1 Details Right hip AB/AD. Body Position Standing Water Level Chest Level Lower Extremity Stretches 1 Details Gastroc stretching Body Position Standing Water Level Waist Level Comments Manual assist Upper Extremity Stretches 1 Details Horizontal AB/AD Body Position Standing Water Level Chest Level Equipment Large resistance barbells Reps/Duration x 15 reps Swim Strokes Flutter Equipment Fins Kickboard Comments Min-A Backstroke Other Equipment Used With and without fins Comments 5 minutes PT-OP-T Assessment and Plan Start: 08/19/17 08:09 Freq: Status: Active Protocol: Document 09/08/18 10:33 LRN (Rec: 09/08/18 11:19 LRN [id number]) Physical Therapy Assessment Assessment Summary Assessment Pt did well with BAPS ex for ankle EV stengthening. Pt needed review and education in safe/proper donning of soft ankle brace to prevent making a tourniquet above the ankle joint. Pt does very well with self donning/doffing. Pt tone creates R ankle IV; therefore weakness is present with EV. Good EV mobility is noted. Physical Therapy Plan Frequency and Duration Frequency of Treatment 2x/Week Duration of Treatment 3 months Plan of Care Start Date 08/22/18 Plan of Care End Date 11/22/18 Next Visit Focus/Plan Next Note Type Treatment Note Next Visit Plan Continue PT to progress with functional gait and balance especially on uneven surfaces. Add ankle EV strengthening challenges.
--- NOTE | 2018-09-23 11:18 | PT.OTN ---
Current Diagnoses Spastic hemiplegia affecting right dominant side (09/23/18) Cerebral infarction due to unspecified occlusion or stenosis of left middle cerebral artery (09/23/18) Repeated falls (09/23/18) Apraxia (09/23/18) Weakness (09/23/18) Physical Therapy Treatment Note PT-OP-A Visit Information Start: 08/19/17 08:09 Freq: Status: Active Protocol: Document 09/23/18 11:08 SA (Rec: 09/23/18 11:17 SA [email or web address]) Out-Patient Physical Therapy Visit Information Visit Information Visit Type Treatment Note Visit Start Time 08:15 Visit Stop Time 09:00 Total Visit Minutes 45 Number of FEED GRINDER Visits 1 PT-OP-C Subjective Start: 08/19/17 08:09 Freq: Status: Active Protocol: Document 09/23/18 11:08 SA (Rec: 09/23/18 11:17 SA [email or web address]) OP-PT Subjective Patient Comments Patient Comments Pt presents in clinic with plastic AFO on RLE stating his foot was a little sore today and AFO feels better. PT-OP-E Functional Tests Start: 01/21/18 14:41 Freq: Status: Active Protocol: Document 05/25/18 15:15 DCW (Rec: 05/25/18 15:58 DCW [id number]) Functional Tests 6 Minute Walk Test Distance 904 Device Used AFO Dynamic Gait Index (DGI) Score 18/24 DGI Impairment Rating 20 to <40% Impaired (Score 15- 19) Functional Gait Assessment Score 18/30 Functional Gait Assessment Impairment 40 to <60% Impaired (Score 13- Rating 18) PT-OP-F Manual Assessment Start: 02/12/18 13:26 Freq: Status: Active Protocol: Document 05/25/18 15:15 DCW (Rec: 05/25/18 17:56 DCW [id number]) Manual Assessments Joint Mobility Assessment Joint Mobility Assessment Pt no longer experiencing ankle pain/limitations PT-OP-G Mobility & Gait Start: 01/21/18 14:41 Freq: Status: Active Protocol: Document 05/25/18 15:15 DCW (Rec: 05/25/18 17:56 DCW [id number]) OP Mobility Evaluation Transfers Floor Transfers Modified independent with SPC Functional Movements Other Functional Movements Stepping over 6 object: Independent leading with both left or right foot PT-OP-Q Treatments Start: 08/19/17 08:09 Freq: Status: Active Protocol: Document 09/23/18 11:08 SA (Rec: 09/23/18 11:17 SA [email or web address]) Cardio Equipment Recumbent Bicycle Duration (Minutes) 6 Resistance 6 Gym Equipment Shuttle Balance Red Details Wide DONNA, Staggered Stance Reps/Duration 6 min Comments EO/EC, ball toss /c perturbations, tandem stance along fulcrum, squats Therapeutic Exercises Standing Exercises step-ups Equipment Used 6 stairs Comments 5x2, no UE support step-overs Equipment Used over balance beam Reps/Minutes 5x ea LE Other Exercises BAPS strengthening Other Exercise Name Single and double standing for R ankle IV Side right Reps/Minutes 5' Gait Training Gait Activity stair training Description 4 steps Device Used single rail Level of Assistance CGA Distance/Duration 4x Treatment Focus Working on step through pattern Pre-gait steps fwd and back Device Used mirror Treatment Focus symmetry, alignment, increased stance time right uneven surfaces Level of Assistance CGA to mod assist for bal Surface 4, 8 box, hurdles, foam pods , foam discs Comments balance beam with solid brace. Extra time taken to assist pt. Attempted 2nd pass, but pt became fatigued in legs. Neuro Re-Education Treatment Balance Activities Obstacle course Details CGA Surface pods, foam and step Reps/Duration 6 lengths Comments stepping over/onto and around obstacles PT-OP-R Modalities Start: 08/19/17 08:09 Freq: Status: Active Protocol: Document 12/31/17 13:33 LRN (Rec: 12/31/17 14:41 LRN [id number]) Electric Stimulation Electric Stimulation [place] Stimulation Duration (Minutes) 10 Intensity 39 Contraction Type Normal High/Low High Cycle 10/10 Patient Position Sitting Comments Electrodes on R anterior tib for ankle DF PT-OP-S Aquatic Treatment Start: 09/27/17 14:34 Freq: Status: Active Protocol: Document 11/22/17 13:00 TMS (Rec: 11/22/17 16:26 TMS [email or web address]) Aquatics Treatment Pool Entry/Exit Pool Entry/Exit Method Stairs Assistance Standby Assistance Water Walking Forwards Water Level Chest Level Level of Assistance Standby Assistance Comments Cues, with and without fins. Lower Extremity Exercises 5 Details Single leg standing Body Position Standing Water Level Chest Level 1 Details Right hip AB/AD. Body Position Standing Water Level Chest Level Lower Extremity Stretches 1 Details Gastroc stretching Body Position Standing Water Level Waist Level Comments Manual assist Upper Extremity Stretches 1 Details Horizontal AB/AD Body Position Standing Water Level Chest Level Equipment Large resistance barbells Reps/Duration x 15 reps Swim Strokes Flutter Equipment Fins Kickboard Comments Min-A Backstroke Other Equipment Used With and without fins Comments 5 minutes PT-OP-T Assessment and Plan Start: 08/19/17 08:09 Freq: Status: Active Protocol: Document 09/23/18 11:08 SA (Rec: 09/23/18 11:17 SA [email or web address]) Physical Therapy Assessment Assessment Summary Assessment Treatment focused on dynamic balance on uneven surfaces and ankle EV strengthening, pt tolerated well and was fatigued at end of session. Physical Therapy Plan Next Visit Focus/Plan Next Note Type Treatment Note Next Visit Plan Continue PT to progress with functional gait and balance especially on uneven surfaces. Add ankle EV strengthening challenges.
--- NOTE | 2018-09-30 15:15 | PT.OTN ---
Current Diagnoses Spastic hemiplegia affecting right dominant side (09/30/18) Cerebral infarction due to unspecified occlusion or stenosis of left middle cerebral artery (09/30/18) Repeated falls (09/30/18) Apraxia (09/30/18) Weakness (09/30/18) Physical Therapy Treatment Note PT-OP-A Visit Information Start: 08/19/17 08:09 Freq: Status: Active Protocol: Document 09/30/18 15:15 RCC (Rec: 09/30/18 16:04 RCC [email or web address]) Out-Patient Physical Therapy Visit Information Visit Information Visit Type Treatment Note Visit Start Time 15:15 Visit Stop Time 15:59 Total Visit Minutes 44 Number of CREAM GATHERER Visits 0 PT-OP-C Subjective Start: 08/19/17 08:09 Freq: Status: Active Protocol: Document 09/30/18 15:15 RCC (Rec: 09/30/18 16:04 RCC [email or web address]) OP-PT Subjective Patient Comments Patient Comments Pt reports that his new soft brace has helped with his traversing the uneven ground. PT-OP-E Functional Tests Start: 01/21/18 14:41 Freq: Status: Active Protocol: Document 05/25/18 15:15 DCW (Rec: 05/25/18 15:58 DCW [id number]) Functional Tests 6 Minute Walk Test Distance 904 Device Used AFO Dynamic Gait Index (DGI) Score 18/24 DGI Impairment Rating 20 to <40% Impaired (Score 15- 19) Functional Gait Assessment Score 18/30 Functional Gait Assessment Impairment 40 to <60% Impaired (Score 13- Rating 18) PT-OP-F Manual Assessment Start: 02/12/18 13:26 Freq: Status: Active Protocol: Document 05/25/18 15:15 DCW (Rec: 05/25/18 17:56 DCW [id number]) Manual Assessments Joint Mobility Assessment Joint Mobility Assessment Pt no longer experiencing ankle pain/limitations PT-OP-G Mobility & Gait Start: 01/21/18 14:41 Freq: Status: Active Protocol: Document 05/25/18 15:15 DCW (Rec: 05/25/18 17:56 DCW [id number]) OP Mobility Evaluation Transfers Floor Transfers Modified independent with SPC Functional Movements Other Functional Movements Stepping over 6 object: Independent leading with both left or right foot PT-OP-Q Treatments Start: 08/19/17 08:09 Freq: Status: Active Protocol: Document 09/30/18 15:15 RCC (Rec: 09/30/18 16:04 RCC [email or web address]) Gym Equipment Shuttle Balance Red Details Wide DONNA, Staggered Stance Reps/Duration 20 min Comments EO/EC, balloon volley, tandem stance along fulcrum, squats Sport Cord forward walking- yana Exercise Details forward/backward gait with SC and stepping over 1 yana forward Cord/Resistance white/blue cord Reps/Duration 9 min Therapeutic Exercises Standing Exercises lateral walks Side bilateral Resistance L2-teal Comments 1 lap in standing bar SLS Side bilateral Comments verbal and manual cues, mirror for visual feedback PT-OP-R Modalities Start: 08/19/17 08:09 Freq: Status: Active Protocol: Document 12/31/17 13:33 LRN (Rec: 12/31/17 14:41 LRN [id number]) Electric Stimulation Electric Stimulation Chinese Stimulation Duration (Minutes) 10 Intensity 39 Contraction Type Normal High/Low High Cycle 10/10 Patient Position Sitting Comments Electrodes on R anterior tib for ankle DF PT-OP-T Assessment and Plan Start: 08/19/17 08:09 Freq: Status: Active Protocol: Document 09/30/18 15:15 RCC (Rec: 09/30/18 16:04 RCC [email or web address]) Physical Therapy Assessment Assessment Summary Assessment Pt with difficulty lifting the RLE over the hurdles today without excessive circumduction and pelvic motion. Pt had good pacing of activities, and very focused on each individual exercise. Physical Therapy Plan Frequency and Duration Frequency of Treatment 2x/Week Duration of Treatment 3 months Plan of Care Start Date 08/22/18 Plan of Care End Date 11/22/18 Next Visit Focus/Plan Next Note Type Treatment Note Next Visit Plan prog. ankle strength, uneven gait and standing balance.
--- NOTE | 2018-10-07 10:14 | PT.OTN ---
Current Diagnoses Spastic hemiplegia affecting right dominant side (10/07/18) Cerebral infarction due to unspecified occlusion or stenosis of left middle cerebral artery (10/07/18) Repeated falls (10/07/18) Apraxia (10/07/18) Weakness (10/07/18) Physical Therapy Treatment Note PT-OP-A Visit Information Start: 08/19/17 08:09 Freq: Status: Active Protocol: Document 10/07/18 09:08 SAK (Rec: 10/07/18 09:48 SAK [id number]) Out-Patient Physical Therapy Visit Information Visit Information Visit Type Treatment Note Visit Start Time 08:15 Visit Stop Time 09:00 Total Visit Minutes 45 Number of SLIP MAKER Visits 0 PT-OP-C Subjective Start: 08/19/17 08:09 Freq: Status: Active Protocol: Document 10/07/18 09:08 SAK (Rec: 10/07/18 10:14 SAK [id number]) OP-PT Subjective Patient Comments Patient Comments I want to walk better, not compensate. PT-OP-E Functional Tests Start: 01/21/18 14:41 Freq: Status: Active Protocol: Document 05/25/18 15:15 DCW (Rec: 05/25/18 15:58 DCW [id number]) Functional Tests 6 Minute Walk Test Distance 904 Device Used AFO Dynamic Gait Index (DGI) Score 18/24 DGI Impairment Rating 20 to <40% Impaired (Score 15- 19) Functional Gait Assessment Score 18/30 Functional Gait Assessment Impairment 40 to <60% Impaired (Score 13- Rating 18) PT-OP-F Manual Assessment Start: 02/12/18 13:26 Freq: Status: Active Protocol: Document 05/25/18 15:15 DCW (Rec: 05/25/18 17:56 DCW [id number]) Manual Assessments Joint Mobility Assessment Joint Mobility Assessment Pt no longer experiencing ankle pain/limitations PT-OP-G Mobility & Gait Start: 01/21/18 14:41 Freq: Status: Active Protocol: Document 05/25/18 15:15 DCW (Rec: 05/25/18 17:56 DCW [id number]) OP Mobility Evaluation Transfers Floor Transfers Modified independent with SPC Functional Movements Other Functional Movements Stepping over 6 object: Independent leading with both left or right foot PT-OP-Q Treatments Start: 08/19/17 08:09 Freq: Status: Active Protocol: Document 10/07/18 09:08 SAK (Rec: 10/07/18 09:48 SAK [id number]) Cardio Equipment Bicycle (Upright) Duration (Minutes) 8 Resistance 9-10 Seat Position 6 Other soft brace, 5 rounds of 30:30 intervals Gym Equipment Shuttle Balance Red Details Wide DONNA, Staggered Stance Reps/Duration 20 min Comments EO/EC, balloon volley, tandem stance along fulcrum, squats Therapeutic Exercises Standing Exercises lateral walks Side bilateral Resistance L2-teal Comments mirror for visual feedback SLS Side bilateral Comments verbal and manual cues, mirror for visual feedback Gait Training Gait Activity arm swing component Distance/Duration 2 min Treatment Focus symmetry of UE's and trunk Comments manual and verbal cues, mirror for visual feedback gait with mirror feedback, varying speed Treatment Focus dec compensatory patterns Pre-gait steps fwd and back Device Used mirror Treatment Focus symmetry, alignment, increased stance time right 4 Description backward gait Level of Assistance SBA, cues Surface level Treatment Focus increased hip extension, symmetry Comments verbal and manual cues, visual feedback from mirror PT-OP-R Modalities Start: 08/19/17 08:09 Freq: Status: Active Protocol: Document 12/31/17 13:33 LRN (Rec: 12/31/17 14:41 LRN [id number]) Electric Stimulation Electric Stimulation Armenian Stimulation Duration (Minutes) 10 Intensity 39 Contraction Type Normal High/Low High Cycle 10/10 Patient Position Sitting Comments Electrodes on R anterior tib for ankle DF PT-OP-S Aquatic Treatment Start: 09/27/17 14:34 Freq: Status: Active Protocol: Document 11/22/17 13:00 TMS (Rec: 11/22/17 16:26 TMS [email or web address]) Aquatics Treatment Pool Entry/Exit Pool Entry/Exit Method Stairs Assistance Standby Assistance Water Walking Forwards Water Level Chest Level Level of Assistance Standby Assistance Comments Cues, with and without fins. Lower Extremity Exercises 5 Details Single leg standing Body Position Standing Water Level Chest Level 1 Details Right hip AB/AD. Body Position Standing Water Level Chest Level Lower Extremity Stretches 1 Details Gastroc stretching Body Position Standing Water Level Waist Level Comments Manual assist Upper Extremity Stretches 1 Details Horizontal AB/AD Body Position Standing Water Level Chest Level Equipment Large resistance barbells Reps/Duration x 15 reps Swim Strokes Flutter Equipment Fins Kickboard Comments Min-A Backstroke Other Equipment Used With and without fins Comments 5 minutes PT-OP-T Assessment and Plan Start: 08/19/17 08:09 Freq: Status: Active Protocol: Document 10/07/18 09:08 LYNDA (Rec: 10/07/18 09:48 [facility] [id number]) Physical Therapy Assessment Goals Seven Impairment gait mechanics Chcf Goal (LTG) Josiah will demonstrate 50% decrease in compensatory strategies in his gait which include excessive right hip inversion, excessive right trunk sidebending. LTG Duration 11/22/18 Six Impairment gait [facility] Goal (LTG) Josiah will be able to safely walk on uneven surfaces with use of soft ankle brace instead of his metal AFO including in his garden. LTG Duration 11/22/18 Five Impairment strength Management Advisor Goal (LTG) Patient will improve his LE strength to be able to step over a 6 object independently and safely with either LE without catching foot or losing balance LTG Duration MET Four Impairment functional mobility Management Advisor Goal (LTG) Patient able to perform car transfers and floor transfers with ease, without loss of balance to improve his safety and quality of life LTG Duration MET Three Impairment Patient education [facility] Goal (LTG) Progress HEP, patient to be independent and compliant with updated HEP as his function continues to improve LTG Duration MET Two Impairment balance [facility] Goal (LTG) Improve Dynamic gait index to 19 or greater out of 24 for decreased fall risk 08/22/18: . new goal of LTG Duration 11/22/18 One Impairment functional mobility/gait [facility] Goal (LTG) Patient to improve 6 min walk test test to 1200 feet. 08/22/18: goal progress at 1025 ft LTG Duration 11/22/18 Assessment Summary Assessment Josiah highly motivated to improve his walking ability, though has difficulty with single leg stance right LE due to hip and core weakness as well as balance dysfunction and muscle tone impairment. Improved since last seen by this PT. Highly encouraged use of mirror for visual feedback at home with gait, SLS, sidestepping ex. Physical Therapy Plan Frequency and Duration Frequency of Treatment 2x/Week Duration of Treatment 3 months Plan of Care Start Date 08/22/18 Plan of Care End Date 11/22/18 Therapeutic Interventions Therapeutic Interventions Aquatic Therapy Balance Training Gait Training Home Exercise Program Neuromuscular Re-education Patient/Caregiver Education Self-Care/Home Management Therapeutic Activities Therapeutic Exercises Next Visit Focus/Plan Next Note Type Treatment Note Next Visit Plan prog. ankle strength, uneven gait and standing balance.
--- NOTE | 2018-10-14 16:02 | PT.OTN ---
Current Diagnoses Spastic hemiplegia affecting right dominant side (10/14/18) Cerebral infarction due to unspecified occlusion or stenosis of left middle cerebral artery (10/14/18) Repeated falls (10/14/18) Apraxia (10/14/18) Weakness (10/14/18) Physical Therapy Treatment Note PT-OP-A Visit Information Start: 08/19/17 08:09 Freq: Status: Active Protocol: Document 10/14/18 15:15 DCW (Rec: 10/14/18 16:02 DCW [id number]) Out-Patient Physical Therapy Visit Information Visit Information Visit Type Treatment Note Visit Start Time 15:15 Visit Stop Time 16:00 Total Visit Minutes 45 Number of PSYCHIATRIC NP Visits 0 PT-OP-C Subjective Start: 08/19/17 08:09 Freq: Status: Active Protocol: Document 10/14/18 15:15 DCW (Rec: 10/14/18 16:02 DCW [id number]) OP-PT Subjective Patient Comments Patient Comments I got a workout from 7:30 to noon today shoveling woodchips . PT-OP-E Functional Tests Start: 01/21/18 14:41 Freq: Status: Active Protocol: Document 05/25/18 15:15 DCW (Rec: 05/25/18 15:58 DCW [id number]) Functional Tests 6 Minute Walk Test Distance 904 Device Used AFO Dynamic Gait Index (DGI) Score 18/24 DGI Impairment Rating 20 to <40% Impaired (Score 15- 19) Functional Gait Assessment Score 18/30 Functional Gait Assessment Impairment 40 to <60% Impaired (Score 13- Rating 18) PT-OP-F Manual Assessment Start: 02/12/18 13:26 Freq: Status: Active Protocol: Document 05/25/18 15:15 DCW (Rec: 05/25/18 17:56 DCW [id number]) Manual Assessments Joint Mobility Assessment Joint Mobility Assessment Pt no longer experiencing ankle pain/limitations PT-OP-G Mobility & Gait Start: 01/21/18 14:41 Freq: Status: Active Protocol: Document 05/25/18 15:15 DCW (Rec: 05/25/18 17:56 DCW [id number]) OP Mobility Evaluation Transfers Floor Transfers Modified independent with SPC Functional Movements Other Functional Movements Stepping over 6 object: Independent leading with both left or right foot PT-OP-Q Treatments Start: 08/19/17 08:09 Freq: Status: Active Protocol: Document 10/14/18 15:15 DCW (Rec: 10/14/18 16:02 DCW [id number]) Cardio Equipment Bicycle (Upright) Duration (Minutes) 6 Resistance 10 Seat Position 6 Other soft brace, 5 rounds of 30:30 intervals Gym Equipment Shuttle Balance Red Details Wide DONNA, Staggered Stance Reps/Duration 20 min Comments EO/EC, ball toss, tandem stance along fulcrum, squats Therapeutic Exercises Standing Exercises lateral walks Side bilateral Resistance Blue Comments 1 lap in standing bar step-ups Standing Exercise Name onto BOSU Equipment Used Blue BOSU Comments lead with left SLS Side bilateral Comments verbal and manual cues, mirror for visual feedback PT-OP-R Modalities Start: 08/19/17 08:09 Freq: Status: Active Protocol: Document 12/31/17 13:33 LRN (Rec: 12/31/17 14:41 LRN [id number]) Electric Stimulation Electric Stimulation Citizen Of [place] Stimulation Duration (Minutes) 10 Intensity 39 Contraction Type Normal High/Low High Cycle 10/10 Patient Position Sitting Comments Electrodes on R anterior tib for ankle DF PT-OP-S Aquatic Treatment Start: 09/27/17 14:34 Freq: Status: Active Protocol: Document 11/22/17 13:00 TMS (Rec: 11/22/17 16:26 TMS [id number]) Aquatics Treatment Pool Entry/Exit Pool Entry/Exit Method Stairs Assistance Standby Assistance Water Walking Forwards Water Level Chest Level Level of Assistance Standby Assistance Comments Cues, with and without fins. Lower Extremity Exercises 5 Details Single leg standing Body Position Standing Water Level Chest Level 1 Details Right hip AB/AD. Body Position Standing Water Level Chest Level Lower Extremity Stretches 1 Details Gastroc stretching Body Position Standing Water Level Waist Level Comments Manual assist Upper Extremity Stretches 1 Details Horizontal AB/AD Body Position Standing Water Level Chest Level Equipment Large resistance barbells Reps/Duration x 15 reps Swim Strokes Flutter Equipment Fins Kickboard Comments Min-A Backstroke Other Equipment Used With and without fins Comments 5 minutes PT-OP-T Assessment and Plan Start: 08/19/17 08:09 Freq: Status: Active Protocol: Document 10/14/18 15:15 DCW (Rec: 10/14/18 16:02 [facility] [id number]) Physical Therapy Assessment Goals Seven Impairment gait mechanics Icer Machine Goal (LTG) Josiah will demonstrate 50% decrease in compensatory strategies in his gait which include excessive right hip inversion, excessive right trunk sidebending. LTG Duration 11/22/18 Six Impairment gait Snf Goal (LTG) Josiah will be able to safely walk on uneven surfaces with use of soft ankle brace instead of his metal AFO including in his garden. LTG Duration 11/22/18 Five Impairment strength Icer Machine Goal (LTG) Patient will improve his LE strength to be able to step over a 6 object independently and safely with either LE without catching foot or losing balance LTG Duration MET Four Impairment functional mobility Snf Goal (LTG) Patient able to perform car transfers and floor transfers with ease, without loss of balance to improve his safety and quality of life LTG Duration MET Three Impairment Patient education Icer Machine Goal (LTG) Progress HEP, patient to be independent and compliant with updated HEP as his function continues to improve LTG Duration MET Two Impairment balance Snf Goal (LTG) Improve Dynamic gait index to 19 or greater out of 24 for decreased fall risk 08/22/18: . new goal of LTG Duration 11/22/18 One Impairment functional mobility/gait Icer Machine Goal (LTG) Patient to improve 6 min walk test test to 1200 feet. 08/22/18: goal progress at 1025 ft LTG Duration 11/22/18 Assessment Summary Assessment Pt did very well today, tolerated increased resistence Physical Therapy Plan Frequency and Duration Frequency of Treatment 2x/Week Duration of Treatment 3 months Plan of Care Start Date 08/22/18 Plan of Care End Date 11/22/18 Therapeutic Interventions Therapeutic Interventions Aquatic Therapy Balance Training Gait Training Home Exercise Program Neuromuscular Re-education Patient/Caregiver Education Self-Care/Home Management Therapeutic Activities Therapeutic Exercises Next Visit Focus/Plan Next Note Type Treatment Note Next Visit Plan prog. ankle strength, uneven gait and standing balance.
--- NOTE | 2018-10-28 14:29 | PT.OTN ---
Current Diagnoses Spastic hemiplegia affecting right dominant side (10/28/18) Cerebral infarction due to unspecified occlusion or stenosis of left middle cerebral artery (10/28/18) Repeated falls (10/28/18) Apraxia (10/28/18) Weakness (10/28/18) Physical Therapy Treatment Note PT-OP-A Visit Information Start: 08/19/17 08:09 Freq: Status: Active Protocol: Document 10/28/18 09:00 SAK (Rec: 10/28/18 09:32 SAK [id number]) Out-Patient Physical Therapy Visit Information Visit Information Visit Type Treatment Note Visit Start Time 09:00 Visit Stop Time 09:30 Total Visit Minutes 30 Number of CUSTOM FRAMING SPECIALIST Visits 0 PT-OP-C Subjective Start: 08/19/17 08:09 Freq: Status: Active Protocol: Document 10/28/18 09:00 SAK (Rec: 10/28/18 09:32 SAK [id number]) OP-PT Subjective Patient Comments Patient Comments No new c/o, feels he is improving, loosening up. Spending a lot of time working in garden. PT-OP-E Functional Tests Start: 01/21/18 14:41 Freq: Status: Active Protocol: Document 05/25/18 15:15 DCW (Rec: 05/25/18 15:58 DCW [id number]) Functional Tests 6 Minute Walk Test Distance 904 Device Used AFO Dynamic Gait Index (DGI) Score 18/24 DGI Impairment Rating 20 to <40% Impaired (Score 15- 19) Functional Gait Assessment Score 18/30 Functional Gait Assessment Impairment 40 to <60% Impaired (Score 13- Rating 18) PT-OP-F Manual Assessment Start: 02/12/18 13:26 Freq: Status: Active Protocol: Document 05/25/18 15:15 DCW (Rec: 05/25/18 17:56 DCW [id number]) Manual Assessments Joint Mobility Assessment Joint Mobility Assessment Pt no longer experiencing ankle pain/limitations PT-OP-G Mobility & Gait Start: 01/21/18 14:41 Freq: Status: Active Protocol: Document 05/25/18 15:15 DCW (Rec: 05/25/18 17:56 DCW [id number]) OP Mobility Evaluation Transfers Floor Transfers Modified independent with SPC Functional Movements Other Functional Movements Stepping over 6 object: Independent leading with both left or right foot PT-OP-Q Treatments Start: 08/19/17 08:09 Freq: Status: Active Protocol: Document 10/28/18 09:00 SAK (Rec: 10/28/18 14:29 SAK [id number]) Gym Equipment Shuttle Balance Red Details Wide DONNA, Staggered Stance Reps/Duration 10 min Comments EO bal, weight shifts both directions, feet parallel and in stride, balloon volleyball both directions Therapeutic Exercises Standing Exercises lateral walks Side bilateral Resistance green Comments 1 lap in standing bar SLS Side bilateral Comments verbal and manual cues, mirror for visual feedback PT-OP-R Modalities Start: 08/19/17 08:09 Freq: Status: Active Protocol: Document 12/31/17 13:33 LRN (Rec: 12/31/17 14:41 LRN [id number]) Electric Stimulation Electric Stimulation [place] Stimulation Duration (Minutes) 10 Intensity 39 Contraction Type Normal High/Low High Cycle 10/10 Patient Position Sitting Comments Electrodes on R anterior tib for ankle DF PT-OP-S Aquatic Treatment Start: 09/27/17 14:34 Freq: Status: Active Protocol: Document 11/22/17 13:00 TMS (Rec: 11/22/17 16:26 TMS [id number]) Aquatics Treatment Pool Entry/Exit Pool Entry/Exit Method Stairs Assistance Standby Assistance Water Walking Forwards Water Level Chest Level Level of Assistance Standby Assistance Comments Cues, with and without fins. Lower Extremity Exercises 5 Details Single leg standing Body Position Standing Water Level Chest Level 1 Details Right hip AB/AD. Body Position Standing Water Level Chest Level Lower Extremity Stretches 1 Details Gastroc stretching Body Position Standing Water Level Waist Level Comments Manual assist Upper Extremity Stretches 1 Details Horizontal AB/AD Body Position Standing Water Level Chest Level Equipment Large resistance barbells Reps/Duration x 15 reps Swim Strokes Flutter Equipment Fins Kickboard Comments Min-A Backstroke Other Equipment Used With and without fins Comments 5 minutes PT-OP-T Assessment and Plan Start: 08/19/17 08:09 Freq: Status: Active Protocol: Document 10/28/18 09:00 SAK (Rec: 10/28/18 14:29 SAK [id number]) Physical Therapy Assessment Goals Seven Impairment gait mechanics Shelter Goal (LTG) Josiah will demonstrate 50% decrease in compensatory strategies in his gait which include excessive right hip inversion, excessive right trunk sidebending. LTG Duration 11/22/18 Six Impairment gait Machinist/Machine Builder Goal (LTG) Josiah will be able to safely walk on uneven surfaces with use of soft ankle brace instead of his metal AFO including in his garden. LTG Duration 11/22/18 Five Impairment strength Machinist/Machine Builder Goal (LTG) Patient will improve his LE strength to be able to step over a 6 object independently and safely with either LE without catching foot or losing balance LTG Duration MET Four Impairment functional mobility Machinist/Machine Builder Goal (LTG) Patient able to perform car transfers and floor transfers with ease, without loss of balance to improve his safety and quality of life LTG Duration MET Three Impairment Patient education Machinist/Machine Builder Goal (LTG) Progress HEP, patient to be independent and compliant with updated HEP as his function continues to improve LTG Duration MET Two Impairment balance Shelter Goal (LTG) Improve Dynamic gait index to 19 or greater out of 24 for decreased fall risk 08/22/18: . new goal of LTG Duration 11/22/18 One Impairment functional mobility/gait Machinist/Machine Builder Goal (LTG) Patient to improve 6 min walk test test to 1200 feet. 08/22/18: goal progress at 1025 ft LTG Duration 11/22/18 Assessment Summary Assessment Josiah had improved balance reactions and weight-bearing through his right LE with shuttle balance activities. Has not been doing SLS as part of HEP, but agreed to try. Physical Therapy Plan Frequency and Duration Frequency of Treatment 2x/Week Duration of Treatment 3 months Plan of Care Start Date 08/22/18 Plan of Care End Date 11/22/18 Therapeutic Interventions Therapeutic Interventions Aquatic Therapy Balance Training Gait Training Home Exercise Program Neuromuscular Re-education Patient/Caregiver Education Self-Care/Home Management Therapeutic Activities Therapeutic Exercises Next Visit Focus/Plan Next Note Type Treatment Note Next Visit Plan prog. ankle strength, uneven gait and standing balance.
--- NOTE | 2018-11-04 15:59 | PT.OTN ---
Current Diagnoses Spastic hemiplegia affecting right dominant side (11/04/18) Cerebral infarction due to unspecified occlusion or stenosis of left middle cerebral artery (11/04/18) Repeated falls (11/04/18) Apraxia (11/04/18) Weakness (11/04/18) Physical Therapy Treatment Note PT-OP-A Visit Information Start: 08/19/17 08:09 Freq: Status: Active Protocol: Document 11/04/18 15:15 DCW (Rec: 11/04/18 15:58 DCW [id number]) Out-Patient Physical Therapy Visit Information Visit Information Visit Type Treatment Note Visit Start Time 15:15 Visit Stop Time 16:00 Total Visit Minutes 45 Number of SPANISH INSTRUCTOR Visits 0 PT-OP-C Subjective Start: 08/19/17 08:09 Freq: Status: Active Protocol: Document 11/04/18 15:15 DCW (Rec: 11/04/18 15:59 DCW [id number]) OP-PT Subjective Patient Comments Patient Comments Pt's mom attended today's session, happy with pt's progress since she last attended a session. PT-OP-E Functional Tests Start: 01/21/18 14:41 Freq: Status: Active Protocol: Document 05/25/18 15:15 DCW (Rec: 05/25/18 15:58 DCW [id number]) Functional Tests 6 Minute Walk Test Distance 904 Device Used AFO Dynamic Gait Index (DGI) Score 18/24 DGI Impairment Rating 20 to <40% Impaired (Score 15- 19) Functional Gait Assessment Score 18/30 Functional Gait Assessment Impairment 40 to <60% Impaired (Score 13- Rating 18) PT-OP-F Manual Assessment Start: 02/12/18 13:26 Freq: Status: Active Protocol: Document 05/25/18 15:15 DCW (Rec: 05/25/18 17:56 DCW [id number]) Manual Assessments Joint Mobility Assessment Joint Mobility Assessment Pt no longer experiencing ankle pain/limitations PT-OP-G Mobility & Gait Start: 01/21/18 14:41 Freq: Status: Active Protocol: Document 05/25/18 15:15 DCW (Rec: 05/25/18 17:56 DCW [id number]) OP Mobility Evaluation Transfers Floor Transfers Modified independent with SPC Functional Movements Other Functional Movements Stepping over 6 object: Independent leading with both left or right foot PT-OP-Q Treatments Start: 08/19/17 08:09 Freq: Status: Active Protocol: Document 11/04/18 15:15 DCW (Rec: 11/04/18 15:58 DCW [id number]) Cardio Equipment Elliptical Duration (Minutes) 5 Resistance 6 Gym Equipment Shuttle Balance Red Details Wide DONNA, Staggered Stance Comments EO/EC, ball toss, tandem stance along fulcrum /c balloon volley, squats Therapeutic Exercises Standing Exercises step-ups Standing Exercise Name onto BOSU, onto step Equipment Used Blue BOSU, 12 step Comments lead with left 1 Standing Exercise Name Hip Abduction Side bilateral Resistance Green Equipment Used T-band PT-OP-R Modalities Start: 08/19/17 08:09 Freq: Status: Active Protocol: Document 12/31/17 13:33 LRN (Rec: 12/31/17 14:41 LRN [id number]) Electric Stimulation Electric Stimulation Turk[place] Stimulation Duration (Minutes) 10 Intensity 39 Contraction Type Normal High/Low High Cycle 10/10 Patient Position Sitting Comments Electrodes on R anterior tib for ankle DF PT-OP-S Aquatic Treatment Start: 09/27/17 14:34 Freq: Status: Active Protocol: Document 11/22/17 13:00 TMS (Rec: 11/22/17 16:26 TMS [email or web address]) Aquatics Treatment Pool Entry/Exit Pool Entry/Exit Method Stairs Assistance Standby Assistance Water Walking Forwards Water Level Chest Level Level of Assistance Standby Assistance Comments Cues, with and without fins. Lower Extremity Exercises 5 Details Single leg standing Body Position Standing Water Level Chest Level 1 Details Right hip AB/AD. Body Position Standing Water Level Chest Level Lower Extremity Stretches 1 Details Gastroc stretching Body Position Standing Water Level Waist Level Comments Manual assist Upper Extremity Stretches 1 Details Horizontal AB/AD Body Position Standing Water Level Chest Level Equipment Large resistance barbells Reps/Duration x 15 reps Swim Strokes Flutter Equipment Fins Kickboard Comments Min-A Backstroke Other Equipment Used With and without fins Comments 5 minutes PT-OP-T Assessment and Plan Start: 08/19/17 08:09 Freq: Status: Active Protocol: Document 11/04/18 15:15 DCW (Rec: 11/04/18 15:58 DCW [id number]) Physical Therapy Assessment Goals Seven Impairment gait mechanics Fdc Goal (LTG) Josiah will demonstrate 50% decrease in compensatory strategies in his gait which include excessive right hip inversion, excessive right trunk sidebending. LTG Duration 11/22/18 Six Impairment gait Fdc Goal (LTG) Josiah will be able to safely walk on uneven surfaces with use of soft ankle brace instead of his metal AFO including in his garden. LTG Duration 11/22/18 Five Impairment strength Funeral Service Practitioner/Embalmer Goal (LTG) Patient will improve his LE strength to be able to step over a 6 object independently and safely with either LE without catching foot or losing balance LTG Duration MET Four Impairment functional mobility Fdc Goal (LTG) Patient able to perform car transfers and floor transfers with ease, without loss of balance to improve his safety and quality of life LTG Duration MET Three Impairment Patient education Funeral Service Practitioner/Embalmer Goal (LTG) Progress HEP, patient to be independent and compliant with updated HEP as his function continues to improve LTG Duration MET Two Impairment balance Funeral Service Practitioner/Embalmer Goal (LTG) Improve Dynamic gait index to 19 or greater out of 24 for decreased fall risk 08/22/18: . new goal of LTG Duration 11/22/18 One Impairment functional mobility/gait Fdc Goal (LTG) Patient to improve 6 min walk test test to 1200 feet. 08/22/18: goal progress at 1025 ft LTG Duration 11/22/18 Assessment Summary Assessment Pt tolerating balance activities well, continues to show progress with weight- shifting and ability to lift body weight with quads. Physical Therapy Plan Frequency and Duration Frequency of Treatment 2x/Week Duration of Treatment 3 months Plan of Care Start Date 08/22/18 Plan of Care End Date 11/22/18 Therapeutic Interventions Therapeutic Interventions Aquatic Therapy Balance Training Gait Training Home Exercise Program Neuromuscular Re-education Patient/Caregiver Education Self-Care/Home Management Therapeutic Activities Therapeutic Exercises Next Visit Focus/Plan Next Note Type Treatment Note Next Visit Plan prog. ankle strength, uneven gait and standing balance.
--- NOTE | 2018-11-11 15:57 | PT.OTN ---
Current Diagnoses Spastic hemiplegia affecting right dominant side (11/11/18) Cerebral infarction due to unspecified occlusion or stenosis of left middle cerebral artery (11/11/18) Repeated falls (11/11/18) Apraxia (11/11/18) Weakness (11/11/18) Physical Therapy Treatment Note PT-OP-A Visit Information Start: 08/19/17 08:09 Freq: Status: Active Protocol: Document 11/11/18 15:15 DCW (Rec: 11/11/18 15:57 DCW [id number]) Out-Patient Physical Therapy Visit Information Visit Information Visit Type Treatment Note Visit Start Time 15:15 Visit Stop Time 16:00 Total Visit Minutes 45 Number of SPEECH AND HEARING DIRECTOR Visits 0 PT-OP-C Subjective Start: 08/19/17 08:09 Freq: Status: Active Protocol: Document 11/11/18 15:15 DCW (Rec: 11/11/18 15:57 DCW [id number]) OP-PT Subjective Patient Comments Patient Comments Pt reports that his foot has a bit of pain at the area of his 5th MCP joint, right where the strap from his ankle brace crosses his foot. Admits he might have had it too tight. PT-OP-E Functional Tests Start: 01/21/18 14:41 Freq: Status: Active Protocol: Document 05/25/18 15:15 DCW (Rec: 05/25/18 15:58 DCW [id number]) Functional Tests 6 Minute Walk Test Distance 904 Device Used AFO Dynamic Gait Index (DGI) Score 18/24 DGI Impairment Rating 20 to <40% Impaired (Score 15- 19) Functional Gait Assessment Score 18/30 Functional Gait Assessment Impairment 40 to <60% Impaired (Score 13- Rating 18) PT-OP-F Manual Assessment Start: 02/12/18 13:26 Freq: Status: Active Protocol: Document 05/25/18 15:15 DCW (Rec: 05/25/18 17:56 DCW [id number]) Manual Assessments Joint Mobility Assessment Joint Mobility Assessment Pt no longer experiencing ankle pain/limitations PT-OP-G Mobility & Gait Start: 01/21/18 14:41 Freq: Status: Active Protocol: Document 05/25/18 15:15 DCW (Rec: 05/25/18 17:56 DCW [id number]) OP Mobility Evaluation Transfers Floor Transfers Modified independent with SPC Functional Movements Other Functional Movements Stepping over 6 object: Independent leading with both left or right foot PT-OP-Q Treatments Start: 08/19/17 08:09 Freq: Status: Active Protocol: Document 11/11/18 15:15 DCW (Rec: 11/11/18 15:57 DCW [id number]) Cardio Equipment Elliptical Duration (Minutes) 5 Resistance 6 Gym Equipment Shuttle Balance Red Details Wide DONNA, Staggered Stance Comments EO/EC, ball toss, tandem stance along fulcrum /c balloon volley, squats Therapeutic Exercises Standing Exercises step-ups Standing Exercise Name onto step Equipment Used 13 step Comments lead with left step-overs Standing Exercise Name Lateral step-over 12 object Comments 4 step on its side 1 Standing Exercise Name Hip Abduction Side bilateral Resistance Green Equipment Used T-band PT-OP-R Modalities Start: 08/19/17 08:09 Freq: Status: Active Protocol: Document 12/31/17 13:33 LRN (Rec: 12/31/17 14:41 LRN [id number]) Electric Stimulation Electric Stimulation Kyrgyz Stimulation Duration (Minutes) 10 Intensity 39 Contraction Type Normal High/Low High Cycle 10/10 Patient Position Sitting Comments Electrodes on R anterior tib for ankle DF PT-OP-S Aquatic Treatment Start: 09/27/17 14:34 Freq: Status: Active Protocol: Document 11/22/17 13:00 TMS (Rec: 11/22/17 16:26 TMS [id number]) Aquatics Treatment Pool Entry/Exit Pool Entry/Exit Method Stairs Assistance Standby Assistance Water Walking Forwards Water Level Chest Level Level of Assistance Standby Assistance Comments Cues, with and without fins. Lower Extremity Exercises 5 Details Single leg standing Body Position Standing Water Level Chest Level 1 Details Right hip AB/AD. Body Position Standing Water Level Chest Level Lower Extremity Stretches 1 Details Gastroc stretching Body Position Standing Water Level Waist Level Comments Manual assist Upper Extremity Stretches 1 Details Horizontal AB/AD Body Position Standing Water Level Chest Level Equipment Large resistance barbells Reps/Duration x 15 reps Swim Strokes Flutter Equipment Fins Kickboard Comments Min-A Backstroke Other Equipment Used With and without fins Comments 5 minutes PT-OP-T Assessment and Plan Start: 08/19/17 08:09 Freq: Status: Active Protocol: Document 11/11/18 15:15 DCW (Rec: 11/11/18 15:57 DCW [id number]) Physical Therapy Assessment Goals Seven Impairment gait mechanics Equity Sales Assistant Goal (LTG) Josiah will demonstrate 50% decrease in compensatory strategies in his gait which include excessive right hip inversion, excessive right trunk sidebending. LTG Duration 11/22/18 Six Impairment gait Assisted Goal (LTG) Josiah will be able to safely walk on uneven surfaces with use of soft ankle brace instead of his metal AFO including in his garden. LTG Duration 11/22/18 Five Impairment strength Assisted Goal (LTG) Patient will improve his LE strength to be able to step over a 6 object independently and safely with either LE without catching foot or losing balance LTG Duration MET Four Impairment functional mobility Equity Sales Assistant Goal (LTG) Patient able to perform car transfers and floor transfers with ease, without loss of balance to improve his safety and quality of life LTG Duration MET Three Impairment Patient education Assisted Goal (LTG) Progress HEP, patient to be independent and compliant with updated HEP as his function continues to improve LTG Duration MET Two Impairment balance Assisted Goal (LTG) Improve Dynamic gait index to 19 or greater out of 24 for decreased fall risk 08/22/18: . new goal of LTG Duration 11/22/18 One Impairment functional mobility/gait Equity Sales Assistant Goal (LTG) Patient to improve 6 min walk test test to 1200 feet. 08/22/18: goal progress at 1025 ft LTG Duration 11/22/18 Assessment Summary Assessment Pt showed increased ability with 12 step-ups today, and did very well stepping over 13 object laterally. Physical Therapy Plan Frequency and Duration Frequency of Treatment 2x/Week Duration of Treatment 3 months Plan of Care Start Date 08/22/18 Plan of Care End Date 11/22/18 Therapeutic Interventions Therapeutic Interventions Aquatic Therapy Balance Training Gait Training Home Exercise Program Neuromuscular Re-education Patient/Caregiver Education Self-Care/Home Management Therapeutic Activities Therapeutic Exercises Next Visit Focus/Plan Next Note Type Progress Note Next Visit Plan prog. ankle strength, uneven gait and standing balance.
--- NOTE | 2018-11-17 13:45 | PT.OTN ---
Current Diagnoses Spastic hemiplegia affecting right dominant side (11/17/18) Cerebral infarction due to unspecified occlusion or stenosis of left middle cerebral artery (11/17/18) Repeated falls (11/17/18) Apraxia (11/17/18) Weakness (11/17/18) Physical Therapy Treatment Note PT-OP-A Visit Information Start: 08/19/17 08:09 Freq: Status: Active Protocol: Document 11/17/18 13:45 SAK (Rec: 11/20/18 09:19 SAK [id number]) Out-Patient Physical Therapy Visit Information Visit Information Visit Type Treatment Note Visit Start Time 13:45 Visit Stop Time 14:30 Total Visit Minutes 45 Number of PEDIATRIC SPEECH LANGUAGE PATHOLOGIST Visits 0 PT-OP-C Subjective Start: 08/19/17 08:09 Freq: Status: Active Protocol: Document 11/17/18 13:45 SAK (Rec: 11/20/18 09:19 SAK [id number]) OP-PT Subjective Patient Comments Patient Comments No pain in foot today. Wants to be able to walk better. PT-OP-E Functional Tests Start: 01/21/18 14:41 Freq: Status: Active Protocol: Document 05/25/18 15:15 DCW (Rec: 05/25/18 15:58 DCW [id number]) Functional Tests 6 Minute Walk Test Distance 904 Device Used AFO Dynamic Gait Index (DGI) Score 18/24 DGI Impairment Rating 20 to <40% Impaired (Score 15- 19) Functional Gait Assessment Score 18/30 Functional Gait Assessment Impairment 40 to <60% Impaired (Score 13- Rating 18) PT-OP-F Manual Assessment Start: 02/12/18 13:26 Freq: Status: Active Protocol: Document 05/25/18 15:15 DCW (Rec: 05/25/18 17:56 DCW [id number]) Manual Assessments Joint Mobility Assessment Joint Mobility Assessment Pt no longer experiencing ankle pain/limitations PT-OP-G Mobility & Gait Start: 01/21/18 14:41 Freq: Status: Active Protocol: Document 05/25/18 15:15 DCW (Rec: 05/25/18 17:56 DCW [id number]) OP Mobility Evaluation Transfers Floor Transfers Modified independent with SPC Functional Movements Other Functional Movements Stepping over 6 object: Independent leading with both left or right foot PT-OP-Q Treatments Start: 08/19/17 08:09 Freq: Status: Active Protocol: Document 11/17/18 13:45 SAK (Rec: 11/20/18 09:19 SAK [id number]) Cardio Equipment Elliptical Duration (Minutes) 5 Resistance 6 Other incorporation of UE's; low hold, manual assist right Gym Equipment Shuttle Balance Red Details Wide DONNA, Staggered Stance Comments EO/EC, ball toss, tandem stance along fulcrum /c balloon volley, squats Therapeutic Exercises Standing Exercises lateral trunk stretch Side bilateral step-ups Standing Exercise Name onto step Equipment Used 13 step Comments lead with left step-overs Standing Exercise Name Lateral step-over 12 object Comments 4 step on its side SLS Side bilateral Comments verbal and manual cues, mirror for visual feedback 1 Standing Exercise Name Hip Abduction Side bilateral Resistance Green Equipment Used T-band Gait Training Gait Activity arm swing component Treatment Focus full weight shift to right LE, symmetry Comments manual and verbal cues, mirror for visual feedback Pre-gait steps fwd and back Device Used mirror Treatment Focus symmetry, alignment, increased stance time right 4 Description backward gait Level of Assistance SBA, cues Surface level Treatment Focus increased hip extension, symmetry Comments verbal and manual cues, visual feedback from mirror PT-OP-R Modalities Start: 08/19/17 08:09 Freq: Status: Active Protocol: Document 12/31/17 13:33 LRN (Rec: 12/31/17 14:41 LRN [id number]) Electric Stimulation Electric Stimulation Botswanan Stimulation Duration (Minutes) 10 Intensity 39 Contraction Type Normal High/Low High Cycle 10/10 Patient Position Sitting Comments Electrodes on R anterior tib for ankle DF PT-OP-S Aquatic Treatment Start: 09/27/17 14:34 Freq: Status: Active Protocol: Document 11/22/17 13:00 TMS (Rec: 11/22/17 16:26 TMS [email or web address]) Aquatics Treatment Pool Entry/Exit Pool Entry/Exit Method Stairs Assistance Standby Assistance Water Walking Forwards Water Level Chest Level Level of Assistance Standby Assistance Comments Cues, with and without fins. Lower Extremity Exercises 5 Details Single leg standing Body Position Standing Water Level Chest Level 1 Details Right hip AB/AD. Body Position Standing Water Level Chest Level Lower Extremity Stretches 1 Details Gastroc stretching Body Position Standing Water Level Waist Level Comments Manual assist Upper Extremity Stretches 1 Details Horizontal AB/AD Body Position Standing Water Level Chest Level Equipment Large resistance barbells Reps/Duration x 15 reps Swim Strokes Flutter Equipment Fins Kickboard Comments Min-A Backstroke Other Equipment Used With and without fins Comments 5 minutes PT-OP-T Assessment and Plan Start: 08/19/17 08:09 Freq: Status: Active Protocol: Document 11/17/18 13:45 SAK (Rec: 11/20/18 09:19 [facility] [id number]) Physical Therapy Assessment Goals Seven Impairment gait mechanics Senior Care Goal (LTG) Josiah will demonstrate 50% decrease in compensatory strategies in his gait which include excessive right hip inversion, excessive right trunk sidebending. LTG Duration 11/22/18 Six Impairment gait Buffing Machine Tender Goal (LTG) Josiah will be able to safely walk on uneven surfaces with use of soft ankle brace instead of his metal AFO including in his garden. LTG Duration 11/22/18 Five Impairment strength Buffing Machine Tender Goal (LTG) Patient will improve his LE strength to be able to step over a 6 object independently and safely with either LE without catching foot or losing balance LTG Duration MET Four Impairment functional mobility Senior Care Goal (LTG) Patient able to perform car transfers and floor transfers with ease, without loss of balance to improve his safety and quality of life LTG Duration MET Three Impairment Patient education Senior Care Goal (LTG) Progress HEP, patient to be independent and compliant with updated HEP as his function continues to improve LTG Duration MET Two Impairment balance Buffing Machine Tender Goal (LTG) Improve Dynamic gait index to 19 or greater out of 24 for decreased fall risk 08/22/18: . new goal of LTG Duration 11/22/18 One Impairment functional mobility/gait Senior Care Goal (LTG) Patient to improve 6 min walk test test to 1200 feet. 08/22/18: goal progress at 1025 ft LTG Duration 11/22/18 Assessment Summary Assessment Josiah demonstrates good understanding of components of gait where correction required, performance improves with verbal and visual cues. Physical Therapy Plan Frequency and Duration Frequency of Treatment 2x/Week Duration of Treatment 3 months Plan of Care Start Date 08/22/18 Plan of Care End Date 11/22/18 Therapeutic Interventions Therapeutic Interventions Aquatic Therapy Balance Training Gait Training Home Exercise Program Neuromuscular Re-education Patient/Caregiver Education Self-Care/Home Management Therapeutic Activities Therapeutic Exercises Next Visit Focus/Plan Next Note Type Progress Note Next Visit Plan prog. ankle strength, uneven gait and standing balance.
--- NOTE | 2018-11-17 16:00 | PT.OPPOC ---
Current Diagnoses Spastic hemiplegia affecting right dominant side (11/17/18) Cerebral infarction due to unspecified occlusion or stenosis of left middle cerebral artery (11/17/18) Repeated falls (11/17/18) Apraxia (11/17/18) Weakness (11/17/18) Visit Care Team Role Provider Type H Naman Olmstead MD Family Provider Physician Primary Care Provider Specialty: Medical Address: [address] [place] [address], [phone] Email: [email or web address] Marietta Lawler Attending Provider Non-Staff Specialty: Medical Address: [address] [place] [address], [id number] Email: Plan Of Care PT-OP-T Assessment and Plan Start: 08/19/17 08:09 Freq: Status: Active Protocol: Document 11/17/18 13:45 SAK (Rec: 11/20/18 09:19 SAK [id number]) Physical Therapy Assessment Goals Seven Impairment gait mechanics Detention Goal (LTG) Josiah will demonstrate 50% decrease in compensatory strategies in his gait which include excessive right hip inversion, excessive right trunk sidebending, lack of arm swing 11/17/18: goal progress LTG Duration 02/22/19 Six Impairment gait Detention Goal (LTG) Josiah will be able to safely walk on uneven surfaces with use of soft ankle brace instead of his metal AFO including in his garden. 11/17/18: excellent goal progress, mostly met LTG Duration 02/22/19 Five Impairment strength Junior Web Developer Goal (LTG) Patient will improve his LE strength to be able to step over a 6 on bject independently and safely with either LE without catching foot or losing balance LTG Duration MET Four Impairment functional mobility Junior Web Developer Goal (LTG) Patient able to perform car transfers and floor transfers with ease, without loss of balance to improve his safety and quality of life LTG Duration MET Three Impairment Patient education Junior Web Developer Goal (LTG) Progress HEP, patient to be independent and compliant with updated HEP as his function continues to improve 11/17/18: ongoing progress LTG Duration 02/22/19 Two Impairment balance Detention Goal (LTG) Improve Dynamic gait index to 19 or greater out of 24 for decreased fall risk 08/22/18: . new goal of 11/22/18: LTG Duration 02/22/19 One Impairment functional mobility/gait Detention Goal (LTG) Patient to improve 6 min walk test test to 1200 feet. 08/22/18: goal progress at 1025 ft 11/17/18 goal progress 1t 1085 ft LTG Duration 02/22/19 Assessment Summary Assessment Josiah demonstrates good understanding of components of gait where correction required, performance improves with verbal and visual cues. Continues to progress toward PT goals with good motivation and improved HEP compliance. Physical Therapy Plan Frequency and Duration Frequency of Treatment 2x/Week Duration of Treatment 3 months Plan of Care Start Date 11/22/18 Plan of Care End Date 02/22/19 Therapeutic Interventions Therapeutic Interventions Aquatic Therapy,Balance Training,Gait Training,Home Exercise Program,Neuromuscular Re-education,Patient/ Caregiver Education,Self-Care/ Home Management,Therapeutic Activities,Therapeutic Exercises Next Visit Focus/Plan Next Note Type Progress Note Next Visit Plan prog. ankle strength, uneven gait and standing balance. Plan of Care Dates Plan of Care Start Date 11/22/18 Plan of Care End Date 02/22/19 Please Sign and Return: I have reviewed this Plan of Care and certify that the skilled therapy services above are required to meet the patient?s needs. Physician Signature Date Printed Name and Credentials Clinical Instructor Signature Printed Name and Credentials
--- NOTE | 2018-12-15 14:16 | PT.OTN ---
Current Diagnoses Spastic hemiplegia affecting right dominant side (12/15/18) Cerebral infarction due to unspecified occlusion or stenosis of left middle cerebral artery (12/15/18) Repeated falls (12/15/18) Apraxia (12/15/18) Weakness (12/15/18) Physical Therapy Treatment Note PT-OP-A Visit Information Start: 08/19/17 08:09 Freq: Status: Active Protocol: Document 12/15/18 09:57 SAK (Rec: 12/15/18 10:36 SAK [id number]) Out-Patient Physical Therapy Visit Information Visit Information Visit Type Treatment Note Visit Start Time 09:45 Visit Stop Time 10:45 Total Visit Minutes 45 Number of MEAT WASHER Visits 0 PT-OP-C Subjective Start: 08/19/17 08:09 Freq: Status: Active Protocol: Document 12/15/18 09:57 SAK (Rec: 12/15/18 10:36 SAK [id number]) OP-PT Subjective Patient Comments Patient Comments Having some inflammation and pain right knee especially with stepping up onto high surfaces. PT-OP-E Functional Tests Start: 01/21/18 14:41 Freq: Status: Active Protocol: Document 05/25/18 15:15 DCW (Rec: 05/25/18 15:58 DCW [id number]) Functional Tests 6 Minute Walk Test Distance 904 Device Used AFO Dynamic Gait Index (DGI) Score 18/24 DGI Impairment Rating 20 to <40% Impaired (Score 15- 19) Functional Gait Assessment Score 18/30 Functional Gait Assessment Impairment 40 to <60% Impaired (Score 13- Rating 18) PT-OP-F Manual Assessment Start: 02/12/18 13:26 Freq: Status: Active Protocol: Document 05/25/18 15:15 DCW (Rec: 05/25/18 17:56 DCW [id number]) Manual Assessments Joint Mobility Assessment Joint Mobility Assessment Pt no longer experiencing ankle pain/limitations PT-OP-G Mobility & Gait Start: 01/21/18 14:41 Freq: Status: Active Protocol: Document 05/25/18 15:15 DCW (Rec: 05/25/18 17:56 DCW [id number]) OP Mobility Evaluation Transfers Floor Transfers Modified independent with SPC Functional Movements Other Functional Movements Stepping over 6 object: Independent leading with both left or right foot PT-OP-Q Treatments Start: 08/19/17 08:09 Freq: Status: Active Protocol: Document 12/15/18 09:57 SAK (Rec: 12/15/18 14:16 SAK [id number]) Cardio Equipment Elliptical Duration (Minutes) 5 Resistance 6 Other incorporation of UE's; low hold, manual assist right Gym Equipment Sport Cord 1 Exercise Details forward, back, side Cord/Resistance green Comments walking each direction and wt shifts with mirror for visual feedback to correct LE alignment Therapeutic Exercises Standing Exercises lateral trunk stretch Side bilateral squats Resistance L1 TB around lower thighs to facilitation hip ER Reps/Minutes 20x Comments mirror for visual feedback SLS Side bilateral Comments verbal and manual cues, mirror for visual feedback Gait Training Gait Activity arm swing component Treatment Focus full weight shift to right LE, symmetry Comments manual and verbal cues, mirror for visual feedback Pre-gait steps fwd and back Device Used mirror Treatment Focus symmetry, alignment, increased stance time right 4 Description backward gait Level of Assistance SBA, cues Surface level Treatment Focus increased hip extension, symmetry Comments verbal and manual cues, visual feedback from mirror PT-OP-R Modalities Start: 08/19/17 08:09 Freq: Status: Active Protocol: Document 12/31/17 13:33 LRN (Rec: 12/31/17 14:41 LRN [id number]) Electric Stimulation Electric Stimulation [place] Stimulation Duration (Minutes) 10 Intensity 39 Contraction Type Normal High/Low High Cycle 10/10 Patient Position Sitting Comments Electrodes on R anterior tib for ankle DF PT-OP-S Aquatic Treatment Start: 09/27/17 14:34 Freq: Status: Active Protocol: Document 11/22/17 13:00 TMS (Rec: 11/22/17 16:26 TMS [id number]) Aquatics Treatment Pool Entry/Exit Pool Entry/Exit Method Stairs Assistance Standby Assistance Water Walking Forwards Water Level Chest Level Level of Assistance Standby Assistance Comments Cues, with and without fins. Lower Extremity Exercises 5 Details Single leg standing Body Position Standing Water Level Chest Level 1 Details Right hip AB/AD. Body Position Standing Water Level Chest Level Lower Extremity Stretches 1 Details Gastroc stretching Body Position Standing Water Level Waist Level Comments Manual assist Upper Extremity Stretches 1 Details Horizontal AB/AD Body Position Standing Water Level Chest Level Equipment Large resistance barbells Reps/Duration x 15 reps Swim Strokes Flutter Equipment Fins,Kickboard Comments Min-A Backstroke Other Equipment Used With and without fins Comments 5 minutes PT-OP-T Assessment and Plan Start: 08/19/17 08:09 Freq: Status: Active Protocol: Document 12/15/18 09:57 LYNDA (Rec: 12/15/18 10:36 LYNDA [id number]) Physical Therapy Assessment Goals Seven Impairment gait mechanics Glycerine Plant Operator Goal (LTG) Josiah will demonstrate 50% decrease in compensatory strategies in his gait which include excessive right hip inversion, excessive right trunk sidebending, lack of arm swing 11/17/18: goal progress LTG Duration 02/22/19 Six Impairment gait Correction Goal (LTG) Josiah will be able to safely walk on uneven surfaces with use of soft ankle brace instead of his metal AFO including in his garden. 11/17/18: excellent goal progress, mostly met LTG Duration 02/22/19 Five Impairment strength Correction Goal (LTG) Patient will improve his LE strength to be able to step over a 6 on bject independently and safely with either LE without catching foot or losing balance LTG Duration MET Four Impairment functional mobility Correction Goal (LTG) Patient able to perform car transfers and floor transfers with ease, without loss of balance to improve his safety and quality of life LTG Duration MET Three Impairment Patient education Glycerine Plant Operator Goal (LTG) Progress HEP, patient to be independent and compliant with updated HEP as his function continues to improve 11/17/18: ongoing progress LTG Duration 02/22/19 Two Impairment balance Glycerine Plant Operator Goal (LTG) Improve Dynamic gait index to 19 or greater out of 24 for decreased fall risk 08/22/18: . new goal of 11/22/18: LTG Duration 02/22/19 One Impairment functional mobility/gait Correction Goal (LTG) Patient to improve 6 min walk test test to 1200 feet. 08/22/18: goal progress at 1025 ft 11/17/18 goal progress 1t 1085 ft LTG Duration 02/22/19 Assessment Summary Assessment Use of mirror for majority of PT session today with focus on LE alignment due to elizabeth IR LE 's with gait. Patient instructed to use mirror at home to practice. Physical Therapy Plan Frequency and Duration Frequency of Treatment 2x/Week Duration of Treatment 3 months Plan of Care Start Date 11/22/18 Plan of Care End Date 02/22/19 Therapeutic Interventions Therapeutic Interventions Aquatic Therapy,Balance Training,Gait Training,Home Exercise Program,Neuromuscular Re-education,Patient/ Caregiver Education,Self-Care/ Home Management,Therapeutic Activities,Therapeutic Exercises Next Visit Focus/Plan Next Note Type Progress Note Next Visit Plan Continue PT per POC, emphasis on gait training, balance, LE strengthening.
--- NOTE | 2018-12-21 11:15 | PT.OTN ---
Current Diagnoses Spastic hemiplegia affecting right dominant side (12/21/18) Cerebral infarction due to unspecified occlusion or stenosis of left middle cerebral artery (12/21/18) Repeated falls (12/21/18) Apraxia (12/21/18) Weakness (12/21/18) Physical Therapy Treatment Note PT-OP-A Visit Information Start: 08/19/17 08:09 Freq: Status: Active Protocol: Document 12/21/18 10:35 DCW (Rec: 12/21/18 11:15 DCW [id number]) Out-Patient Physical Therapy Visit Information Visit Information Visit Type Treatment Note Visit Note Arrived 5 minutes late Visit Start Time 10:35 Visit Stop Time 11:15 Total Visit Minutes 40 Number of SENIOR RESEARCH PROJECT MANAGER Visits 0 PT-OP-C Subjective Start: 08/19/17 08:09 Freq: Status: Active Protocol: Document 12/21/18 10:35 DCW (Rec: 12/21/18 11:15 DCW [id number]) OP-PT Subjective Patient Comments Patient Comments Pt reports he is still experiencing knee inflammation , but it is better than it had been last week. PT-OP-E Functional Tests Start: 01/21/18 14:41 Freq: Status: Active Protocol: Document 05/25/18 15:15 DCW (Rec: 05/25/18 15:58 DCW [id number]) Functional Tests 6 Minute Walk Test Distance 904 Device Used AFO Dynamic Gait Index (DGI) Score 18/24 DGI Impairment Rating 20 to <40% Impaired (Score 15- 19) Functional Gait Assessment Score 18/30 Functional Gait Assessment Impairment 40 to <60% Impaired (Score 13- Rating 18) PT-OP-F Manual Assessment Start: 02/12/18 13:26 Freq: Status: Active Protocol: Document 05/25/18 15:15 DCW (Rec: 05/25/18 17:56 DCW [id number]) Manual Assessments Joint Mobility Assessment Joint Mobility Assessment Pt no longer experiencing ankle pain/limitations PT-OP-G Mobility & Gait Start: 01/21/18 14:41 Freq: Status: Active Protocol: Document 05/25/18 15:15 DCW (Rec: 05/25/18 17:56 DCW [id number]) OP Mobility Evaluation Transfers Floor Transfers Modified independent with SPC Functional Movements Other Functional Movements Stepping over 6 object: Independent leading with both left or right foot PT-OP-Q Treatments Start: 08/19/17 08:09 Freq: Status: Active Protocol: Document 12/21/18 10:35 DCW (Rec: 12/21/18 11:15 DCW [id number]) Cardio Equipment Elliptical Duration (Minutes) 5 Resistance 6 Other incorporation of UE's; low hold, manual assist right Gym Equipment Shuttle Balance Red Details Wide DONNA, Staggered Stance Comments EO/EC, ball toss, tandem stance along fulcrum /c balloon volley, squats Sport Cord 1 Exercise Details side Cord/Resistance green Comments over hurdles Therapeutic Exercises Standing Exercises squats Resistance L1 TB around lower thighs to facilitation hip ER Reps/Minutes 20x Comments mirror for visual feedback PT-OP-R Modalities Start: 08/19/17 08:09 Freq: Status: Active Protocol: Document 12/31/17 13:33 LRN (Rec: 12/31/17 14:41 LRN [id number]) Electric Stimulation Electric Stimulation [place] Stimulation Duration (Minutes) 10 Intensity 39 Contraction Type Normal High/Low High Cycle 10/10 Patient Position Sitting Comments Electrodes on R anterior tib for ankle DF PT-OP-S Aquatic Treatment Start: 09/27/17 14:34 Freq: Status: Active Protocol: Document 11/22/17 13:00 TMS (Rec: 11/22/17 16:26 TMS [email or web address]) Aquatics Treatment Pool Entry/Exit Pool Entry/Exit Method Stairs Assistance Standby Assistance Water Walking Forwards Water Level Chest Level Level of Assistance Standby Assistance Comments Cues, with and without fins. Lower Extremity Exercises 5 Details Single leg standing Body Position Standing Water Level Chest Level 1 Details Right hip AB/AD. Body Position Standing Water Level Chest Level Lower Extremity Stretches 1 Details Gastroc stretching Body Position Standing Water Level Waist Level Comments Manual assist Upper Extremity Stretches 1 Details Horizontal AB/AD Body Position Standing Water Level Chest Level Equipment Large resistance barbells Reps/Duration x 15 reps Swim Strokes Flutter Equipment Fins,Kickboard Comments Min-A Backstroke Other Equipment Used With and without fins Comments 5 minutes PT-OP-T Assessment and Plan Start: 08/19/17 08:09 Freq: Status: Active Protocol: Document 12/21/18 10:35 DCW (Rec: 12/21/18 11:15 DCW [id number]) Physical Therapy Assessment Goals Seven Impairment gait mechanics Bleach Packer Goal (LTG) Josiah will demonstrate 50% decrease in compensatory strategies in his gait which include excessive right hip inversion, excessive right trunk sidebending, lack of arm swing 11/17/18: goal progress LTG Duration 02/22/19 Six Impairment gait Bleach Packer Goal (LTG) Josiah will be able to safely walk on uneven surfaces with use of soft ankle brace instead of his metal AFO including in his garden. 11/17/18: excellent goal progress, mostly met LTG Duration 02/22/19 Five Impairment strength Group Home Goal (LTG) Patient will improve his LE strength to be able to step over a 6 on bject independently and safely with either LE without catching foot or losing balance LTG Duration MET Four Impairment functional mobility Bleach Packer Goal (LTG) Patient able to perform car transfers and floor transfers with ease, without loss of balance to improve his safety and quality of life LTG Duration MET Three Impairment Patient education Group Home Goal (LTG) Progress HEP, patient to be independent and compliant with updated HEP as his function continues to improve 11/17/18: ongoing progress LTG Duration 02/22/19 Two Impairment balance Group Home Goal (LTG) Improve Dynamic gait index to 19 or greater out of 24 for decreased fall risk 08/22/18: . new goal of 11/22/18: LTG Duration 02/22/19 One Impairment functional mobility/gait Bleach Packer Goal (LTG) Patient to improve 6 min walk test test to 1200 feet. 08/22/18: goal progress at 1025 ft 11/17/18 goal progress 1t 1085 ft LTG Duration 02/22/19 Assessment Summary Assessment Pt able to participate in all attempted areas today with no increased knee pain. Physical Therapy Plan Frequency and Duration Frequency of Treatment 2x/Week Duration of Treatment 3 months Plan of Care Start Date 11/22/18 Plan of Care End Date 02/22/19 Therapeutic Interventions Therapeutic Interventions Aquatic Therapy,Balance Training,Gait Training,Home Exercise Program,Neuromuscular Re-education,Patient/ Caregiver Education,Self-Care/ Home Management,Therapeutic Activities,Therapeutic Exercises Next Visit Focus/Plan Next Note Type Treatment Note Next Visit Plan Continue PT per POC, emphasis on gait training, balance, LE strengthening.
--- NOTE | 2018-12-30 16:01 | PT.OTN ---
Current Diagnoses Spastic hemiplegia affecting right dominant side (12/30/18) Cerebral infarction due to unspecified occlusion or stenosis of left middle cerebral artery (12/30/18) Repeated falls (12/30/18) Apraxia (12/30/18) Weakness (12/30/18) Physical Therapy Treatment Note PT-OP-A Visit Information Start: 08/19/17 08:09 Freq: Status: Active Protocol: Document 12/30/18 15:15 DCW (Rec: 12/30/18 16:00 DCW [id number]) Out-Patient Physical Therapy Visit Information Visit Information Visit Type Treatment Note Visit Start Time 15:15 Visit Stop Time 16:00 Total Visit Minutes 45 Number of ELECTRONIC PAGINATION SYSTEM OPERATOR Visits 0 PT-OP-C Subjective Start: 08/19/17 08:09 Freq: Status: Active Protocol: Document 12/30/18 15:15 DCW (Rec: 12/30/18 16:00 DCW [id number]) OP-PT Subjective Patient Comments Patient Comments Pt reports everything has been feeling better, he has no ankle pain, and his knee inflammation is down 70%. PT-OP-E Functional Tests Start: 01/21/18 14:41 Freq: Status: Active Protocol: Document 05/25/18 15:15 DCW (Rec: 05/25/18 15:58 DCW [id number]) Functional Tests 6 Minute Walk Test Distance 904 Device Used AFO Dynamic Gait Index (DGI) Score 18/24 DGI Impairment Rating 20 to <40% Impaired (Score 15- 19) Functional Gait Assessment Score 18/30 Functional Gait Assessment Impairment 40 to <60% Impaired (Score 13- Rating 18) PT-OP-F Manual Assessment Start: 02/12/18 13:26 Freq: Status: Active Protocol: Document 05/25/18 15:15 DCW (Rec: 05/25/18 17:56 DCW [id number]) Manual Assessments Joint Mobility Assessment Joint Mobility Assessment Pt no longer experiencing ankle pain/limitations PT-OP-G Mobility & Gait Start: 01/21/18 14:41 Freq: Status: Active Protocol: Document 05/25/18 15:15 DCW (Rec: 05/25/18 17:56 DCW [id number]) OP Mobility Evaluation Transfers Floor Transfers Modified independent with SPC Functional Movements Other Functional Movements Stepping over 6 object: Independent leading with both left or right foot PT-OP-Q Treatments Start: 08/19/17 08:09 Freq: Status: Active Protocol: Document 12/30/18 15:15 DCW (Rec: 12/30/18 16:00 DCW [id number]) Cardio Equipment Elliptical Duration (Minutes) 5 Resistance 6 Other incorporation of UE's; low hold, manual assist right Gym Equipment Shuttle Balance Red Details Wide DONNA Comments PVC Sword fighting Sport Cord 1 Exercise Details side Cord/Resistance green Comments over hurdles Therapeutic Exercises Standing Exercises UE arm swing for gait Standing Exercise Name Pendulums Comments Promote R arm swing Gait Training Gait Activity arm swing component Treatment Focus R arm swing without entire shoulder complex/torso movement Comments manual cues for arm swing while walking laps Pre-gait steps fwd and back Device Used mirror Treatment Focus symmetry, alignment, increased stance time right PT-OP-R Modalities Start: 08/19/17 08:09 Freq: Status: Active Protocol: Document 12/31/17 13:33 LRN (Rec: 12/31/17 14:41 LRN [id number]) Electric Stimulation Electric Stimulation Maldivian Stimulation Duration (Minutes) 10 Intensity 39 Contraction Type Normal High/Low High Cycle 10/10 Patient Position Sitting Comments Electrodes on R anterior tib for ankle DF PT-OP-S Aquatic Treatment Start: 09/27/17 14:34 Freq: Status: Active Protocol: Document 11/22/17 13:00 TMS (Rec: 11/22/17 16:26 TMS [id number]) Aquatics Treatment Pool Entry/Exit Pool Entry/Exit Method Stairs Assistance Standby Assistance Water Walking Forwards Water Level Chest Level Level of Assistance Standby Assistance Comments Cues, with and without fins. Lower Extremity Exercises 5 Details Single leg standing Body Position Standing Water Level Chest Level 1 Details Right hip AB/AD. Body Position Standing Water Level Chest Level Lower Extremity Stretches 1 Details Gastroc stretching Body Position Standing Water Level Waist Level Comments Manual assist Upper Extremity Stretches 1 Details Horizontal AB/AD Body Position Standing Water Level Chest Level Equipment Large resistance barbells Reps/Duration x 15 reps Swim Strokes Flutter Equipment Fins,Kickboard Comments Min-A Backstroke Other Equipment Used With and without fins Comments 5 minutes PT-OP-T Assessment and Plan Start: 08/19/17 08:09 Freq: Status: Active Protocol: Document 12/30/18 15:15 DCW (Rec: 12/30/18 16:00 DCW [id number]) Physical Therapy Assessment Goals Seven Impairment gait mechanics Fci Goal (LTG) Josiah will demonstrate 50% decrease in compensatory strategies in his gait which include excessive right hip inversion, excessive right trunk sidebending, lack of arm swing 11/17/18: goal progress LTG Duration 02/22/19 Six Impairment gait Cpc Goal (LTG) Josiah will be able to safely walk on uneven surfaces with use of soft ankle brace instead of his metal AFO including in his garden. 11/17/18: excellent goal progress, mostly met LTG Duration 02/22/19 Five Impairment strength Cpc Goal (LTG) Patient will improve his LE strength to be able to step over a 6 on bject independently and safely with either LE without catching foot or losing balance LTG Duration MET Four Impairment functional mobility Fci Goal (LTG) Patient able to perform car transfers and floor transfers with ease, without loss of balance to improve his safety and quality of life LTG Duration MET Three Impairment Patient education Fci Goal (LTG) Progress HEP, patient to be independent and compliant with updated HEP as his function continues to improve 11/17/18: ongoing progress LTG Duration 02/22/19 Two Impairment balance Fci Goal (LTG) Improve Dynamic gait index to 19 or greater out of 24 for decreased fall risk 08/22/18: 18. new goal of 11/22/18: LTG Duration 02/22/19 One Impairment functional mobility/gait Fci Goal (LTG) Patient to improve 6 min walk test test to 1200 feet. 08/22/18: goal progress at 1025 ft 11/17/18 goal progress 1t 1085 ft LTG Duration 02/22/19 Assessment Summary Assessment Focused today more on arm swing during gait. Pt to work on pendulums for HEP. Physical Therapy Plan Frequency and Duration Frequency of Treatment 2x/Week Duration of Treatment 3 months Plan of Care Start Date 11/22/18 Plan of Care End Date 02/22/19 Therapeutic Interventions Therapeutic Interventions Aquatic Therapy,Balance Training,Gait Training,Home Exercise Program,Neuromuscular Re-education,Patient/ Caregiver Education,Self-Care/ Home Management,Therapeutic Activities,Therapeutic Exercises Next Visit Focus/Plan Next Note Type Treatment Note Next Visit Plan Continue PT per POC, emphasis on gait training, balance, LE strengthening.
--- NOTE | 2019-01-06 11:16 | PT.OTN ---
Current Diagnoses Spastic hemiplegia affecting right dominant side (01/06/19) Cerebral infarction due to unspecified occlusion or stenosis of left middle cerebral artery (01/06/19) Repeated falls (01/06/19) Apraxia (01/06/19) Weakness (01/06/19) Physical Therapy Treatment Note PT-OP-A Visit Information Start: 08/19/17 08:09 Freq: Status: Active Protocol: Document 01/06/19 10:30 DCW (Rec: 01/06/19 11:16 DCW [id number]) Out-Patient Physical Therapy Visit Information Visit Information Visit Type Treatment Note Visit Start Time 10:30 Visit Stop Time 11:15 Total Visit Minutes 45 Number of SURVEILLANCE SPECIALIST Visits 0 PT-OP-C Subjective Start: 08/19/17 08:09 Freq: Status: Active Protocol: Document 01/06/19 10:30 DCW (Rec: 01/06/19 11:16 DCW [id number]) OP-PT Subjective Patient Comments Patient Comments Pt reports his arm is worn out from OT. PT-OP-E Functional Tests Start: 01/21/18 14:41 Freq: Status: Active Protocol: Document 05/25/18 15:15 DCW (Rec: 05/25/18 15:58 DCW [id number]) Functional Tests 6 Minute Walk Test Distance 904 Device Used AFO Dynamic Gait Index (DGI) Score 18/24 DGI Impairment Rating 20 to <40% Impaired (Score 15- 19) Functional Gait Assessment Score 18/30 Functional Gait Assessment Impairment 40 to <60% Impaired (Score 13- Rating 18) PT-OP-F Manual Assessment Start: 02/12/18 13:26 Freq: Status: Active Protocol: Document 05/25/18 15:15 DCW (Rec: 05/25/18 17:56 DCW [id number]) Manual Assessments Joint Mobility Assessment Joint Mobility Assessment Pt no longer experiencing ankle pain/limitations PT-OP-G Mobility & Gait Start: 01/21/18 14:41 Freq: Status: Active Protocol: Document 05/25/18 15:15 DCW (Rec: 05/25/18 17:56 DCW [id number]) OP Mobility Evaluation Transfers Floor Transfers Modified independent with SPC Functional Movements Other Functional Movements Stepping over 6 object: Independent leading with both left or right foot PT-OP-Q Treatments Start: 08/19/17 08:09 Freq: Status: Active Protocol: Document 01/06/19 10:30 DCW (Rec: 01/06/19 11:16 DCW [id number]) Cardio Equipment Elliptical Duration (Minutes) 5 Resistance 6 Other incorporation of UE's; low hold, manual assist right Gym Equipment Shuttle Balance Red Details Wide DONNA, Staggered Stance Comments PVC Sword fighting, tandem stance along fulcrum /c balloon volley Therapeutic Exercises Standing Exercises squats Resistance L1 TB around lower thighs to facilitation hip ER Reps/Minutes 20x Comments mirror for visual feedback UE arm swing for gait Standing Exercise Name Pendulums Comments Promote R arm swing Gait Training Gait Activity arm swing component Treatment Focus R arm swing without entire shoulder complex/torso movement Comments manual cues for arm swing while walking laps Neuro Re-Education Treatment Balance Activities 2 Details Toe-taps on BOSU Comments /s UE support 1 Details Step-ups onto BOSU Comments UE support PT-OP-R Modalities Start: 08/19/17 08:09 Freq: Status: Active Protocol: Document 12/31/17 13:33 LRN (Rec: 12/31/17 14:41 LRN [id number]) Electric Stimulation Electric Stimulation Micronesian Stimulation Duration (Minutes) 10 Intensity 39 Contraction Type Normal High/Low High Cycle 10/10 Patient Position Sitting Comments Electrodes on R anterior tib for ankle DF PT-OP-S Aquatic Treatment Start: 09/27/17 14:34 Freq: Status: Active Protocol: Document 11/22/17 13:00 TMS (Rec: 11/22/17 16:26 TMS [email or web address]) Aquatics Treatment Pool Entry/Exit Pool Entry/Exit Method Stairs Assistance Standby Assistance Water Walking Forwards Water Level Chest Level Level of Assistance Standby Assistance Comments Cues, with and without fins. Lower Extremity Exercises 5 Details Single leg standing Body Position Standing Water Level Chest Level 1 Details Right hip AB/AD. Body Position Standing Water Level Chest Level Lower Extremity Stretches 1 Details Gastroc stretching Body Position Standing Water Level Waist Level Comments Manual assist Upper Extremity Stretches 1 Details Horizontal AB/AD Body Position Standing Water Level Chest Level Equipment Large resistance barbells Reps/Duration x 15 reps Swim Strokes Flutter Equipment Fins,Kickboard Comments Min-A Backstroke Other Equipment Used With and without fins Comments 5 minutes PT-OP-T Assessment and Plan Start: 08/19/17 08:09 Freq: Status: Active Protocol: Document 01/06/19 10:30 DCW (Rec: 01/06/19 11:16 DCW [id number]) Physical Therapy Assessment Goals Seven Impairment gait mechanics Alf Goal (LTG) Josiah will demonstrate 50% decrease in compensatory strategies in his gait which include excessive right hip inversion, excessive right trunk sidebending, lack of arm swing 11/17/18: goal progress LTG Duration 02/22/19 Six Impairment gait Courier Goal (LTG) Josiah will be able to safely walk on uneven surfaces with use of soft ankle brace instead of his metal AFO including in his garden. 11/17/18: excellent goal progress, mostly met LTG Duration 02/22/19 Five Impairment strength Courier Goal (LTG) Patient will improve his LE strength to be able to step over a 6 on bject independently and safely with either LE without catching foot or losing balance LTG Duration MET Four Impairment functional mobility Courier Goal (LTG) Patient able to perform car transfers and floor transfers with ease, without loss of balance to improve his safety and quality of life LTG Duration MET Three Impairment Patient education Courier Goal (LTG) Progress HEP, patient to be independent and compliant with updated HEP as his function continues to improve 11/17/18: ongoing progress LTG Duration 02/22/19 Two Impairment balance Courier Goal (LTG) Improve Dynamic gait index to 19 or greater out of 24 for decreased fall risk 08/22/18: . new goal of 11/22/18: LTG Duration 02/22/19 One Impairment functional mobility/gait Alf Goal (LTG) Patient to improve 6 min walk test test to 1200 feet. 08/22/18: goal progress at 1025 ft 11/17/18 goal progress 1t 1085 ft LTG Duration 02/22/19 Assessment Summary Assessment Pt's UE very fatigued from OT, had difficulty using it for various activities, however is showing progress with arm swing during ambulation Physical Therapy Plan Frequency and Duration Frequency of Treatment 2x/Week Duration of Treatment 3 months Plan of Care Start Date 11/22/18 Plan of Care End Date 02/22/19 Therapeutic Interventions Therapeutic Interventions Aquatic Therapy,Balance Training,Gait Training,Home Exercise Program,Neuromuscular Re-education,Patient/ Caregiver Education,Self-Care/ Home Management,Therapeutic Activities,Therapeutic Exercises Next Visit Focus/Plan Next Note Type Treatment Note Next Visit Plan Continue PT per POC, emphasis on gait training, balance, LE strengthening.
--- NOTE | 2019-01-13 16:00 | PT.OTN ---
Current Diagnoses Spastic hemiplegia affecting right dominant side (01/13/19) Cerebral infarction due to unspecified occlusion or stenosis of left middle cerebral artery (01/13/19) Repeated falls (01/13/19) Apraxia (01/13/19) Weakness (01/13/19) Physical Therapy Treatment Note PT-OP-A Visit Information Start: 08/19/17 08:09 Freq: Status: Active Protocol: Document 01/13/19 15:15 DCW (Rec: 01/13/19 16:00 DCW [id number]) Out-Patient Physical Therapy Visit Information Visit Information Visit Type Treatment Note Visit Start Time 15:15 Visit Stop Time 16:00 Total Visit Minutes 45 Number of HIMS MANAGER Visits 0 PT-OP-C Subjective Start: 08/19/17 08:09 Freq: Status: Active Protocol: Document 01/13/19 15:15 DCW (Rec: 01/13/19 16:00 DCW [id number]) OP-PT Subjective Patient Comments Patient Comments Pt is doing well today. States he just started new college classes this week. Has noticed that he has gotten a whole lot faster in my walking since four days ago by walking from class to class and getting to the bus on time. PT-OP-E Functional Tests Start: 01/21/18 14:41 Freq: Status: Active Protocol: Document 05/25/18 15:15 DCW (Rec: 05/25/18 15:58 DCW [id number]) Functional Tests 6 Minute Walk Test Distance 904 Device Used AFO Dynamic Gait Index (DGI) Score 18/24 DGI Impairment Rating 20 to <40% Impaired (Score 15- 19) Functional Gait Assessment Score 18/30 Functional Gait Assessment Impairment 40 to <60% Impaired (Score 13- Rating 18) PT-OP-F Manual Assessment Start: 02/12/18 13:26 Freq: Status: Active Protocol: Document 05/25/18 15:15 DCW (Rec: 05/25/18 17:56 DCW [id number]) Manual Assessments Joint Mobility Assessment Joint Mobility Assessment Pt no longer experiencing ankle pain/limitations PT-OP-G Mobility & Gait Start: 01/21/18 14:41 Freq: Status: Active Protocol: Document 05/25/18 15:15 DCW (Rec: 05/25/18 17:56 DCW [id number]) OP Mobility Evaluation Transfers Floor Transfers Modified independent with SPC Functional Movements Other Functional Movements Stepping over 6 object: Independent leading with both left or right foot PT-OP-Q Treatments Start: 08/19/17 08:09 Freq: Status: Active Protocol: Document 01/13/19 15:15 DCW (Rec: 01/13/19 16:00 DCW [id number]) Cardio Equipment Elliptical Duration (Minutes) 5 Resistance 6 Other incorporation of UE's; low hold, manual assist right Gym Equipment Shuttle Balance Red Details Wide DONNA, Staggered Stance Comments PVC Sword fighting, tandem stance along fulcrum /c balloon volley Sport Cord 1 Exercise Details side Cord/Resistance green Comments over hurdles Therapeutic Exercises Standing Exercises lateral walks Standing Exercise Name Resisted side-stepping Resistance Green Equipment Used T-band PT-OP-R Modalities Start: 08/19/17 08:09 Freq: Status: Active Protocol: Document 12/31/17 13:33 LRN (Rec: 12/31/17 14:41 LRN [id number]) Electric Stimulation Electric Stimulation [place] Stimulation Duration (Minutes) 10 Intensity 39 Contraction Type Normal High/Low High Cycle 10/10 Patient Position Sitting Comments Electrodes on R anterior tib for ankle DF PT-OP-S Aquatic Treatment Start: 09/27/17 14:34 Freq: Status: Active Protocol: Document 11/22/17 13:00 TMS (Rec: 11/22/17 16:26 TMS [id number]) Aquatics Treatment Pool Entry/Exit Pool Entry/Exit Method Stairs Assistance Standby Assistance Water Walking Forwards Water Level Chest Level Level of Assistance Standby Assistance Comments Cues, with and without fins. Lower Extremity Exercises 5 Details Single leg standing Body Position Standing Water Level Chest Level 1 Details Right hip AB/AD. Body Position Standing Water Level Chest Level Lower Extremity Stretches 1 Details Gastroc stretching Body Position Standing Water Level Waist Level Comments Manual assist Upper Extremity Stretches 1 Details Horizontal AB/AD Body Position Standing Water Level Chest Level Equipment Large resistance barbells Reps/Duration x 15 reps Swim Strokes Flutter Equipment Fins,Kickboard Comments Min-A Backstroke Other Equipment Used With and without fins Comments 5 minutes PT-OP-T Assessment and Plan Start: 08/19/17 08:09 Freq: Status: Active Protocol: Document 01/13/19 15:15 DCW (Rec: 01/13/19 16:00 DCW [id number]) Physical Therapy Assessment Goals Seven Impairment gait mechanics Snf Goal (LTG) Josiah will demonstrate 50% decrease in compensatory strategies in his gait which include excessive right hip inversion, excessive right trunk sidebending, lack of arm swing 11/17/18: goal progress LTG Duration 02/22/19 Six Impairment gait Snf Goal (LTG) Josiah will be able to safely walk on uneven surfaces with use of soft ankle brace instead of his metal AFO including in his garden. 11/17/18: excellent goal progress, mostly met LTG Duration 02/22/19 Five Impairment strength Snf Goal (LTG) Patient will improve his LE strength to be able to step over a 6 on bject independently and safely with either LE without catching foot or losing balance LTG Duration MET Four Impairment functional mobility Snf Goal (LTG) Patient able to perform car transfers and floor transfers with ease, without loss of balance to improve his safety and quality of life LTG Duration MET Three Impairment Patient education Gas Operations Analyst Goal (LTG) Progress HEP, patient to be independent and compliant with updated HEP as his function continues to improve 11/17/18: ongoing progress LTG Duration 02/22/19 Two Impairment balance Snf Goal (LTG) Improve Dynamic gait index to 19 or greater out of 24 for decreased fall risk 08/22/18: . new goal of 11/22/18: LTG Duration 02/22/19 One Impairment functional mobility/gait Gas Operations Analyst Goal (LTG) Patient to improve 6 min walk test test to 1200 feet. 08/22/18: goal progress at 1025 ft 11/17/18 goal progress 1t 1085 ft LTG Duration 02/22/19 Assessment Summary Assessment Much less fatigue in pt's UE today, able to fully participate in PT activities. Pt doing very well with balance, although still has low confidence with activities that require SLS or step-ups. Physical Therapy Plan Frequency and Duration Frequency of Treatment 2x/Week Duration of Treatment 3 months Plan of Care Start Date 11/22/18 Plan of Care End Date 02/22/19 Therapeutic Interventions Therapeutic Interventions Aquatic Therapy,Balance Training,Gait Training,Home Exercise Program,Neuromuscular Re-education,Patient/ Caregiver Education,Self-Care/ Home Management,Therapeutic Activities,Therapeutic Exercises Next Visit Focus/Plan Next Note Type Treatment Note Next Visit Plan Continue PT per POC, emphasis on gait training, balance, LE strengthening.
--- NOTE | 2019-01-20 14:33 | PT.OTN ---
Current Diagnoses Spastic hemiplegia affecting right dominant side (01/20/19) Cerebral infarction due to unspecified occlusion or stenosis of left middle cerebral artery (01/20/19) Repeated falls (01/20/19) Apraxia (01/20/19) Weakness (01/20/19) Physical Therapy Treatment Note PT-OP-A Visit Information Start: 08/19/17 08:09 Freq: Status: Active Protocol: Document 01/20/19 13:50 DCW (Rec: 01/20/19 14:33 DCW [id number]) Out-Patient Physical Therapy Visit Information Visit Information Visit Type Treatment Note Visit Start Time 13:50 Visit Stop Time 14:30 Total Visit Minutes 40 Number of GLUE COOK Visits 0 PT-OP-C Subjective Start: 08/19/17 08:09 Freq: Status: Active Protocol: Document 01/20/19 13:50 DCW (Rec: 01/20/19 14:33 DCW [id number]) OP-PT Subjective Patient Comments Patient Comments Pt just coming from his classes today, where he had tests. Pt feels they went very well. PT-OP-E Functional Tests Start: 01/21/18 14:41 Freq: Status: Active Protocol: Document 05/25/18 15:15 DCW (Rec: 05/25/18 15:58 DCW [id number]) Functional Tests 6 Minute Walk Test Distance 904 Device Used AFO Dynamic Gait Index (DGI) Score 18/24 DGI Impairment Rating 20 to <40% Impaired (Score 15- 19) Functional Gait Assessment Score 18/30 Functional Gait Assessment Impairment 40 to <60% Impaired (Score 13- Rating 18) PT-OP-F Manual Assessment Start: 02/12/18 13:26 Freq: Status: Active Protocol: Document 05/25/18 15:15 DCW (Rec: 05/25/18 17:56 DCW [id number]) Manual Assessments Joint Mobility Assessment Joint Mobility Assessment Pt no longer experiencing ankle pain/limitations PT-OP-G Mobility & Gait Start: 01/21/18 14:41 Freq: Status: Active Protocol: Document 05/25/18 15:15 DCW (Rec: 05/25/18 17:56 DCW [id number]) OP Mobility Evaluation Transfers Floor Transfers Modified independent with SPC Functional Movements Other Functional Movements Stepping over 6 object: Independent leading with both left or right foot PT-OP-Q Treatments Start: 08/19/17 08:09 Freq: Status: Active Protocol: Document 01/20/19 13:50 DCW (Rec: 01/20/19 14:33 DCW [id number]) Cardio Equipment Elliptical Duration (Minutes) 5 Resistance 6 Other incorporation of UE's; low hold, manual assist right Gym Equipment Shuttle Balance Red Details Wide DONNA, Staggered Stance Comments PVC Sword fighting, tandem stance along fulcrum Sport Cord 1 Exercise Details side Cord/Resistance blue Comments over hurdles PT-OP-R Modalities Start: 08/19/17 08:09 Freq: Status: Active Protocol: Document 12/31/17 13:33 LRN (Rec: 12/31/17 14:41 LRN [id number]) Electric Stimulation Electric Stimulation [place] Stimulation Duration (Minutes) 10 Intensity 39 Contraction Type Normal High/Low High Cycle 10/10 Patient Position Sitting Comments Electrodes on R anterior tib for ankle DF PT-OP-S Aquatic Treatment Start: 09/27/17 14:34 Freq: Status: Active Protocol: Document 11/22/17 13:00 TMS (Rec: 11/22/17 16:26 TMS [id number]) Aquatics Treatment Pool Entry/Exit Pool Entry/Exit Method Stairs Assistance Standby Assistance Water Walking Forwards Water Level Chest Level Level of Assistance Standby Assistance Comments Cues, with and without fins. Lower Extremity Exercises 5 Details Single leg standing Body Position Standing Water Level Chest Level 1 Details Right hip AB/AD. Body Position Standing Water Level Chest Level Lower Extremity Stretches 1 Details Gastroc stretching Body Position Standing Water Level Waist Level Comments Manual assist Upper Extremity Stretches 1 Details Horizontal AB/AD Body Position Standing Water Level Chest Level Equipment Large resistance barbells Reps/Duration x 15 reps Swim Strokes Flutter Equipment Fins,Kickboard Comments Min-A Backstroke Other Equipment Used With and without fins Comments 5 minutes PT-OP-T Assessment and Plan Start: 08/19/17 08:09 Freq: Status: Active Protocol: Document 01/20/19 13:50 DCW (Rec: 01/20/19 14:33 DCW [id number]) Physical Therapy Assessment Goals Seven Impairment gait mechanics [facility] Goal (LTG) Josiah will demonstrate 50% decrease in compensatory strategies in his gait which include excessive right hip inversion, excessive right trunk sidebending, lack of arm swing 11/17/18: goal progress LTG Duration 02/22/19 Six Impairment gait Rubber Gasket Inspector Trimmer Goal (LTG) Josiah will be able to safely walk on uneven surfaces with use of soft ankle brace instead of his metal AFO including in his garden. 11/17/18: excellent goal progress, mostly met LTG Duration 02/22/19 Five Impairment strength [facility] Goal (LTG) Patient will improve his LE strength to be able to step over a 6 on bject independently and safely with either LE without catching foot or losing balance LTG Duration MET Four Impairment functional mobility [facility] Goal (LTG) Patient able to perform car transfers and floor transfers with ease, without loss of balance to improve his safety and quality of life LTG Duration MET Three Impairment Patient education [facility] Goal (LTG) Progress HEP, patient to be independent and compliant with updated HEP as his function continues to improve 11/17/18: ongoing progress LTG Duration 02/22/19 Two Impairment balance Rubber Gasket Inspector Trimmer Goal (LTG) Improve Dynamic gait index to 19 or greater out of 24 for decreased fall risk 08/22/18: . new goal of 11/22/18: LTG Duration 02/22/19 One Impairment functional mobility/gait Rubber Gasket Inspector Trimmer Goal (LTG) Patient to improve 6 min walk test test to 1200 feet. 08/22/18: goal progress at 1025 ft 11/17/18 goal progress 1t 1085 ft LTG Duration 02/22/19 Assessment Summary Assessment Pt did well today, although he obviously had a much harder time with the increased SportCord resistance. Physical Therapy Plan Frequency and Duration Frequency of Treatment 2x/Week Duration of Treatment 3 months Plan of Care Start Date 11/22/18 Plan of Care End Date 02/22/19 Therapeutic Interventions Therapeutic Interventions Aquatic Therapy,Balance Training,Gait Training,Home Exercise Program,Neuromuscular Re-education,Patient/ Caregiver Education,Self-Care/ Home Management,Therapeutic Activities,Therapeutic Exercises Next Visit Focus/Plan Next Note Type Treatment Note Next Visit Plan Continue PT per POC, emphasis on gait training, balance, LE strengthening.
--- NOTE | 2019-01-30 17:35 | PT.OTN ---
Current Diagnoses Spastic hemiplegia affecting right dominant side (01/30/19) Cerebral infarction due to unspecified occlusion or stenosis of left middle cerebral artery (01/30/19) Repeated falls (01/30/19) Apraxia (01/30/19) Weakness (01/30/19) Physical Therapy Treatment Note PT-OP-A Visit Information Start: 08/19/17 08:09 Freq: Status: Active Protocol: Document 01/30/19 16:55 DCW (Rec: 01/30/19 17:32 DCW [id number]) Out-Patient Physical Therapy Visit Information Visit Information Visit Type Treatment Note Visit Note Arrived 5 minutes late Visit Start Time 16:55 Visit Stop Time 17:30 Total Visit Minutes 35 Number of LIGHT ARMORED RECONNAISSANCE OFFICER Visits 0 PT-OP-C Subjective Start: 08/19/17 08:09 Freq: Status: Active Protocol: Document 01/30/19 16:55 DCW (Rec: 01/30/19 17:32 DCW [id number]) OP-PT Subjective Patient Comments Patient Comments Pt reports he is doing well today. PT-OP-E Functional Tests Start: 01/21/18 14:41 Freq: Status: Active Protocol: Document 05/25/18 15:15 DCW (Rec: 05/25/18 15:58 DCW [id number]) Functional Tests 6 Minute Walk Test Distance 904 Device Used AFO Dynamic Gait Index (DGI) Score 18/24 DGI Impairment Rating 20 to <40% Impaired (Score 15- 19) Functional Gait Assessment Score 18/30 Functional Gait Assessment Impairment 40 to <60% Impaired (Score 13- Rating 18) PT-OP-F Manual Assessment Start: 02/12/18 13:26 Freq: Status: Active Protocol: Document 05/25/18 15:15 DCW (Rec: 05/25/18 17:56 DCW [id number]) Manual Assessments Joint Mobility Assessment Joint Mobility Assessment Pt no longer experiencing ankle pain/limitations PT-OP-G Mobility & Gait Start: 01/21/18 14:41 Freq: Status: Active Protocol: Document 05/25/18 15:15 DCW (Rec: 05/25/18 17:56 DCW [id number]) OP Mobility Evaluation Transfers Floor Transfers Modified independent with SPC Functional Movements Other Functional Movements Stepping over 6 object: Independent leading with both left or right foot PT-OP-Q Treatments Start: 08/19/17 08:09 Freq: Status: Active Protocol: Document 01/30/19 16:55 DCW (Rec: 01/30/19 17:32 DCW [id number]) Cardio Equipment Elliptical Duration (Minutes) 5 Resistance 6 Other incorporation of UE's; low hold, manual assist right Gym Equipment Shuttle Balance Red Details Wide DONNA, Staggered Stance Comments PVC Sword fighting, tandem stance along fulcrum Sport Cord 1 Exercise Details side Cord/Resistance blue Comments over hurdles Neuro Re-Education Treatment Balance Activities DL BOSU Details BOSU Stance Surface Blue BOSU Comments Eyes open/closed PT-OP-R Modalities Start: 08/19/17 08:09 Freq: Status: Active Protocol: Document 12/31/17 13:33 LRN (Rec: 12/31/17 14:41 LRN [id number]) Electric Stimulation Electric Stimulation Malagasy Stimulation Duration (Minutes) 10 Intensity 39 Contraction Type Normal High/Low High Cycle 10/10 Patient Position Sitting Comments Electrodes on R anterior tib for ankle DF PT-OP-S Aquatic Treatment Start: 09/27/17 14:34 Freq: Status: Active Protocol: Document 11/22/17 13:00 TMS (Rec: 11/22/17 16:26 TMS [id number]) Aquatics Treatment Pool Entry/Exit Pool Entry/Exit Method Stairs Assistance Standby Assistance Water Walking Forwards Water Level Chest Level Level of Assistance Standby Assistance Comments Cues, with and without fins. Lower Extremity Exercises 5 Details Single leg standing Body Position Standing Water Level Chest Level 1 Details Right hip AB/AD. Body Position Standing Water Level Chest Level Lower Extremity Stretches 1 Details Gastroc stretching Body Position Standing Water Level Waist Level Comments Manual assist Upper Extremity Stretches 1 Details Horizontal AB/AD Body Position Standing Water Level Chest Level Equipment Large resistance barbells Reps/Duration x 15 reps Swim Strokes Flutter Equipment Fins,Kickboard Comments Min-A Backstroke Other Equipment Used With and without fins Comments 5 minutes PT-OP-T Assessment and Plan Start: 08/19/17 08:09 Freq: Status: Active Protocol: Document 01/30/19 16:55 DCW (Rec: 01/30/19 17:32 DCW [id number]) Physical Therapy Assessment Goals Seven Impairment gait mechanics Clinical Tech Goal (LTG) Josiah will demonstrate 50% decrease in compensatory strategies in his gait which include excessive right hip inversion, excessive right trunk sidebending, lack of arm swing 11/17/18: goal progress LTG Duration 02/22/19 Six Impairment gait Shelter Goal (LTG) Josiah will be able to safely walk on uneven surfaces with use of soft ankle brace instead of his metal AFO including in his garden. 11/17/18: excellent goal progress, mostly met LTG Duration 02/22/19 Five Impairment strength Clinical Tech Goal (LTG) Patient will improve his LE strength to be able to step over a 6 on bject independently and safely with either LE without catching foot or losing balance LTG Duration MET Four Impairment functional mobility Clinical Tech Goal (LTG) Patient able to perform car transfers and floor transfers with ease, without loss of balance to improve his safety and quality of life LTG Duration MET Three Impairment Patient education Clinical Tech Goal (LTG) Progress HEP, patient to be independent and compliant with updated HEP as his function continues to improve 11/17/18: ongoing progress LTG Duration 02/22/19 Two Impairment balance Shelter Goal (LTG) Improve Dynamic gait index to 19 or greater out of 24 for decreased fall risk 08/22/18: . new goal of 11/22/18: LTG Duration 02/22/19 One Impairment functional mobility/gait Clinical Tech Goal (LTG) Patient to improve 6 min walk test test to 1200 feet. 08/22/18: goal progress at 1025 ft 11/17/18 goal progress 1t 1085 ft LTG Duration 02/22/19 Assessment Summary Assessment Pt improving his ability to control his right arm while standing on Shuttle Balance, better quality of PVC movement . Physical Therapy Plan Frequency and Duration Frequency of Treatment 2x/Week Duration of Treatment 3 months Plan of Care Start Date 11/22/18 Plan of Care End Date 02/22/19 Therapeutic Interventions Therapeutic Interventions Aquatic Therapy,Balance Training,Gait Training,Home Exercise Program,Neuromuscular Re-education,Patient/ Caregiver Education,Self-Care/ Home Management,Therapeutic Activities,Therapeutic Exercises Next Visit Focus/Plan Next Note Type Treatment Note Next Visit Plan Continue PT per POC, emphasis on gait training, balance, LE strengthening.
--- NOTE | 2019-02-08 14:29 | PT.OTN ---
Current Diagnoses Spastic hemiplegia affecting right dominant side (02/08/19) Cerebral infarction due to unspecified occlusion or stenosis of left middle cerebral artery (02/08/19) Repeated falls (02/08/19) Apraxia (02/08/19) Weakness (02/08/19) Physical Therapy Treatment Note PT-OP-A Visit Information Start: 08/19/17 08:09 Freq: Status: Active Protocol: Document 02/08/19 13:47 DCW (Rec: 02/08/19 14:29 DCW [id number]) Out-Patient Physical Therapy Visit Information Visit Information Visit Type Treatment Note Visit Start Time 13:47 Visit Stop Time 14:30 Total Visit Minutes 43 Number of MANAGER GYN Visits 0 PT-OP-C Subjective Start: 08/19/17 08:09 Freq: Status: Active Protocol: Document 02/08/19 13:47 DCW (Rec: 02/08/19 14:29 DCW [id number]) OP-PT Subjective Patient Comments Patient Comments Pt reports his ankle has been bothering him more than normal over the last month. PT-OP-E Functional Tests Start: 01/21/18 14:41 Freq: Status: Active Protocol: Document 05/25/18 15:15 DCW (Rec: 05/25/18 15:58 DCW [id number]) Functional Tests 6 Minute Walk Test Distance 904 Device Used AFO Dynamic Gait Index (DGI) Score 18/24 DGI Impairment Rating 20 to <40% Impaired (Score 15- 19) Functional Gait Assessment Score 18/30 Functional Gait Assessment Impairment 40 to <60% Impaired (Score 13- Rating 18) PT-OP-F Manual Assessment Start: 02/12/18 13:26 Freq: Status: Active Protocol: Document 05/25/18 15:15 DCW (Rec: 05/25/18 17:56 DCW [id number]) Manual Assessments Joint Mobility Assessment Joint Mobility Assessment Pt no longer experiencing ankle pain/limitations PT-OP-G Mobility & Gait Start: 01/21/18 14:41 Freq: Status: Active Protocol: Document 05/25/18 15:15 DCW (Rec: 05/25/18 17:56 DCW [id number]) OP Mobility Evaluation Transfers Floor Transfers Modified independent with SPC Functional Movements Other Functional Movements Stepping over 6 object: Independent leading with both left or right foot PT-OP-Q Treatments Start: 08/19/17 08:09 Freq: Status: Active Protocol: Document 02/08/19 13:47 DCW (Rec: 02/08/19 14:29 DCW [id number]) Cardio Equipment Elliptical Duration (Minutes) 5 Resistance 6 Other incorporation of UE's; low hold, manual assist right Gym Equipment Shuttle Balance Red Details Wide DONNA, Staggered Stance Comments PVC Sword fighting, tandem stance along fulcrum Sport Cord 1 Exercise Details pull back, side Cord/Resistance blue Comments toe taps on 8 step Neuro Re-Education Treatment Balance Activities DL BOSU Details BOSU Stance Surface Blue BOSU Comments Eyes open/closed PT-OP-R Modalities Start: 08/19/17 08:09 Freq: Status: Active Protocol: Document 12/31/17 13:33 LRN (Rec: 12/31/17 14:41 LRN [id number]) Electric Stimulation Electric Stimulation Bhutanese Stimulation Duration (Minutes) 10 Intensity 39 Contraction Type Normal High/Low High Cycle 10/10 Patient Position Sitting Comments Electrodes on R anterior tib for ankle DF PT-OP-S Aquatic Treatment Start: 09/27/17 14:34 Freq: Status: Active Protocol: Document 11/22/17 13:00 TMS (Rec: 11/22/17 16:26 TMS [id number]) Aquatics Treatment Pool Entry/Exit Pool Entry/Exit Method Stairs Assistance Standby Assistance Water Walking Forwards Water Level Chest Level Level of Assistance Standby Assistance Comments Cues, with and without fins. Lower Extremity Exercises 5 Details Single leg standing Body Position Standing Water Level Chest Level 1 Details Right hip AB/AD. Body Position Standing Water Level Chest Level Lower Extremity Stretches 1 Details Gastroc stretching Body Position Standing Water Level Waist Level Comments Manual assist Upper Extremity Stretches 1 Details Horizontal AB/AD Body Position Standing Water Level Chest Level Equipment Large resistance barbells Reps/Duration x 15 reps Swim Strokes Flutter Equipment Fins,Kickboard Comments Min-A Backstroke Other Equipment Used With and without fins Comments 5 minutes PT-OP-T Assessment and Plan Start: 08/19/17 08:09 Freq: Status: Active Protocol: Document 02/08/19 13:47 DCW (Rec: 02/08/19 14:29 DCW [id number]) Physical Therapy Assessment Goals Seven Impairment gait mechanics Assisted Goal (LTG) Josiah will demonstrate 50% decrease in compensatory strategies in his gait which include excessive right hip inversion, excessive right trunk sidebending, lack of arm swing 11/17/18: goal progress LTG Duration 02/22/19 Six Impairment gait Mapping Analyst Goal (LTG) Josiah will be able to safely walk on uneven surfaces with use of soft ankle brace instead of his metal AFO including in his garden. 11/17/18: excellent goal progress, mostly met LTG Duration 02/22/19 Five Impairment strength Mapping Analyst Goal (LTG) Patient will improve his LE strength to be able to step over a 6 on bject independently and safely with either LE without catching foot or losing balance LTG Duration MET Four Impairment functional mobility Mapping Analyst Goal (LTG) Patient able to perform car transfers and floor transfers with ease, without loss of balance to improve his safety and quality of life LTG Duration MET Three Impairment Patient education Mapping Analyst Goal (LTG) Progress HEP, patient to be independent and compliant with updated HEP as his function continues to improve 11/17/18: ongoing progress LTG Duration 02/22/19 Two Impairment balance Assisted Goal (LTG) Improve Dynamic gait index to 19 or greater out of 24 for decreased fall risk 08/22/18: . new goal of 11/22/18: LTG Duration 02/22/19 One Impairment functional mobility/gait Mapping Analyst Goal (LTG) Patient to improve 6 min walk test test to 1200 feet. 08/22/18: goal progress at 1025 ft 11/17/18 goal progress 1t 1085 ft LTG Duration 02/22/19 Assessment Summary Assessment Pt did very well today, improving his balance with Sport Cord. Pt able to tolerate all activities without increased ankle pain. Physical Therapy Plan Frequency and Duration Frequency of Treatment 2x/Week Duration of Treatment 3 months Plan of Care Start Date 11/22/18 Plan of Care End Date 02/22/19 Therapeutic Interventions Therapeutic Interventions Aquatic Therapy,Balance Training,Gait Training,Home Exercise Program,Neuromuscular Re-education,Patient/ Caregiver Education,Self-Care/ Home Management,Therapeutic Activities,Therapeutic Exercises Next Visit Focus/Plan Next Note Type Treatment Note Next Visit Plan Continue PT per POC, emphasis on gait training, balance, LE strengthening.
--- NOTE | 2019-02-17 14:31 | PT.OTN ---
Current Diagnoses Spastic hemiplegia affecting right dominant side (02/17/19) Cerebral infarction due to unspecified occlusion or stenosis of left middle cerebral artery (02/17/19) Repeated falls (02/17/19) Apraxia (02/17/19) Weakness (02/17/19) Physical Therapy Treatment Note PT-OP-A Visit Information Start: 08/19/17 08:09 Freq: Status: Active Protocol: Document 02/17/19 13:50 DCW (Rec: 02/17/19 14:30 DCW [id number]) Out-Patient Physical Therapy Visit Information Visit Information Visit Type Treatment Note Visit Start Time 13:50 Visit Stop Time 14:30 Total Visit Minutes 40 Number of MECHANICAL DETAILER Visits 0 PT-OP-C Subjective Start: 08/19/17 08:09 Freq: Status: Active Protocol: Document 02/17/19 13:50 DCW (Rec: 02/17/19 14:30 DCW [id number]) OP-PT Subjective Patient Comments Patient Comments Everything feels fine, no pain. PT-OP-E Functional Tests Start: 01/21/18 14:41 Freq: Status: Active Protocol: Document 05/25/18 15:15 DCW (Rec: 05/25/18 15:58 DCW [id number]) Functional Tests 6 Minute Walk Test Distance 904 Device Used AFO Dynamic Gait Index (DGI) Score 18/24 DGI Impairment Rating 20 to <40% Impaired (Score 15- 19) Functional Gait Assessment Score 18/30 Functional Gait Assessment Impairment 40 to <60% Impaired (Score 13- Rating 18) PT-OP-F Manual Assessment Start: 02/12/18 13:26 Freq: Status: Active Protocol: Document 05/25/18 15:15 DCW (Rec: 05/25/18 17:56 DCW [id number]) Manual Assessments Joint Mobility Assessment Joint Mobility Assessment Pt no longer experiencing ankle pain/limitations PT-OP-G Mobility & Gait Start: 01/21/18 14:41 Freq: Status: Active Protocol: Document 05/25/18 15:15 DCW (Rec: 05/25/18 17:56 DCW [id number]) OP Mobility Evaluation Transfers Floor Transfers Modified independent with SPC Functional Movements Other Functional Movements Stepping over 6 object: Independent leading with both left or right foot PT-OP-Q Treatments Start: 08/19/17 08:09 Freq: Status: Active Protocol: Document 02/17/19 13:50 DCW (Rec: 02/17/19 14:30 DCW [id number]) Cardio Equipment Elliptical Duration (Minutes) 5 Resistance 6 Other incorporation of UE's; low hold, manual assist right Gym Equipment Shuttle Balance Red Details Wide DONNA, Staggered Stance Comments PVC Sword fighting, tandem stance along fulcrum Therapeutic Exercises Standing Exercises lateral walks Standing Exercise Name Resisted side-stepping Resistance Green Equipment Used T-band step-ups Standing Exercise Name onto step Equipment Used 8 step Comments Right stays on step 3 Standing Exercise Name Eccentric single leg heel raises Neuro Re-Education Treatment Balance Activities DL BOSU Details BOSU Stance Surface Blue BOSU Comments Eyes open/closed PT-OP-R Modalities Start: 08/19/17 08:09 Freq: Status: Active Protocol: Document 12/31/17 13:33 LRN (Rec: 12/31/17 14:41 LRN [id number]) Electric Stimulation Electric Stimulation Filipino Stimulation Duration (Minutes) 10 Intensity 39 Contraction Type Normal High/Low High Cycle 10/10 Patient Position Sitting Comments Electrodes on R anterior tib for ankle DF PT-OP-S Aquatic Treatment Start: 09/27/17 14:34 Freq: Status: Active Protocol: Document 11/22/17 13:00 TMS (Rec: 11/22/17 16:26 TMS [id number]) Aquatics Treatment Pool Entry/Exit Pool Entry/Exit Method Stairs Assistance Standby Assistance Water Walking Forwards Water Level Chest Level Level of Assistance Standby Assistance Comments Cues, with and without fins. Lower Extremity Exercises 5 Details Single leg standing Body Position Standing Water Level Chest Level 1 Details Right hip AB/AD. Body Position Standing Water Level Chest Level Lower Extremity Stretches 1 Details Gastroc stretching Body Position Standing Water Level Waist Level Comments Manual assist Upper Extremity Stretches 1 Details Horizontal AB/AD Body Position Standing Water Level Chest Level Equipment Large resistance barbells Reps/Duration x 15 reps Swim Strokes Flutter Equipment Fins,Kickboard Comments Min-A Backstroke Other Equipment Used With and without fins Comments 5 minutes PT-OP-T Assessment and Plan Start: 08/19/17 08:09 Freq: Status: Active Protocol: Document 02/17/19 13:50 DCW (Rec: 02/17/19 14:30 DCW [id number]) Physical Therapy Assessment Goals Seven Impairment gait mechanics Retirement Goal (LTG) Josiah will demonstrate 50% decrease in compensatory strategies in his gait which include excessive right hip inversion, excessive right trunk sidebending, lack of arm swing 11/17/18: goal progress LTG Duration 02/22/19 Six Impairment gait Charge Entry Goal (LTG) Josiah will be able to safely walk on uneven surfaces with use of soft ankle brace instead of his metal AFO including in his garden. 11/17/18: excellent goal progress, mostly met LTG Duration 02/22/19 Five Impairment strength Charge Entry Goal (LTG) Patient will improve his LE strength to be able to step over a 6 on bject independently and safely with either LE without catching foot or losing balance LTG Duration MET Four Impairment functional mobility Charge Entry Goal (LTG) Patient able to perform car transfers and floor transfers with ease, without loss of balance to improve his safety and quality of life LTG Duration MET Three Impairment Patient education Retirement Goal (LTG) Progress HEP, patient to be independent and compliant with updated HEP as his function continues to improve 11/17/18: ongoing progress LTG Duration 02/22/19 Two Impairment balance Retirement Goal (LTG) Improve Dynamic gait index to 19 or greater out of 24 for decreased fall risk 08/22/18: . new goal of 11/22/18: LTG Duration 02/22/19 One Impairment functional mobility/gait Charge Entry Goal (LTG) Patient to improve 6 min walk test test to 1200 feet. 08/22/18: goal progress at 1025 ft 11/17/18 goal progress 1t 1085 ft LTG Duration 02/22/19 Assessment Summary Assessment Pt balance slowly improving, pt able to demonstrate better control/use of his right arm with PVC sword fighting, especially with pronation/ supination. Reassess objective measures next visit Physical Therapy Plan Frequency and Duration Frequency of Treatment 2x/Week Duration of Treatment 3 months Plan of Care Start Date 11/22/18 Plan of Care End Date 02/22/19 Therapeutic Interventions Therapeutic Interventions Aquatic Therapy,Balance Training,Gait Training,Home Exercise Program,Neuromuscular Re-education,Patient/ Caregiver Education,Self-Care/ Home Management,Therapeutic Activities,Therapeutic Exercises Next Visit Focus/Plan Next Note Type Progress Note Next Visit Plan Continue PT per POC, emphasis on gait training, balance, LE strengthening.
--- NOTE | 2019-03-03 17:13 | PT.OTN ---
Current Diagnoses Spastic hemiplegia affecting right dominant side (03/03/19) Cerebral infarction due to unspecified occlusion or stenosis of left middle cerebral artery (03/03/19) Repeated falls (03/03/19) Apraxia (03/03/19) Weakness (03/03/19) Physical Therapy Treatment Note PT-OP-A Visit Information Start: 08/19/17 08:09 Freq: Status: Active Protocol: Document 03/03/19 15:15 DCW (Rec: 03/03/19 17:13 DCW [id number]) Out-Patient Physical Therapy Visit Information Visit Information Visit Type Progress Note Visit Start Time 15:15 Visit Stop Time 16:00 Total Visit Minutes 45 Number of COLLECTIONS REP Visits 0 PT-OP-C Subjective Start: 08/19/17 08:09 Freq: Status: Active Protocol: Document 03/03/19 15:15 DCW (Rec: 03/03/19 17:13 DCW [id number]) OP-PT Subjective Patient Comments Patient Comments Pt feeling pretty good today, reports he recently did a Cancer Awareness walk with his grandfather, during which he walked 4.2 miles, and was very happy he was able to do this. PT-OP-E Functional Tests Start: 01/21/18 14:41 Freq: Status: Active Protocol: Document 03/03/19 15:15 DCW (Rec: 03/03/19 15:55 DCW [id number]) Functional Tests 6 Minute Walk Test Distance 954 Device Used Ankle Brace Dynamic Gait Index (DGI) Score 15/24 DGI Impairment Rating 20 to <40% Impaired (Score 15- 19) Functional Gait Assessment Score 15/30 Functional Gait Assessment Impairment 40 to <60% Impaired (Score 13- Rating 18) PT-OP-F Manual Assessment Start: 02/12/18 13:26 Freq: Status: Active Protocol: Document 03/03/19 15:15 DCW (Rec: 03/03/19 15:55 DCW [id number]) Manual Assessments Joint Mobility Assessment Joint Mobility Assessment Mild ankle pain, nothing that I can't deal with. PT-OP-G Mobility & Gait Start: 01/21/18 14:41 Freq: Status: Active Protocol: Document 03/03/19 15:15 DCW (Rec: 03/03/19 15:55 DCW [id number]) OP Gait Assessment Assistive Devices Assistive Device None,Straight Cane Comments Gait Comments SPC for school, amb in large stores. PT-OP-Q Treatments Start: 08/19/17 08:09 Freq: Status: Active Protocol: Document 03/03/19 15:15 DCW (Rec: 03/03/19 17:13 DCW [id number]) Cardio Equipment Elliptical Duration (Minutes) 5 Resistance 6 Other incorporation of UE's; low hold, manual assist right Neuro Re-Education Treatment Balance Activities 1 Details Testing Comments 6MWT, DGI, FGA PT-OP-R Modalities Start: 08/19/17 08:09 Freq: Status: Active Protocol: Document 12/31/17 13:33 LRN (Rec: 12/31/17 14:41 LRN [id number]) Electric Stimulation Electric Stimulation Senegalese Stimulation Duration (Minutes) 10 Intensity 39 Contraction Type Normal High/Low High Cycle 10/10 Patient Position Sitting Comments Electrodes on R anterior tib for ankle DF PT-OP-S Aquatic Treatment Start: 09/27/17 14:34 Freq: Status: Active Protocol: Document 11/22/17 13:00 TMS (Rec: 11/22/17 16:26 TMS [id number]) Aquatics Treatment Pool Entry/Exit Pool Entry/Exit Method Stairs Assistance Standby Assistance Water Walking Forwards Water Level Chest Level Level of Assistance Standby Assistance Comments Cues, with and without fins. Lower Extremity Exercises 5 Details Single leg standing Body Position Standing Water Level Chest Level 1 Details Right hip AB/AD. Body Position Standing Water Level Chest Level Lower Extremity Stretches 1 Details Gastroc stretching Body Position Standing Water Level Waist Level Comments Manual assist Upper Extremity Stretches 1 Details Horizontal AB/AD Body Position Standing Water Level Chest Level Equipment Large resistance barbells Reps/Duration x 15 reps Swim Strokes Flutter Equipment Fins,Kickboard Comments Min-A Backstroke Other Equipment Used With and without fins Comments 5 minutes PT-OP-T Assessment and Plan Start: 08/19/17 08:09 Freq: Status: Active Protocol: Document 03/03/19 15:15 DCW (Rec: 03/03/19 17:13 DCW [id number]) Physical Therapy Assessment Goals Seven Impairment gait mechanics Molybdenum Steamer Operator Goal (LTG) Josiah will demonstrate 50% decrease in compensatory strategies in his gait which include excessive right hip inversion, excessive right trunk sidebending, lack of arm swing 03/03/19: goal progress LTG Duration 04/11/19 Six Impairment gait [place] Steamer Operator Goal (LTG) Josiah will be able to safely walk on uneven surfaces with use of soft ankle brace instead of his metal AFO including in his garden. 11/17/18: excellent goal progress, mostly met LTG Duration Met Five Impairment strength Senior Living Goal (LTG) Patient will improve his LE strength to be able to step over a 6 on bject independently and safely with either LE without catching foot or losing balance LTG Duration MET Four Impairment functional mobility M[place] Steamer Operator Goal (LTG) Patient able to perform car transfers and floor transfers with ease, without loss of balance to improve his safety and quality of life LTG Duration MET Three Impairment Patient education Moly[place]um Steamer Operator Goal (LTG) Progress HEP, patient to be independent and compliant with updated HEP as his function continues to improve 11/17/18: ongoing progress LTG Duration 04/11/19 Two Impairment balance Senior Living Goal (LTG) Improve Dynamic gait index to 19 or greater out of 24 for decreased fall risk 08/22/18: . new goal of 11/22/18: 03/03/19: LTG Duration 04/11/19 One Impairment functional mobility/gait Molybdenum Steamer Operator Goal (LTG) Patient to improve 6 min walk test test to 1200 feet. 08/22/18: goal progress at 1025 ft 11/17/18 goal progress 1t 1085 ft 03/03/19: 954' LTG Duration 04/11/19 Assessment Summary Assessment With today's reassessment, pt' s testing shows that he has reached a plateau, with minimal progress over the past few months. Pt was fairly distressed upon learning this, and resistant to discharge. Therapist and patient discussed plan, and both are agreeable to pt returning for his next four scheduled visits , during which a comprehensive home exercise plan will be formed and put into practice, for pt to continue independently. Pt will then likely be discharged in one month Physical Therapy Plan Frequency and Duration Frequency of Treatment 1x/Week Duration of Treatment 1 Month Plan of Care Start Date 03/03/19 Plan of Care End Date 04/02/19 Therapeutic Interventions Therapeutic Interventions Aquatic Therapy,Balance Training,Gait Training,Home Exercise Program,Neuromuscular Re-education,Patient/ Caregiver Education,Self-Care/ Home Management,Therapeutic Activities,Therapeutic Exercises Next Visit Focus/Plan Next Note Type Treatment Note Next Visit Plan Work toward independent HEP
--- NOTE | 2019-03-03 17:14 | PT.OPPOC ---
Current Diagnoses Spastic hemiplegia affecting right dominant side (03/03/19) Cerebral infarction due to unspecified occlusion or stenosis of left middle cerebral artery (03/03/19) Repeated falls (03/03/19) Apraxia (03/03/19) Weakness (03/03/19) Visit Care Team Role Provider Type H Naman Olmstead MD Family Provider Physician Primary Care Provider Specialty: Medical Address: [address] [place] [address], [phone] Email: [email or web address] Marietta Lawler Attending Provider Non-Staff Specialty: Medical Address: [address] [place] [address], [id number] Email: Plan Of Care PT-OP-T Assessment and Plan Start: 08/19/17 08:09 Freq: Status: Active Protocol: Document 03/03/19 15:15 DCW (Rec: 03/03/19 17:13 DCW [id number]) Physical Therapy Assessment Goals Seven Impairment gait mechanics Crusher And Blender Operator Goal (LTG) Josiah will demonstrate 50% decrease in compensatory strategies in his gait which include excessive right hip inversion, excessive right trunk sidebending, lack of arm swing 03/03/19: goal progress LTG Duration 04/11/19 Six Impairment gait Shelter Goal (LTG) Josiah will be able to safely walk on uneven surfaces with use of soft ankle brace instead of his metal AFO including in his garden. 11/17/18: excellent goal progress, mostly met LTG Duration Met Five Impairment strength Shelter Goal (LTG) Patient will improve his LE strength to be able to step over a 6 on bject independently and safely with either LE without catching foot or losing balance LTG Duration MET Four Impairment functional mobility Crusher And Blender Operator Goal (LTG) Patient able to perform car transfers and floor transfers with ease, without loss of balance to improve his safety and quality of life LTG Duration MET Three Impairment Patient education Crusher And Blender Operator Goal (LTG) Progress HEP, patient to be independent and compliant with updated HEP as his function continues to improve 11/17/18: ongoing progress LTG Duration 04/11/19 Two Impairment balance Shelter Goal (LTG) Improve Dynamic gait index to 19 or greater out of 24 for decreased fall risk 08/22/18: . new goal of 11/22/18: 03/03/19: LTG Duration 04/11/19 One Impairment functional mobility/gait Crusher And Blender Operator Goal (LTG) Patient to improve 6 min walk test test to 1200 feet. 08/22/18: goal progress at 1025 ft 11/17/18 goal progress 1t 1085 ft 03/03/19: 954' LTG Duration 04/11/19 Assessment Summary Assessment With today's reassessment, pt' s testing shows that he has reached a plateau, with minimal progress over the past few months. Pt was fairly distressed upon learning this, and resistant to discharge. Therapist and patient discussed plan, and both are agreeable to pt returning for his next four scheduled visits , during which a comprehensive home exercise plan will be formed and put into practice, for pt to continue independently. Pt will then likely be discharged in one month Physical Therapy Plan Frequency and Duration Frequency of Treatment 1x/Week Duration of Treatment 1 Month Plan of Care Start Date 03/03/19 Plan of Care End Date 04/02/19 Therapeutic Interventions Therapeutic Interventions Aquatic Therapy,Balance Training,Gait Training,Home Exercise Program,Neuromuscular Re-education,Patient/ Caregiver Education,Self-Care/ Home Management,Therapeutic Activities,Therapeutic Exercises Next Visit Focus/Plan Next Note Type Treatment Note Next Visit Plan Work toward independent HEP Plan of Care Dates Plan of Care Start Date 03/03/19 Plan of Care End Date 04/02/19
--- NOTE | 2019-03-10 14:38 | PT.OTN ---
Current Diagnoses Spastic hemiplegia affecting right dominant side (03/10/19) Cerebral infarction due to unspecified occlusion or stenosis of left middle cerebral artery (03/10/19) Repeated falls (03/10/19) Apraxia (03/10/19) Weakness (03/10/19) Physical Therapy Treatment Note PT-OP-A Visit Information Start: 08/19/17 08:09 Freq: Status: Active Protocol: Document 03/10/19 13:45 DCW (Rec: 03/10/19 14:38 DCW [id number]) Out-Patient Physical Therapy Visit Information Visit Information Visit Type Treatment Note Visit Start Time 13:45 Visit Stop Time 14:30 Total Visit Minutes 45 Number of INSPECTOR SCALES Visits 0 PT-OP-C Subjective Start: 08/19/17 08:09 Freq: Status: Active Protocol: Document 03/10/19 13:45 DCW (Rec: 03/10/19 14:38 DCW [id number]) OP-PT Subjective Patient Comments Patient Comments Pt feels good, no foot pain. PT-OP-E Functional Tests Start: 01/21/18 14:41 Freq: Status: Active Protocol: Document 03/03/19 15:15 DCW (Rec: 03/03/19 15:55 DCW [id number]) Functional Tests 6 Minute Walk Test Distance 954 Device Used Ankle Brace Dynamic Gait Index (DGI) Score 15/24 DGI Impairment Rating 20 to <40% Impaired (Score 15- 19) Functional Gait Assessment Score 15/30 Functional Gait Assessment Impairment 40 to <60% Impaired (Score 13- Rating 18) PT-OP-F Manual Assessment Start: 02/12/18 13:26 Freq: Status: Active Protocol: Document 03/03/19 15:15 DCW (Rec: 03/03/19 15:55 DCW [id number]) Manual Assessments Joint Mobility Assessment Joint Mobility Assessment Mild ankle pain, nothing that I can't deal with. 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 PT-OP-Q Treatments Start: 08/19/17 08:09 Freq: Status: Active Protocol: Document 03/10/19 13:45 DCW (Rec: 03/10/19 14:38 DCW [id number]) Cardio Equipment Elliptical Duration (Minutes) 5 Resistance 6 Other incorporation of UE's; low hold, manual assist right Therapeutic Exercises Standing Exercises step-ups Standing Exercise Name Forward, Lateral Side bilateral Equipment Used 6 Neuro Re-Education Treatment Balance Activities 7 Details SLS /c 90/90 flexion in up leg 6 Details Tandem Stance Surface Bates foam 5 Details SLS Surface Bates foam 4 Details Modified single leg deadlift 3 Details LE clock 2 Details Toe-taps on cones 1 Details Single leg ball touches to cone PT-OP-R Modalities Start: 08/19/17 08:09 Freq: Status: Active Protocol: Document 12/31/17 13:33 LRN (Rec: 12/31/17 14:41 LRN [id number]) Electric Stimulation Electric Stimulation Martiniquais Stimulation Duration (Minutes) 10 Intensity 39 Contraction Type Normal High/Low High Cycle 10/10 Patient Position Sitting Comments Electrodes on R anterior tib for ankle DF PT-OP-S Aquatic Treatment Start: 09/27/17 14:34 Freq: Status: Active Protocol: Document 11/22/17 13:00 TMS (Rec: 11/22/17 16:26 TMS [id number]) Aquatics Treatment Pool Entry/Exit Pool Entry/Exit Method Stairs Assistance Standby Assistance Water Walking Forwards Water Level Chest Level Level of Assistance Standby Assistance Comments Cues, with and without fins. Lower Extremity Exercises 5 Details Single leg standing Body Position Standing Water Level Chest Level 1 Details Right hip AB/AD. Body Position Standing Water Level Chest Level Lower Extremity Stretches 1 Details Gastroc stretching Body Position Standing Water Level Waist Level Comments Manual assist Upper Extremity Stretches 1 Details Horizontal AB/AD Body Position Standing Water Level Chest Level Equipment Large resistance barbells Reps/Duration x 15 reps Swim Strokes Flutter Equipment Fins,Kickboard Comments Min-A Backstroke Other Equipment Used With and without fins Comments 5 minutes PT-OP-T Assessment and Plan Start: 08/19/17 08:09 Freq: Status: Active Protocol: Document 03/10/19 13:45 DCW (Rec: 03/10/19 14:38 DCW [id number]) Physical Therapy Assessment Goals Seven Impairment gait mechanics Mcfp Goal (LTG) Josiah will demonstrate 50% decrease in compensatory strategies in his gait which include excessive right hip inversion, excessive right trunk sidebending, lack of arm swing 03/03/19: goal progress LTG Duration 04/11/19 Six Impairment gait Mcfp Goal (LTG) Josiah will be able to safely walk on uneven surfaces with use of soft ankle brace instead of his metal AFO including in his garden. 11/17/18: excellent goal progress, mostly met LTG Duration Met Five Impairment strength Sports Coordinator Goal (LTG) Patient will improve his LE strength to be able to step over a 6 on bject independently and safely with either LE without catching foot or losing balance LTG Duration MET Four Impairment functional mobility Sports Coordinator Goal (LTG) Patient able to perform car transfers and floor transfers with ease, without loss of balance to improve his safety and quality of life LTG Duration MET Three Impairment Patient education Sports Coordinator Goal (LTG) Progress HEP, patient to be independent and compliant with updated HEP as his function continues to improve 11/17/18: ongoing progress LTG Duration 04/11/19 Two Impairment balance Mcfp Goal (LTG) Improve Dynamic gait index to 19 or greater out of 24 for decreased fall risk 08/22/18: . new goal of 11/22/18: 03/03/19: LTG Duration 04/11/19 One Impairment functional mobility/gait Sports Coordinator Goal (LTG) Patient to improve 6 min walk test test to 1200 feet. 08/22/18: goal progress at 1025 ft 11/17/18 goal progress 1t 1085 ft 03/03/19: 954' LTG Duration 04/11/19 Assessment Summary Assessment Trial of pt's new HEP, hopefully pt will practice at home and will return for his next visit with any questions and concerns. Physical Therapy Plan Frequency and Duration Frequency of Treatment 1x/Week Duration of Treatment 1 Month Plan of Care Start Date 03/03/19 Plan of Care End Date 04/02/19 Therapeutic Interventions Therapeutic Interventions Aquatic Therapy,Balance Training,Gait Training,Home Exercise Program,Neuromuscular Re-education,Patient/ Caregiver Education,Self-Care/ Home Management,Therapeutic Activities,Therapeutic Exercises Next Visit Focus/Plan Next Note Type Treatment Note Next Visit Plan Work toward independent HEP
--- NOTE | 2019-03-14 14:33 | PT.OTN ---
Current Diagnoses Spastic hemiplegia affecting right dominant side (03/14/19) Cerebral infarction due to unspecified occlusion or stenosis of left middle cerebral artery (03/14/19) Repeated falls (03/14/19) Apraxia (03/14/19) Weakness (03/14/19) Physical Therapy Treatment Note PT-OP-A Visit Information Start: 08/19/17 08:09 Freq: Status: Active Protocol: Document 03/14/19 13:45 DCW (Rec: 03/14/19 14:33 DCW [id number]) Out-Patient Physical Therapy Visit Information Visit Information Visit Type Treatment Note Visit Start Time 13:45 Visit Stop Time 14:30 Total Visit Minutes 45 Number of DOUGHNUT MACHINE OPERATOR Visits 0 PT-OP-C Subjective Start: 08/19/17 08:09 Freq: Status: Active Protocol: Document 03/14/19 13:45 DCW (Rec: 03/14/19 14:33 DCW [id number]) OP-PT Subjective Patient Comments Patient Comments Pt reports he had a short break between OT and PT, was able to go eat a salad, and is feeling pretty good. Admits that he has not worked on his HEP. I've been meaning to everyday, but school work, stripping my room to prepare for painting, it just hasn't gotten done. PT-OP-E Functional Tests Start: 01/21/18 14:41 Freq: Status: Active Protocol: Document 03/03/19 15:15 DCW (Rec: 03/03/19 15:55 DCW [id number]) Functional Tests 6 Minute Walk Test Distance 954 Device Used Ankle Brace Dynamic Gait Index (DGI) Score 15/24 DGI Impairment Rating 20 to <40% Impaired (Score 15- 19) Functional Gait Assessment Score 15/30 Functional Gait Assessment Impairment 40 to <60% Impaired (Score 13- Rating 18) PT-OP-F Manual Assessment Start: 02/12/18 13:26 Freq: Status: Active Protocol: Document 03/03/19 15:15 DCW (Rec: 03/03/19 15:55 DCW [id number]) Manual Assessments Joint Mobility Assessment Joint Mobility Assessment Mild ankle pain, nothing that I can't deal with. PT-OP-G Mobility & Gait Start: 01/21/18 14:41 Freq: Status: Active Protocol: Document 03/03/19 15:15 DCW (Rec: 03/03/19 15:55 DCW [id number]) OP Gait Assessment Assistive Devices Assistive Device None,Straight Cane Comments Gait Comments SPC for school, amb in large stores. PT-OP-Q Treatments Start: 08/19/17 08:09 Freq: Status: Active Protocol: Document 03/14/19 13:45 DCW (Rec: 03/14/19 14:33 DCW [id number]) Cardio Equipment Elliptical Duration (Minutes) 5 Resistance 6 Other incorporation of UE's; low hold, manual assist right Gym Equipment Shuttle Balance Red Details Wide DONNA Comments PVC Sword fighting, tandem stance along fulcrum Sport Cord 1 Exercise Details Stepping over yana Cord/Resistance Red Comments Forward, Lateral Neuro Re-Education Treatment Balance Activities 4 Details Modified single leg deadlift 3 Details LE clock PT-OP-R Modalities Start: 08/19/17 08:09 Freq: Status: Active Protocol: Document 12/31/17 13:33 LRN (Rec: 12/31/17 14:41 LRN [id number]) Electric Stimulation Electric Stimulation Nicaraguan Stimulation Duration (Minutes) 10 Intensity 39 Contraction Type Normal High/Low High Cycle 10/10 Patient Position Sitting Comments Electrodes on R anterior tib for ankle DF PT-OP-S Aquatic Treatment Start: 09/27/17 14:34 Freq: Status: Active Protocol: Document 11/22/17 13:00 TMS (Rec: 11/22/17 16:26 TMS [id number]) Aquatics Treatment Pool Entry/Exit Pool Entry/Exit Method Stairs Assistance Standby Assistance Water Walking Forwards Water Level Chest Level Level of Assistance Standby Assistance Comments Cues, with and without fins. Lower Extremity Exercises 5 Details Single leg standing Body Position Standing Water Level Chest Level 1 Details Right hip AB/AD. Body Position Standing Water Level Chest Level Lower Extremity Stretches 1 Details Gastroc stretching Body Position Standing Water Level Waist Level Comments Manual assist Upper Extremity Stretches 1 Details Horizontal AB/AD Body Position Standing Water Level Chest Level Equipment Large resistance barbells Reps/Duration x 15 reps Swim Strokes Flutter Equipment Fins,Kickboard Comments Min-A Backstroke Other Equipment Used With and without fins Comments 5 minutes PT-OP-T Assessment and Plan Start: 08/19/17 08:09 Freq: Status: Active Protocol: Document 03/14/19 13:45 DCW (Rec: 03/14/19 14:33 DCW [id number]) Physical Therapy Assessment Impairments Impairments Balance,Functional Activities, Functional Mobility,Gait, Strength,Tone Goals Seven Impairment gait mechanics Grain Mill Worker Goal (LTG) Josiah will demonstrate 50% decrease in compensatory strategies in his gait which include excessive right hip inversion, excessive right trunk sidebending, lack of arm swing 03/03/19: goal progress LTG Duration 04/11/19 Six Impairment gait Prison Goal (LTG) Josiah will be able to safely walk on uneven surfaces with use of soft ankle brace instead of his metal AFO including in his garden. 11/17/18: excellent goal progress, mostly met LTG Duration Met Five Impairment strength Grain Mill Worker Goal (LTG) Patient will improve his LE strength to be able to step over a 6 on bject independently and safely with either LE without catching foot or losing balance LTG Duration MET Four Impairment functional mobility Grain Mill Worker Goal (LTG) Patient able to perform car transfers and floor transfers with ease, without loss of balance to improve his safety and quality of life LTG Duration MET Three Impairment Patient education Grain Mill Worker Goal (LTG) Progress HEP, patient to be independent and compliant with updated HEP as his function continues to improve 11/17/18: ongoing progress LTG Duration 04/11/19 Two Impairment balance Grain Mill Worker Goal (LTG) Improve Dynamic gait index to 19 or greater out of 24 for decreased fall risk 08/22/18: . new goal of 11/22/18: 03/03/19: LTG Duration 04/11/19 One Impairment functional mobility/gait Prison Goal (LTG) Patient to improve 6 min walk test test to 1200 feet. 08/22/18: goal progress at 1025 ft 11/17/18 goal progress 1t 1085 ft 03/03/19: 954' LTG Duration 04/11/19 Assessment Summary Assessment Pt has not tried his HEP, so he had no questions or concerns. Pt should benefit from an independent HEP if he is motivated to perform. Physical Therapy Plan Frequency and Duration Frequency of Treatment 1x/Week Duration of Treatment 1 Month Plan of Care Start Date 03/03/19 Plan of Care End Date 04/02/19 Therapeutic Interventions Therapeutic Interventions Aquatic Therapy,Balance Training,Gait Training,Home Exercise Program,Neuromuscular Re-education,Patient/ Caregiver Education,Self-Care/ Home Management,Therapeutic Activities,Therapeutic Exercises Next Visit Focus/Plan Next Note Type Treatment Note Next Visit Plan Work toward independent HEP
--- NOTE | 2019-03-24 16:10 | PT.OTN ---
Current Diagnoses Spastic hemiplegia affecting right dominant side (03/24/19) Cerebral infarction due to unspecified occlusion or stenosis of left middle cerebral artery (03/24/19) Repeated falls (03/24/19) Apraxia (03/24/19) Weakness (03/24/19) Physical Therapy Treatment Note PT-OP-A Visit Information Start: 08/19/17 08:09 Freq: Status: Active Protocol: Document 03/24/19 15:20 DCW (Rec: 03/24/19 16:10 DCW [id number]) Out-Patient Physical Therapy Visit Information Visit Information Visit Type Treatment Note Visit Note Pt arrived 5 min late Visit Start Time 15:20 Visit Stop Time 16:00 Total Visit Minutes 40 Number of MATCHER LEATHER PARTS Visits 0 PT-OP-C Subjective Start: 08/19/17 08:09 Freq: Status: Active Protocol: Document 03/24/19 15:20 DCW (Rec: 03/24/19 16:10 DCW [id number]) OP-PT Subjective Patient Comments Patient Comments Pt reports he had a final today in his reading class, feels like it went well. PT-OP-E Functional Tests Start: 01/21/18 14:41 Freq: Status: Active Protocol: Document 03/03/19 15:15 DCW (Rec: 03/03/19 15:55 DCW [id number]) Functional Tests 6 Minute Walk Test Distance 954 Device Used Ankle Brace Dynamic Gait Index (DGI) Score 15/24 DGI Impairment Rating 20 to <40% Impaired (Score 15- 19) Functional Gait Assessment Score 15/30 Functional Gait Assessment Impairment 40 to <60% Impaired (Score 13- Rating 18) PT-OP-F Manual Assessment Start: 02/12/18 13:26 Freq: Status: Active Protocol: Document 03/03/19 15:15 DCW (Rec: 03/03/19 15:55 DCW [id number]) Manual Assessments Joint Mobility Assessment Joint Mobility Assessment Mild ankle pain, nothing that I can't deal with. PT-OP-G Mobility & Gait Start: 01/21/18 14:41 Freq: Status: Active Protocol: Document 03/03/19 15:15 DCW (Rec: 03/03/19 15:55 DCW [id number]) OP Gait Assessment Assistive Devices Assistive Device None,Straight Cane Comments Gait Comments SPC for school, amb in large stores. PT-OP-Q Treatments Start: 08/19/17 08:09 Freq: Status: Active Protocol: Document 03/24/19 15:20 DCW (Rec: 03/24/19 16:10 DCW [id number]) Cardio Equipment Elliptical Duration (Minutes) 5 Resistance 6 Other incorporation of UE's; low hold, manual assist right Gym Equipment Shuttle Balance Red Details Wide DONNA Comments PVC Sword fighting, tandem stance along fulcrum Sport Cord 1 Exercise Details Stepping over yana Cord/Resistance Blue Comments Forward, Lateral PT-OP-R Modalities Start: 08/19/17 08:09 Freq: Status: Active Protocol: Document 12/31/17 13:33 LRN (Rec: 12/31/17 14:41 LRN [id number]) Electric Stimulation Electric Stimulation [place] Stimulation Duration (Minutes) 10 Intensity 39 Contraction Type Normal High/Low High Cycle 10/10 Patient Position Sitting Comments Electrodes on R anterior tib for ankle DF PT-OP-S Aquatic Treatment Start: 09/27/17 14:34 Freq: Status: Active Protocol: Document 11/22/17 13:00 TMS (Rec: 11/22/17 16:26 TMS [id number]) Aquatics Treatment Pool Entry/Exit Pool Entry/Exit Method Stairs Assistance Standby Assistance Water Walking Forwards Water Level Chest Level Level of Assistance Standby Assistance Comments Cues, with and without fins. Lower Extremity Exercises 5 Details Single leg standing Body Position Standing Water Level Chest Level 1 Details Right hip AB/AD. Body Position Standing Water Level Chest Level Lower Extremity Stretches 1 Details Gastroc stretching Body Position Standing Water Level Waist Level Comments Manual assist Upper Extremity Stretches 1 Details Horizontal AB/AD Body Position Standing Water Level Chest Level Equipment Large resistance barbells Reps/Duration x 15 reps Swim Strokes Flutter Equipment Fins,Kickboard Comments Min-A Backstroke Other Equipment Used With and without fins Comments 5 minutes PT-OP-T Assessment and Plan Start: 08/19/17 08:09 Freq: Status: Active Protocol: Document 03/24/19 15:20 DCW (Rec: 03/24/19 16:10 DCW [id number]) Physical Therapy Assessment Impairments Impairments Balance,Functional Activities, Functional Mobility,Gait, Strength,Tone Goals Seven Impairment gait mechanics Usp Goal (LTG) Josiah will demonstrate 50% decrease in compensatory strategies in his gait which include excessive right hip inversion, excessive right trunk sidebending, lack of arm swing 03/03/19: goal progress LTG Duration 04/11/19 Six Impairment gait Switch Cleaner Goal (LTG) Josiah will be able to safely walk on uneven surfaces with use of soft ankle brace instead of his metal AFO including in his garden. 11/17/18: excellent goal progress, mostly met LTG Duration Met Five Impairment strength Usp Goal (LTG) Patient will improve his LE strength to be able to step over a 6 on bject independently and safely with either LE without catching foot or losing balance LTG Duration MET Four Impairment functional mobility Switch Cleaner Goal (LTG) Patient able to perform car transfers and floor transfers with ease, without loss of balance to improve his safety and quality of life LTG Duration MET Three Impairment Patient education Switch Cleaner Goal (LTG) Progress HEP, patient to be independent and compliant with updated HEP as his function continues to improve 11/17/18: ongoing progress LTG Duration 04/11/19 Two Impairment balance Usp Goal (LTG) Improve Dynamic gait index to 19 or greater out of 24 for decreased fall risk 08/22/18: . new goal of 11/22/18: 03/03/19: LTG Duration 04/11/19 One Impairment functional mobility/gait Switch Cleaner Goal (LTG) Patient to improve 6 min walk test test to 1200 feet. 08/22/18: goal progress at 1025 ft 11/17/18 goal progress 1t 1085 ft 03/03/19: 954' LTG Duration 04/11/19 Assessment Summary Assessment Pt worked very hard on stepping over a yana with the [place] resistance, was able to perform actions that he had previously deemed that he was unable to do. Pt will likely be discharged to an independent home program following his next visit. Physical Therapy Plan Frequency and Duration Frequency of Treatment 1x/Week Duration of Treatment 1 Month Plan of Care Start Date 03/03/19 Plan of Care End Date 04/02/19 Therapeutic Interventions Therapeutic Interventions Aquatic Therapy,Balance Training,Gait Training,Home Exercise Program,Neuromuscular Re-education,Patient/ Caregiver Education,Self-Care/ Home Management,Therapeutic Activities,Therapeutic Exercises Next Visit Focus/Plan Next Note Type Treatment Note Next Visit Plan Work toward independent HEP
--- NOTE | 2019-03-31 15:24 | PT.OTN ---
Current Diagnoses Spastic hemiplegia affecting right dominant side (03/31/19) Cerebral infarction due to unspecified occlusion or stenosis of left middle cerebral artery (03/31/19) Repeated falls (03/31/19) Apraxia (03/31/19) Weakness (03/31/19) Physical Therapy Treatment Note PT-OP-A Visit Information Start: 08/19/17 08:09 Freq: Status: Active Protocol: Document 03/31/19 14:33 DCW (Rec: 03/31/19 15:24 DCW [id number]) Out-Patient Physical Therapy Visit Information Visit Information Visit Type Treatment Note Visit Note Pt arrived 5 min late Visit Start Time 14:33 Visit Stop Time 15:15 Total Visit Minutes 42 Number of VP HUMAN RESOURCES Visits 0 PT-OP-C Subjective Start: 08/19/17 08:09 Freq: Status: Active Protocol: Document 03/31/19 14:33 DCW (Rec: 03/31/19 15:24 DCW [id number]) OP-PT Subjective Patient Comments Patient Comments Pt has been practicing his HEP , reports it takes him about an hour to complete, and it's getting easier, but it's still hard. PT-OP-E Functional Tests Start: 01/21/18 14:41 Freq: Status: Active Protocol: Document 03/03/19 15:15 DCW (Rec: 03/03/19 15:55 DCW [id number]) Functional Tests 6 Minute Walk Test Distance 954 Device Used Ankle Brace Dynamic Gait Index (DGI) Score 15/24 DGI Impairment Rating 20 to <40% Impaired (Score 15- 19) Functional Gait Assessment Score 15/30 Functional Gait Assessment Impairment 40 to <60% Impaired (Score 13- Rating 18) PT-OP-F Manual Assessment Start: 02/12/18 13:26 Freq: Status: Active Protocol: Document 03/03/19 15:15 DCW (Rec: 03/03/19 15:55 DCW [id number]) Manual Assessments Joint Mobility Assessment Joint Mobility Assessment Mild ankle pain, nothing that I can't deal with. PT-OP-G Mobility & Gait Start: 01/21/18 14:41 Freq: Status: Active Protocol: Document 03/03/19 15:15 DCW (Rec: 03/03/19 15:55 DCW [id number]) OP Gait Assessment Assistive Devices Assistive Device None,Straight Cane Comments Gait Comments SPC for school, amb in large stores. PT-OP-Q Treatments Start: 08/19/17 08:09 Freq: Status: Active Protocol: Document 03/31/19 14:33 DCW (Rec: 03/31/19 15:24 DCW [id number]) Cardio Equipment Elliptical Duration (Minutes) 5 Resistance 6 Other incorporation of UE's; low hold, manual assist right Gym Equipment Shuttle Recovery Plyometric Hopping Details Single leg hopping Resistance 25# Shuttle Balance Red Details Wide DONNA Comments PVC Sword fighting, tandem stance along fulcrum Sport Cord 1 Exercise Details Stepping over yana Cord/Resistance Blue Comments Forward, Lateral PT-OP-R Modalities Start: 08/19/17 08:09 Freq: Status: Active Protocol: Document 12/31/17 13:33 LRN (Rec: 12/31/17 14:41 LRN [id number]) Electric Stimulation Electric Stimulation [place] Stimulation Duration (Minutes) 10 Intensity 39 Contraction Type Normal High/Low High Cycle 10/10 Patient Position Sitting Comments Electrodes on R anterior tib for ankle DF PT-OP-S Aquatic Treatment Start: 09/27/17 14:34 Freq: Status: Active Protocol: Document 11/22/17 13:00 TMS (Rec: 11/22/17 16:26 TMS [id number]) Aquatics Treatment Pool Entry/Exit Pool Entry/Exit Method Stairs Assistance Standby Assistance Water Walking Forwards Water Level Chest Level Level of Assistance Standby Assistance Comments Cues, with and without fins. Lower Extremity Exercises 5 Details Single leg standing Body Position Standing Water Level Chest Level 1 Details Right hip AB/AD. Body Position Standing Water Level Chest Level Lower Extremity Stretches 1 Details Gastroc stretching Body Position Standing Water Level Waist Level Comments Manual assist Upper Extremity Stretches 1 Details Horizontal AB/AD Body Position Standing Water Level Chest Level Equipment Large resistance barbells Reps/Duration x 15 reps Swim Strokes Flutter Equipment Fins,Kickboard Comments Min-A Backstroke Other Equipment Used With and without fins Comments 5 minutes PT-OP-T Assessment and Plan Start: 08/19/17 08:09 Freq: Status: Active Protocol: Document 03/31/19 14:33 DCW (Rec: 03/31/19 15:24 DCW [id number]) Physical Therapy Assessment Impairments Impairments Balance,Functional Activities, Functional Mobility,Gait, Strength,Tone Goals Seven Impairment gait mechanics Prison Goal (LTG) Josiah will demonstrate 50% decrease in compensatory strategies in his gait which include excessive right hip inversion, excessive right trunk sidebending, lack of arm swing 03/03/19: goal progress LTG Duration 04/11/19 Six Impairment gait It Security Manager Goal (LTG) Josiah will be able to safely walk on uneven surfaces with use of soft ankle brace instead of his metal AFO including in his garden. 11/17/18: excellent goal progress, mostly met LTG Duration Met Five Impairment strength Prison Goal (LTG) Patient will improve his LE strength to be able to step over a 6 on bject independently and safely with either LE without catching foot or losing balance LTG Duration MET Four Impairment functional mobility Prison Goal (LTG) Patient able to perform car transfers and floor transfers with ease, without loss of balance to improve his safety and quality of life LTG Duration MET Three Impairment Patient education Prison Goal (LTG) Progress HEP, patient to be independent and compliant with updated HEP as his function continues to improve 11/17/18: ongoing progress LTG Duration 04/11/19 Two Impairment balance Prison Goal (LTG) Improve Dynamic gait index to 19 or greater out of 24 for decreased fall risk 08/22/18: . new goal of 11/22/18: 03/03/19: LTG Duration 04/11/19 One Impairment functional mobility/gait Prison Goal (LTG) Patient to improve 6 min walk test test to 1200 feet. 08/22/18: goal progress at 1025 ft 11/17/18 goal progress 1t 1085 ft 03/03/19: 954' LTG Duration 04/11/19 Assessment Summary Assessment Pt doing well with his HEP, feels comfortable continuing independently at this time. Pt agrees that he has reached a plateau. Pt will return in the future for therapy if he feels like his function is declining, or he needs an additional challenge to his HEP, bu tis aware he will need a new referral. Physical Therapy Plan Frequency and Duration Frequency of Treatment 1x/Week Duration of Treatment 1 Month Plan of Care Start Date 03/03/19 Plan of Care End Date 04/02/19 Therapeutic Interventions Therapeutic Interventions Aquatic Therapy,Balance Training,Gait Training,Home Exercise Program,Neuromuscular Re-education,Patient/ Caregiver Education,Self-Care/ Home Management,Therapeutic Activities,Therapeutic Exercises Discharge Physical Therapy Discharge Reasons Plateau in Progress Next Visit Focus/Plan Next Note Type Discharge Summary
--- NOTE | 2019-03-31 15:24 | PT.OPDS ---
Current Diagnoses Spastic hemiplegia affecting right dominant side (03/31/19) Cerebral infarction due to unspecified occlusion or stenosis of left middle cerebral artery (03/31/19) Repeated falls (03/31/19) Apraxia (03/31/19) Weakness (03/31/19) Visit Care Team Role Provider Type H Naman Olmstead MD Family Provider Physician Primary Care Provider Specialty: Medical Address: [address] [place] [address], [phone] Email: [email or web address] Marietta Lawler Attending Provider Non-Staff Specialty: Medical Address: [address] [place] [address], [id number] Email: Visit Number Visit Number 23 Discharge Summary PT-OP-C Subjective Start: 08/19/17 08:09 Freq: Status: Active Protocol: Document 03/31/19 14:33 DCW (Rec: 03/31/19 15:24 DCW [id number]) OP-PT Subjective Patient Comments Patient Comments Pt has been practicing his HEP , reports it takes him about an hour to complete, and it's getting easier, but it's still hard. PT-OP-E Functional Tests Start: 01/21/18 14:41 Freq: Status: Active Protocol: Document 03/03/19 15:15 DCW (Rec: 03/03/19 15:55 DCW [id number]) Functional Tests 6 Minute Walk Test Distance 954 Device Used Ankle Brace Dynamic Gait Index (DGI) Score 15/24 DGI Impairment Rating 20 to <40% Impaired (Score 15- 19) Functional Gait Assessment Score 15/30 Functional Gait Assessment Impairment 40 to <60% Impaired (Score 13- Rating 18) PT-OP-F Manual Assessment Start: 02/12/18 13:26 Freq: Status: Active Protocol: Document 03/03/19 15:15 DCW (Rec: 03/03/19 15:55 DCW [id number]) Manual Assessments Joint Mobility Assessment Joint Mobility Assessment Mild ankle pain, nothing that I can't deal with. PT-OP-G Mobility & Gait Start: 01/21/18 14:41 Freq: Status: Active Protocol: Document 03/03/19 15:15 DCW (Rec: 03/03/19 15:55 DCW [id number]) OP Gait Assessment Assistive Devices Assistive Device None,Straight Cane Comments Gait Comments SPC for school, amb in large stores. PT-OP-T Assessment and Plan Start: 08/19/17 08:09 Freq: Status: Active Protocol: Document 03/31/19 14:33 DCW (Rec: 03/31/19 15:24 DCW [id number]) Physical Therapy Assessment Impairments Impairments Balance,Functional Activities, Functional Mobility,Gait, Strength,Tone Goals Seven Impairment gait mechanics Senior Living Goal (LTG) Josiah will demonstrate 50% decrease in compensatory strategies in his gait which include excessive right hip inversion, excessive right trunk sidebending, lack of arm swing 03/03/19: goal progress LTG Duration 04/11/19 Six Impairment gait Senior Living Goal (LTG) Josiah will be able to safely walk on uneven surfaces with use of soft ankle brace instead of his metal AFO including in his garden. 11/17/18: excellent goal progress, mostly met LTG Duration Met Five Impairment strength Marketing Writer Goal (LTG) Patient will improve his LE strength to be able to step over a 6 on bject independently and safely with either LE without catching foot or losing balance LTG Duration MET Four Impairment functional mobility Senior Living Goal (LTG) Patient able to perform car transfers and floor transfers with ease, without loss of balance to improve his safety and quality of life LTG Duration MET Three Impairment Patient education Marketing Writer Goal (LTG) Progress HEP, patient to be independent and compliant with updated HEP as his function continues to improve 11/17/18: ongoing progress LTG Duration 04/11/19 Two Impairment balance Marketing Writer Goal (LTG) Improve Dynamic gait index to 19 or greater out of 24 for decreased fall risk 08/22/18: . new goal of 11/22/18: 03/03/19: LTG Duration 04/11/19 One Impairment functional mobility/gait Marketing Writer Goal (LTG) Patient to improve 6 min walk test test to 1200 feet. 08/22/18: goal progress at 1025 ft 11/17/18 goal progress 1t 1085 ft 03/03/19: 954' LTG Duration 04/11/19 Assessment Summary Assessment Pt doing well with his HEP, feels comfortable continuing independently at this time. Pt agrees that he has reached a plateau. Pt will return in the future for therapy if he feels like his function is declining, or he needs an additional challenge to his HEP, but is aware he will need a new referral. Physical Therapy Plan Frequency and Duration Frequency of Treatment 1x/Week Duration of Treatment 1 Month Plan of Care Start Date 03/03/19 Plan of Care End Date 04/02/19 Therapeutic Interventions Therapeutic Interventions Aquatic Therapy,Balance Training,Gait Training,Home Exercise Program,Neuromuscular Re-education,Patient/ Caregiver Education,Self-Care/ Home Management,Therapeutic Activities,Therapeutic Exercises Discharge Physical Therapy Discharge Reasons Plateau in Progress Next Visit Focus/Plan Next Note Type Discharge Summary
== END 2019-04-17 17:16 ==
LOC: PHYS 14:30
PROVIDERS: Family Provider Family Medicine; PCP Family Medicine; Visit Provider Internal Medicine
DX: I63.512 Cerebral infarction due to unspecified occlusion or stenosis of left middle cerebral artery (principal); G81.11 Spastic hemiplegia affecting right dominant side; R48.2 Apraxia; R53.1 Weakness; R29.6 Repeated falls
CPT/HCPCS: 97032; 97110; 97112; 97113; 97116; 97140; 97530; 97535

== ENCOUNTER 2019-04-17 07:30 | Outpatient (RCR) | payer OTHER, SELFPAY ==
--- NOTE | 2017-08-19 08:52 | OT.OPPN ---
On August 17, 2017 our therapy services consisting of Speech, Occupational, and Physical therapy transitioned from [employer] electronic documentation system to a new [employer] electronic system. All documentation prior to August 17 can be found under [employer] saved data. From August 17 forward, all medical record documentation will be in [employer] 6[employer]1.
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
== END 2019-04-17 17:25 ==
LOC: OT 07:30
PROVIDERS: Family Provider Family Medicine; PCP Family Medicine; Visit Provider Physical Medicine & Rehabilitation
DX: G81.11 Spastic hemiplegia affecting right dominant side (principal); I63.9 Cerebral infarction, unspecified; R27.9 Unspecified lack of coordination
CPT/HCPCS: 97110; 97112; 97530; 97535